=== PATIENT | male | born 1955 | race Caucasian/White ===

== ENCOUNTER 2016-04-20 08:54 | Inpatient (IN) | payer OTHER ==
[~2016-04-20] VITALS: Ht 188 cm; Wt 110.0 kg
[~2016-04-20 08:54] MED LIST: ADVIN50/60 INH; B-CO1CAP17 PO; CALC667C4 PO; CYM/60 PO; INSUINJ4 SC; LACT15SO PO; LEVO25TA PO; MIDO10TA PO; NADO20TA PO; NVLGI/PEN SQ; OMEP20CA9 PO; OXYC1TAB3 PO; PREG75CA PO; RIFA550T2 PO; RRALBUTNEB INH; VTMD1000 PO
[2016-04-20] MEDS ORDERED: METHYLPREDNISOLONE 125 MG VIAL IV STA (09:19)
[2016-04-20] MEDS ORDERED: ALBUT/IPRATROP 3MG/0.5MG NEB 3 ML VIAL INH STA (09:19)
--- NOTE | 2016-04-20 09:45 | DIAGNOSTIC IMAGING REPORT ---
CHEST ONE VIEW PORTABLE CLINICAL HISTORY: Shortness of breath. Evaluate for pneumonia. COMPARISON STUDY: Chest radiograph March 25, 2016. FINDINGS: The patient is rotated. There is no pneumothorax. Blunting of the left costophrenic angle is unchanged and likely due to epicardial fat pad. There is no evidence of pulmonary edema. There is no pneumothorax. Minimal hazy left basilar opacity is present. There are healed left rib fractures. IMPRESSION: 1. Rotated study. Mild left basilar opacity. Atelectasis is favored over pneumonia. 2. Equivocal small left pleural effusion which may reflect epicardial fat pad. Electronically signed by: Jordan Martinez M.D. 04/20/2016 9:43 AM Dictated Date/Time: 04/20/2016 9:41 AM
[2016-04-20] MEDS ORDERED: SODIUM CHLORIDE 0.9% 250ML 250 ML IV STA ×3 (10:22→12:07)
[2016-04-20 11:29] LABS: HEMATOCRIT 32.2 % (42-52); MEAN CELL VOLUME 92.5 fL (80-100); MEAN CORPUSCULAR HGB CONC 33.5 g/dl (32-36); RED BLOOD COUNT 3.48 M/uL (4.7-6.1); WHITE BLOOD COUNT 14.39 K/uL (4.8-10.8)
[2016-04-20 11:36] LABS: INR 1.1 (0.9-1.1); PARTIAL THROMBOPLASTIN RATIO 1.3; PROTHROMBIN TIME (PATIENT) 11.4 SECONDS (9.0-12.0)
[2016-04-20 11:52] LABS: BUN/CREATININE RATIO 5.7 (10-20); CALCIUM 7.3 mg/dl (8.5-10.1); CREATININE 8.1 mg/dl (0.60-1.40); POTASSIUM 4.4 mmol/L (3.5-5.1)
[2016-04-20 11:56] LABS: MEAN PLATELET VOLUME 11.5 fL (7.4-10.4); PLATELET COUNT 75 K/uL (130-400)
[2016-04-20 11:57] LABS: BASO % 0.1 %; BASO ABS # 0.02 K/uL (0-0.2); COMPLETE YES; EOS % 0.1 %; IG% 0.3 %; LARGE PLATELETS 1+; LYMPH % 3.5 %; MONO % 5.7 %; NEUT % 90.3 %
--- NOTE | 2016-04-20 12:11 | DIAGNOSTIC IMAGING REPORT ---
CHEST 2 VIEWS ROUTINE CLINICAL HISTORY: Shortness of breath. Evaluate for pneumonia. COMPARISON STUDY: Chest radiograph March 25, 2016 and April 20, 2016. FINDINGS: Lung volumes are normal. Mild left lower lung opacity likely reflects atelectasis and prominent epicardial fat pad. There is pulmonary vascular congestion. Healed left rib fractures are noted. Cardiomediastinal silhouette is stable allowing for mild patient rotation. IMPRESSION: 1. No consolidation to suggest pneumonia. 2. Linear left lower lung opacity suggestive of atelectasis. 3. Pulmonary vascular congestion without overt pulmonary edema. Electronically signed by: Jordan Martinez M.D. 04/20/2016 12:09 PM Dictated Date/Time: 04/20/2016 12:08 PM
[2016-04-20] MEDS ORDERED: LEVAQUIN 750MG / 150ML D5W IV STA (12:25)
[2016-04-20] MEDS ORDERED: GLUCOSE 10 TABS/TUBE PO PRN (12:45)
[2016-04-20] MEDS ORDERED: ALBUTEROL 0.083% NEBU SOLN 3 ML VIAL INH PRN (12:45)
[2016-04-20] MEDS ORDERED: ONDANSETRON INJ 2 MG/ML 2 ML VIAL IV PRN (12:45)
[2016-04-20] MEDS ORDERED: DEXTROSE 50% 50 ML SYR IV PRN (12:45)
[2016-04-20] MEDS ORDERED: POLYETHYLENE (MIRALAX) 17 GM PACK PO PRN (13:00)
--- NOTE | 2016-04-20 14:15 | DIAGNOSTIC IMAGING REPORT ---
BILATERAL LOWER EXTREMITY VENOUS DOPPLER CLINICAL HISTORY: Shortness of breath. COMPARISON STUDY: Bilateral lower extremity venous Doppler June 30, 2015 and left lower extremity venous Doppler October 29, 2015. TECHNIQUE: Sonography of the deep venous system of the bilateral lower extremities was performed. Compression and augmentation were evaluated. FINDINGS: This exam was compromised by suboptimal penetration. The common femoral, superficial femoral and popliteal veins were compressible. Augmentation was normal. Flow was shown within the deep calf vessels. Note was made of a small complex left popliteal fossa fluid collection that measured 4.8 x 1.9 x 0.7 cm. This may contain calcifications. IMPRESSION: 1. No evidence of deep venous thrombus within the bilateral lower extremities. 2. Suspected small complex left popliteal cyst which may contain calcified bodies. Electronically signed by: Jordan Martinez M.D. 04/20/2016 2:13 PM Dictated Date/Time: 04/20/2016 2:11 PM
--- NOTE | 2016-04-20 14:16 | History and Physical ---
History & Physical Date & Time of Service: Apr 20, 2016 at 13:54 Chief Complaint: SOB Primary Care Physician: Alix Garza M.D. History of Present Illness Source: patient, family (sister, Antoine) This is a 60 yo M with PMHx of ESRD on hemodialysis, DM II, HTN, hypothyroidism , COPD, GERD, cirrhosis of liver presenting to the ED with shortness of breath which has worsened x 1 day. He is accompanied by his sister, Antoine, who helps supply some of the history. Pt reports that last night when he was ready to go to sleep started to feel short of breath. His cough has worsened over the past few days as noted by his sister, but the patient himself cannot admit to this. He does admit to subjective fevers and chills last night. Temperature was not taken at home. He is still smoking 2-3 cigarettes daily and reports that this has not changed. His called the ambulance for him this morning because of worsening shortness of breath. Pulse ox was 88% on room air recorded by EMS. Since being in the ED he has received 3 albuterol nebulizer treatments. He is saturating in the mid 90s on room air. He denies any shortness of breath at this time. Afebrile, CXR is without infiltrates or consolidations. Past Medical/Surgical History Medical Problems: (1) Altered mental status Status: Chronic (2) Anxiety Status: Chronic (3) Benign hypertension Status: Chronic (4) Chronic hepatitis C Status: Chronic (5) Chronic osteoarthritis Status: Chronic (6) Cirrhosis of liver Status: Chronic (7) Closed left acetabular fracture Status: Chronic (8) COPD (chronic obstructive pulmonary disease) Status: Chronic (9) Depression Status: Chronic (10) Diabetes mellitus type 2 Status: Chronic (11) ESRD (end stage renal disease) on dialysis Status: Chronic (12) GERD (gastroesophageal reflux disease) Status: Chronic (13) HISTORY OF TOBACCO USE Status: Chronic (14) Hypothyroid Status: Chronic (15) OTHER PANCYTOPENIA Status: Chronic (16) PERSONAL HISTORY OF PULMONARY EMBOLISM Status: Chronic (17) PORTAL HYPERTENSION Status: Chronic Surgical Problems: (1) H/O knee surgery Status: Chronic (2) S/P cholecystectomy Status: Chronic (3) S/P tonsillectomy Status: Chronic Family History Cancer Diabetes mellitus Heart disease Social History Smoking Status: Current Every Day Smoker (2-3 cigarettes x 53 years) Smokeless Tobacco Use: No Alcohol Use: none Drug Use: none Marital Status: , in relationship Housing status: lives with significant other Occupational Status: disabled Immunizations History of Influenza Vaccine: Yes Influenza Vaccine Date: Dec 07, 2012 History of Tetanus Vaccine?: Unknown Tetanus Immunization Date: Nov 13, 2010 History of Pneumococcal: Yes Pneumococcal Date: Feb 11, 2012 History of Hepatitis B Vaccine: IN PROGRESS HAS HAD 2 SHOTS Hepatitis Immunization Date: Dec 07, 2012 Multi-Drug Resistant Organisms History of MDRO: No Allergies Coded Allergies: Cephalexin (Verified Allergy, Severe, ANAPHYLAXIS, 04/20/16) Acetaminophen (Verified Adverse Reaction, Mild, D/T LIVER, 04/20/16) Home Medications Scheduled Albuterol Sulf (Albuterol Sulfate), 5 MG INH UD Calcium Acetate (Phoslo 667 Mg), 667 MG PO TIDM Cholecalciferol (Vitamin D3), 1,000 INTER.UNIT PO DAILY Duloxetine HCl (Cymbalta), 60 MG PO HS Fluticasone Prop/Salmeterol (Advair Diskus 500/50 60 Dose), 1 PUFF INH BID Insulin Aspart (Novolog Flexpen), 1 DOSE SQ AC Insulin Glargine (Lantus Solostar Pen), 8 UNITS SC DAILY@2100 Lactulose (Constulose), 90 ML PO TID Levothyroxine Sodium (Synthroid), 25 MG PO DAILY Midodrine Hcl (Midodrine Hcl), 10 MG PO 3XWK Nadolol (Corgard), 10 MG PO HS Omeprazole (Prilosec), 20 MG PO BID Pregabalin (Lyrica), 75 MG PO DAILY Rifaximin (Xifaxan), 550 MG PO BID Vitamin B Cmplx/Vitc/Folic Ac (Nephrocaps), 1 CAP PO DAILY Scheduled PRN Oxycodone Ir (Roxicodone Ir), 5 MG PO Q4H PRN for Pain Review of Systems Constitutional: + chills, + fever, + sweats Eyes: No diplopia ENT: No nasal symptoms, No sore throat, No tinnitus, No trouble swallowing Respiratory: + cough, + dyspnea on exertion, + shortness of breath, No sputum, No wheezing Cardiovascular: No chest pain, No orthopnea, No palpitations Abdomen: + diarrhea (with lactulose), No constipation, No nausea, No pain, No vomiting Musculoskeletal: No calf pain, No joint pain, No swelling Genitourinary - Male: + problem reported (+ makes small amount of urine) Neurologic: + problem reported (uses walker for ambulation assistance) Integumentary: No itch, No rash Physical Exam Vital Signs Date Time Temp Pulse Resp B/P Pulse Ox O2 Delivery O2 Flow Rate FiO2 04/20/16 13:33 88 18 84/47 97 Room Air 04/20/16 13:13 90 04/20/16 11:48 90 18 83/43 04/20/16 11:23 90 18 69/43 96 Room Air 04/20/16 10:18 87 18 76/50 97 Nasal Cannula 2.0 04/20/16 09:43 Nasal Cannula 2.0 04/20/16 09:09 97 04/20/16 09:04 95 Room Air 04/20/16 09:02 36.9 96 20 83/60 95 Room Air 04/20/16 09:02 95 Room Air General Appearance: no apparent distress, + obese, + pertinent finding ( chronically ill) Head: normocephalic, atraumatic Eyes: PERRL, EOMI ENT: hearing grossly normal, pharynx normal Neck: no JVD Respiratory/Chest: chest non-tender, no respiratory distress, no accessory muscle use, + pertinent finding (on room air, faintly diminished breath sounds at bilateral bases. + expiratory wheeze in the RLL. ) Cardiovascular: regular rate, rhythm, normal peripheral pulses, + pertinent finding (becomes tachycardic when asked to lean forward for pulmonary exam but quickly resolves) Abdomen/GI: normal bowel sounds, non tender, soft Back: normal inspection, no CVA tenderness Extremities/Musculoskelatal: no calf tenderness, no pedal edema, + pertinent finding (Chronic venous stasis changes of BLE. LUE with AVF with palpable thrill in antecubital region. ) Neurologic/Psych: alert, normal mood/affect, oriented x 3 Skin: warm/dry Diagnostics Laboratory Results Results Past 24 Hours Test 04/20/16 10:44 04/20/16 10:48 04/20/16 11:22 Range/Units Ammonia 40.0 11-32 umol/L White Blood Count 14.39 4.8-10.8 K/uL Red Blood Count 3.48 4.7-6.1 M/uL Hemoglobin 10.8 14.0-18.0 g/dL Hematocrit 32.2 42-52 % Mean Corpuscular Volume 92.5 80-100 fL Mean Corpuscular Hemoglobin 31.0 25-34 pg Mean Corpuscular Hemoglobin Concent 33.5 32-36 g/dl Platelet Count 75 130-400 K/uL Mean Platelet Volume 11.5 7.4-10.4 fL Neutrophils (%) (Auto) 90.3 % Lymphocytes (%) (Auto) 3.5 % Monocytes (%) (Auto) 5.7 % Eosinophils (%) (Auto) 0.1 % Basophils (%) (Auto) 0.1 % Neutrophils # (Auto) 13.00 1.4-6.5 K/uL Lymphocytes # (Auto) 0.50 1.2-3.4 K/uL Monocytes # (Auto) 0.82 0.11-0.59 K/uL Eosinophils # (Auto) 0.01 0-0.5 K/uL Basophils # (Auto) 0.02 0-0.2 K/uL RDW Standard Deviation 54.3 36.4-46.3 fL RDW Coefficient of Variation 16.2 11.5-14.5 % Immature Granulocyte % (Auto) 0.3 % Immature Granulocyte # (Auto) 0.04 0.00-0.02 K/uL Large Platelets 1+ Prothrombin Time 11.4 9.0-12.0 SECONDS Prothromb Time International Ratio 1.1 0.9-1.1 Activated Partial Thromboplast Time 33.0 21.0-31.0 SECONDS Partial Thromboplastin Ratio 1.3 Sodium Level 137 136-145 mmol/L Potassium Level 4.4 3.5-5.1 mmol/L Chloride Level 100 98-107 mmol/L Carbon Dioxide Level 25 21-32 mmol/L Anion Gap 12.0 3-11 mmol/L Blood Urea Nitrogen 46 7-18 mg/dl Creatinine 8.10 0.60-1.40 mg/dl Est Creatinine Clear Calc Drug Dose 12.8 ml/min Estimated GFR () 7.5 Estimated GFR (Non- 6.5 BUN/Creatinine Ratio 5.7 10-20 Random Glucose 235 70-99 mg/dl Calcium Level 7.3 8.5-10.1 mg/dl Total Bilirubin 1.2 0.2-1 mg/dl Direct Bilirubin 0.5 0-0.2 mg/dl Aspartate Amino Transf (AST/SGOT) 20 15-37 U/L Alanine Aminotransferase (ALT/SGPT) 12 12-78 U/L Alkaline Phosphatase 141 45-117 U/L Total Protein 5.5 6.4-8.2 gm/dl Albumin 1.9 3.4-5.0 gm/dl Bedside Lactic Acid Venous 2.30 0.90-1.70 mmol/L Microbiology Results 04/20/16 Blood Culture, Received Pending 04/20/16 Blood Culture, Received Pending Diagnostic Radiology CHEST 2 VIEWS ROUTINE CLINICAL HISTORY: Shortness of breath. Evaluate for pneumonia. COMPARISON STUDY: Chest radiograph March 25, 2016 and April 20, 2016. FINDINGS: Lung volumes are normal. Mild left lower lung opacity likely reflects atelectasis and prominent epicardial fat pad. There is pulmonary vascular congestion. Healed left rib fractures are noted. Cardiomediastinal silhouette is stable allowing for mild patient rotation. IMPRESSION: 1. No consolidation to suggest pneumonia. 2. Linear left lower lung opacity suggestive of atelectasis. 3. Pulmonary vascular congestion without overt pulmonary edema. Electronically signed by: Jordan Martinez M.D. 04/20/2016 12:09 PM Dictated Date/Time: 04/20/2016 12:08 PM EKG Vent. rate 95 BPM NH interval 168 ms QRS duration 76 ms QT/QTc 392/492 ms P-R-T axes [address] elevations or ischemic changes noted Impression Assessment and Plan This is a 60 yo M with PMHx ESRD on hemodialysis, DM II, HTN, hypothyroidism, COPD, GERD, cirrhosis of liver presenting to the ED with shortness of breath which has worsened x 1 day. Shortness of Breath with PMHx of COPD - Admit to med/surg - Cont duonebs Q4H and Q2H prn - CXR reviewed as above and without signs of pna or consolidation - Will check influenza - Saturating in mid 90s on room air after 3 duonebs and Solumedrol 125 IV - Bcx drawn, will follow - IV levaquin started, will continue Hepatic Encephalopathy - Ammonia =40, this is relatively low in comparison to other admission levels where it has been up in the 200s. - Pt was recently admitted at end of march, will watch closely. - Mild asterixis on exam - Will continue lactulose PO TID. ESRD on hemodialysis - Nephrology consulted- normal HD scheduled for today and the pt has not gotten it yet. - M/W/F - Cont nephrocaps HTN - Takes midodrine 3x per week as an outpatient on dialysis days - Cont nadolol DM II - Continue Lantus 8 U QHS - ISS with accuchecks, ACHS Depression - Cont duloxetine Hypothyroidism - Cont levothyroxine DVT ppx: heparin, Teds, scds CODE STATUS: DNR Disposition: From home, will await blood cultures, stability of respiratory status Level of Care Med/Surg Resuscitation Status DO NOT RESUSCITATE VTE Prophylaxis VTE Risk Assessment Done? Y/N: Yes Risk Level: Low Given or contraindicated: SCD's
--- NOTE | 2016-04-20 14:27 | EMERGENCY ROOM VISIT NOTE ---
History Report prepared by Marisela: Soy Blunt Under the Supervision of: Dr. Dalton Pruett M.D. First contact with patient: 09:10 Chief Complaint: SHORTNESS OF BREATH Stated Complaint: SOB Nursing Triage Summary: Pt presents via ALS litter for eval of worsening sob x 24 hours. Pt due for dialysis today. Pt denies pain. Pt reports cough of agarwal sputum. EMS reports pt was 88% RA on their arrival. Pt given duoneb and placed on 2L NC en route, sat 98%. History of Present Illness The patient is a 60 year old male with a history of COPD who presents to the Emergency Room with complaints of worsening shortness of breath beginning one day prior to arrival. He states he became short of breath last night, and it worsened around 0100. The patient notes he began shaking uncontrollably, was wheezing, and became very warm. He states he used his nebulizer last night without relief. The patient associates a productive cough and wheezing with today's symptoms. He notes he is still a smoker, and smokes 2-3 cigarettes per day. The patient states he received a Duoneb treatment in the ambulance, which has alleviated his symptoms. He notes he did not smoke today. It is noted the patient's initial room air oxygen saturation per ambulance was 88%. As per , the patient tends to decline after large meals, and the patient consumed one last evening. The patient also complains of persistent wounds on his left food and buttock. He states he is a dialysis patient and has an appointment scheduled for today. The patient also notes he has a history of tremors, but the shaking last night was not the same. He denies experiencing chest pain. Source of History: patient Onset: one day [employer] Position: other (global) Symptom Intensity: moderate Quality: other (shortness of breath) Timing: worsening Modifying Factors (Relieving): other (Duoneb) Associated Symptoms: + SOB, + cough (productive), No chest pain Note: Associated symptoms: resolved shaking, wheezing. Review of Systems See HPI for pertinent positives & negatives. A total of 10 systems reviewed and were otherwise negative. Past Medical & Surgical Medical Problems: (1) Altered mental status (2) Anemia (3) Anxiety (4) Benign hypertension (5) Chronic hepatitis C (6) Chronic osteoarthritis (7) Cirrhosis of liver (8) Closed left acetabular fracture (9) COPD (chronic obstructive pulmonary disease) (10) Depression (11) Diabetes mellitus type 2 (12) Diabetic peripheral neuropathy associated with type 2 diabetes mellitus (13) End stage liver disease (14) ESRD (end stage renal disease) on dialysis (15) Foot deformity (16) GERD (gastroesophageal reflux disease) (17) Hepatic encephalopathy (18) Hepatic encephalopathy (19) History of diabetic ulcer of foot (20) HISTORY OF TOBACCO USE (21) Hypothyroid (22) Hypoxia (23) Loss of sensation (24) OTHER PANCYTOPENIA (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 (26) PORTAL HYPERTENSION (27) Pre-ulcerative corn or callous (28) Problem with dialysis access (29) Secondary hyperparathyroidism of renal origin (30) Toxic encephalopathy Surgical Problems: (1) H/O knee surgery (2) S/P cholecystectomy (3) S/P tonsillectomy Family History Cancer Diabetes mellitus Heart disease Social History Smoking Status: Current Every Day Smoker Alcohol Use: none, other Drug Use: none Marital Status: , in relationship Housing Status: lives alone Occupation Status: disabled Current/Historical Medications Scheduled Albuterol Sulf (Albuterol Sulfate), 5 MG INH UD Calcium Acetate (Phoslo 667 Mg), 667 MG PO TIDM Cholecalciferol (Vitamin D3), 1,000 INTER.UNIT PO DAILY Duloxetine HCl (Cymbalta), 60 MG PO HS Fluticasone Prop/Salmeterol (Advair Diskus 500/50 60 Dose), 1 PUFF INH BID Insulin Aspart (Novolog Flexpen), 1 DOSE SQ AC Insulin Glargine (Lantus Solostar Pen), 8 UNITS SC DAILY@2100 Lactulose (Constulose), 90 ML PO TID Levothyroxine Sodium (Synthroid), 25 MG PO DAILY Midodrine Hcl (Midodrine Hcl), 10 MG PO 3XWK Nadolol (Corgard), 10 MG PO HS Omeprazole (Prilosec), 20 MG PO BID Pregabalin (Lyrica), 75 MG PO DAILY Rifaximin (Xifaxan), 550 MG PO BID Vitamin B Cmplx/Vitc/Folic Ac (Nephrocaps), 1 CAP PO DAILY Scheduled PRN Oxycodone Ir (Roxicodone Ir), 5 MG PO Q4H PRN for Pain Allergies Coded Allergies: Cephalexin (Verified Allergy, Severe, ANAPHYLAXIS, 04/20/16) Acetaminophen (Verified Adverse Reaction, Mild, D/T LIVER, 04/20/16) Physical Exam Vital Signs Date Time Temp Pulse Resp B/P Pulse Ox O2 Delivery O2 Flow Rate FiO2 04/20/16 13:33 88 18 84/47 97 Room Air 04/20/16 13:13 90 04/20/16 11:48 90 18 83/43 04/20/16 11:23 90 18 69/43 96 Room Air 04/20/16 10:18 87 18 76/50 97 Nasal Cannula 2.0 04/20/16 09:43 Nasal Cannula 2.0 04/20/16 09:09 97 04/20/16 09:04 95 Room Air 04/20/16 09:02 36.9 96 20 83/60 95 Room Air 04/20/16 09:02 95 Room Air Physical Exam Constitutional: Vital signs reviewed. Hypotensive. Eyes: Pupils are equal round reactive to light. Conjunctiva are noninjected. ENT: Pharynx is clear without erythema or exudate. Mucous membranes are dry. Neck supple without meningeal signs. Respiratory: Diffuse wheezing bilaterally. Breath sounds are equal bilaterally. Cardiovascular: Regular rate and rhythm. No rubs or gallops. GI: Soft, nondistended and nontender. Bowel sounds are present. Musculoskeletal: No peripheral edema. Chronic venous stasis discoloration. Ulcer to the plantar aspect of the left foot without cellulitis. Integumentary: Sacral decubitus ulcer without signs of infection. No cyanosis. Neurological: The patient is awake and alert. No focal deficits. Psychiatric: Normal affect. Medical Decision & Procedures ER Provider Diagnostic Interpretation: X-ray results as stated below per interpretation by me and the radiologist: US results as stated below per my review and radiologist interpretation. CHEST ONE VIEW PORTABLE CLINICAL HISTORY: Shortness of breath. Evaluate for pneumonia. COMPARISON STUDY: Chest radiograph March 25, 2016. FINDINGS: The patient is rotated. There is no pneumothorax. Blunting of the left costophrenic angle is unchanged and likely due to epicardial fat pad. There is no evidence of pulmonary edema. There is no pneumothorax. Minimal hazy left basilar opacity is present. There are healed left rib fractures. IMPRESSION: 1. Rotated study. Mild left basilar opacity. Atelectasis is favored over pneumonia. 2. Equivocal small left pleural effusion which may reflect epicardial fat pad. Electronically signed by: Jordan Martinez M.D. 04/20/2016 9:43 AM CHEST 2 VIEWS ROUTINE CLINICAL HISTORY: Shortness of breath. Evaluate for pneumonia. COMPARISON STUDY: Chest radiograph March 25, 2016 and April 20, 2016. FINDINGS: Lung volumes are normal. Mild left lower lung opacity likely reflects atelectasis and prominent epicardial fat pad. There is pulmonary vascular congestion. Healed left rib fractures are noted. Cardiomediastinal silhouette is stable allowing for mild patient rotation. IMPRESSION: 1. No consolidation to suggest pneumonia. 2. Linear left lower lung opacity suggestive of atelectasis. 3. Pulmonary vascular congestion without overt pulmonary edema. Electronically signed by: Jordan Martinez M.D. 04/20/2016 12:09 PM BILATERAL LOWER EXTREMITY VENOUS DOPPLER CLINICAL HISTORY: Shortness of breath. COMPARISON STUDY: Bilateral lower extremity venous Doppler June 30, 2015 and left lower extremity venous Doppler October 29, 2015. TECHNIQUE: Sonography of the deep venous system of the bilateral lower extremities was performed. Compression and augmentation were evaluated. FINDINGS: This exam was compromised by suboptimal penetration. The common femoral, superficial femoral and popliteal veins were compressible. Augmentation was normal. Flow was shown within the deep calf vessels. Note was made of a small complex left popliteal fossa fluid collection that measured 4.8 x 1.9 x 0.7 cm. This may contain calcifications. IMPRESSION: 1. No evidence of deep venous thrombus within the bilateral lower extremities. 2. Suspected small complex left popliteal cyst which may contain calcified bodies. Electronically signed by: Jordan Martinez M.D. 04/20/2016 2:13 PM Laboratory Results 04/20/16 10:48 Red Blood Count 3.48, Mean Corpuscular Volume 92.5, Mean Corpuscular Hemoglobin 31.0, Mean Corpuscular Hemoglobin Concent 33.5, Mean Platelet Volume 11.5, Neutrophils (%) (Auto) 90.3, Lymphocytes (%) (Auto) 3.5, Monocytes (%) (Auto) 5.7, Eosinophils (%) (Auto) 0.1, Basophils (%) (Auto) 0.1, Neutrophils # (Auto) 13.00, Lymphocytes # (Auto) 0.50, Monocytes # (Auto) 0.82, Eosinophils # (Auto) 0.01, Basophils # (Auto) 0.02 04/20/16 10:48 Test 04/20/16 10:44 04/20/16 10:48 04/20/16 11:22 Ammonia 40.0 umol/L (11-32) White Blood Count 14.39 K/uL (4.8-10.8) Red Blood Count 3.48 M/uL (4.7-6.1) Hemoglobin 10.8 g/dL (14.0-18.0) Hematocrit 32.2 % (42-52) Mean Corpuscular Volume 92.5 fL (80-100) Mean Corpuscular Hemoglobin 31.0 pg (25-34) Mean Corpuscular Hemoglobin Concent 33.5 g/dl (32-36) Platelet Count 75 K/uL (130-400) Mean Platelet Volume 11.5 fL (7.4-10.4) Neutrophils (%) (Auto) 90.3 % Lymphocytes (%) (Auto) 3.5 % Monocytes (%) (Auto) 5.7 % Eosinophils (%) (Auto) 0.1 % Basophils (%) (Auto) 0.1 % Neutrophils # (Auto) 13.00 K/uL (1.4-6.5) Lymphocytes # (Auto) 0.50 K/uL (1.2-3.4) Monocytes # (Auto) 0.82 K/uL (0.11-0.59) Eosinophils # (Auto) 0.01 K/uL (0-0.5) Basophils # (Auto) 0.02 K/uL (0-0.2) RDW Standard Deviation 54.3 fL (36.4-46.3) RDW Coefficient of Variation 16.2 % (11.5-14.5) Immature Granulocyte % (Auto) 0.3 % Immature Granulocyte # (Auto) 0.04 K/uL (0.00-0.02) Large Platelets 1+ Prothrombin Time 11.4 SECONDS (9.0-12.0) Prothromb Time International Ratio 1.1 (0.9-1.1) Activated Partial Thromboplast Time 33.0 SECONDS (21.0-31.0) Partial Thromboplastin Ratio 1.3 Anion Gap 12.0 mmol/L (3-11) Est Creatinine Clear Calc Drug Dose 12.8 ml/min Estimated GFR () 7.5 Estimated GFR (Non- 6.5 BUN/Creatinine Ratio 5.7 (10-20) Calcium Level 7.3 mg/dl (8.5-10.1) Total Bilirubin 1.2 mg/dl (0.2-1) Direct Bilirubin 0.5 mg/dl (0-0.2) Aspartate Amino Transf (AST/SGOT) 20 U/L (15-37) Alanine Aminotransferase (ALT/SGPT) 12 U/L (12-78) Alkaline Phosphatase 141 U/L (45-117) Total Protein 5.5 gm/dl (6.4-8.2) Albumin 1.9 gm/dl (3.4-5.0) Bedside Lactic Acid Venous 2.30 mmol/L (0.90-1.70) Laboratory results as reviewed by me. Medications Administered Medications (Trade) Dose Ordered Sig/Clarice Route Start Time Stop Time Status Last Admin Dose Admin Methylprednisolone Sodium Succinate (Solu-Medrol IV) 125 mg NOW STAT IV 04/20/16 09:19 04/20/16 09:21 DC 04/20/16 10:18 125 MG Albuterol/ Ipratropium 3 ml 3 ml NOW STAT INH 04/20/16 09:19 04/20/16 09:21 DC 04/20/16 09:41 3 ML Sodium Chloride 250 ml @ 999 mls/hr Q16M STAT IV 04/20/16 10:22 04/20/16 10:37 DC 04/20/16 10:25 999 MLS/HR Sodium Chloride 250 ml @ 999 mls/hr Q16M STAT IV 04/20/16 11:16 04/20/16 11:31 DC 04/20/16 11:16 999 MLS/HR Sodium Chloride (Nss 250ml) 250 ml @ 999 mls/hr Q16M STAT IV 04/20/16 12:07 04/20/16 12:22 DC 04/20/16 12:24 999 MLS/HR Levofloxacin (Levaquin / D5W) 750 mg NOW STAT IV 04/20/16 12:25 04/20/16 12:27 DC 04/20/16 12:37 750 MG ECG Indication: SOB/dyspnea Rate (beats per minute): 95 Rhythm: normal sinus Findings: no acute ischemic change, no ectopy ED Course 0912: The patient was evaluated in room A12. A complete history and physical exam was performed. 0919: Ordered Duoneb 3 ml INH, Solu-Medrol IV 125 mg IV. 1020: I reassessed the patient at this time, and his blood pressure is 76/50. The patient is feeling better without dizziness or lightheadedness. His wheezing has diminished on exam. 1022: Ordered Sodium Chloride 250 ml @ 999 mls/hr IV. 1115: I reassessed the patient, and the patient's blood pressure is 69 systolic. He does not feel any worse at this time and denies lightheadedness. The patient will receive another fluid bolus. 1116: Ordered Sodium Chloride 250 ml @ 999 mls/hr IV. 1205: I reassessed the patient, and his blood pressure is improved to 83/43. Lactic acid is 2.3. Troponin is 0. 1207: Ordered Sodium Chloride 250 ml @ 999 mls/hr IV. 1219: I spoke to MANE Vera (Hospitalist) about the patient's case, and she will follow the patient for further evaluation. 1223: I reassessed the patient at this time, and he is feeling much better. The patient's blood pressure is still in the 80s systolic. 1225: Ordered Levofloxacin 750 mg IV. Medical Decision This is a 60-year-old male who presents with shortness of breath and low blood pressure. Differential diagnosis includes COPD exacerbation, CHF, pneumonia, bronchitis, sepsis. I did perform a limited focused review of portions of the patient's old chart on the electronic medical record. The patient was here April 17 for a sacral decubitus. His blood pressure normally runs low, and he was 90/56. I did evaluate the patient as noted above. IV access was established. The patient was placed on a continuous front desk monitor. He is hypotensive at normally runs low blood pressures. He denies feeling lightheaded or dizzy. He is wheezing on examination bilaterally. I did treat him with Solu-Medrol IV. He was also given a DuoNeb. I did order and personally review the patient's 12- lead EKG and chest x-ray as described above. Chest x-ray does not demonstrate pneumonia. I did order and review the patient's blood work as noted in the electronic medical record. His white blood cell count is elevated. Lactic acid is also elevated. His creatinine is elevated consistent with end-stage renal disease. I did order stat bedside ultrasounds of the lower extremities. I did review the images myself as well as the radiology report as described above. There is no evidence of DVT. I did reassess the patient multiple times. He was given small boluses of saline for his blood pressure. His wheezing did improve. I did feel the patient is to be hospitalized given his fluctuating blood pressure, chills and fever at home and elevated white blood cell count. I did cover him empirically with Zosyn IV for a potential pulmonary source despite a negative chest x-ray. I did discuss the case with the hospitalist and housing case manager. Consults Time Called: 1211 Consulting Physician: MANE Vera (Hospitalist) Returned Call: 1219 I spoke to MANE Vera (Hospitalist) about the patient's case, and she will follow the patient for further evaluation. Impression Primary Impression: COPD exacerbation Additional Impressions: Hyperammonemia Hypotension ESRD (end stage renal disease) on dialysis Scribe Attestation The scribe's documentation has been prepared under my direct and personally reviewed by me in its entirety. I confirm that the note above accurately reflects all work, treatment, procedures, and medical decision making performed by me. Departure Information Dispostion Being Evaluated By Hospitalist (MANE Vera (Hospitalist)) Referrals Alix Garza M.D. (PCP) Problem Qualifiers Additional Impressions:
[2016-04-20] MEDS ORDERED: LEVOFLOXACIN CONSULT ACTIVE PRN (14:45)
[2016-04-20 14:46] VITALS: BP 92/57; PULSE 63; TEMP 36.9; O2SAT 95
[2016-04-20 15:29] VITALS: BMI 30.3
--- NOTE | 2016-04-20 16:42 | Nephrology Consultation ---
Nephrology Consultation Date & Providers Date of Consultation: Apr 20, 2016. Primary Care Provider: Alix Garza M.D. Referring Provider: Reason for Consultation ESRD History of Present Illness Loyd is a 60-year-old male with nd-stage renal disease on hemodialysis Wednesday. Medical history of end-stage liver disease, hypertension and recurrent hospital admission for hepatic encephalopathy. Nephrology consult was requested to manage hemodialysis while inpatient. Electronic medical records including labs and imaging are reviewed in the patient's visit. Loyd has end-stage renal disease, [facility] His last dialysis was on Wednesday. He completed a full treatment without complications. He states that he saw his primary grinding wheel operator (Dr. Trimble during the treatment). On Wednesday evening, Loyd developed progressive worsening shortness of breath. He describes shaking chills overnight. Today, he was very lethargic. Due to the symptoms, he was taken to the ER instead of dialysis today. At the time of my evaluation this afternoon, Loyd states that he feels much better than he had. He denies any current shortness of breath or orthopnea. Past Medical/Surgical History Medical: # Hepatitis C + # Alcoholic cirrhosis - on transplant list at [facility] # AODM # ESRD on MWF HD at [facility] unit # HTN # Obesity # Hypothyroidism Surgical: # Cholecystectomy # Bilateral knee surgeries # R IJ THC # Pilonidal cyst removal # Cataract extraction # L antecubital AVF created 07/11/[address] Lao Allergies Coded Allergies: Cephalexin (Verified Allergy, Severe, ANAPHYLAXIS, 04/20/16) Acetaminophen (Verified Adverse Reaction, Mild, D/T LIVER, 04/20/16) Inpatient Medications Current Inpatient Medications Medications (Trade) Dose Ordered Sig/Clarice Route Start Time Stop Time Status Last Admin Dose Admin Polyethylene (Miralax Powder Packet) 17 gm DAILY PRN PO 04/20/16 13:00 05/20/16 12:59 Ondansetron HCl (Zofran Inj) 4 mg Q6H PRN IV 04/20/16 12:45 05/20/16 12:44 Albuterol Sulfate (Ventolin 0.083% 2.5MG/3ML Neb) 2.5 mg Q4R PRN INH 04/20/16 12:45 05/20/16 12:44 Calcium Acetate (Phoslo Cap) 667 mg TIDM PO 04/20/16 17:00 05/20/16 17:59 Cholecalciferol (Vitamin D Tab) 1,000 inter.unit DAILY PO 04/21/16 09:00 05/21/16 08:59 Duloxetine HCl (Cymbalta Cap) 60 mg HS PO 04/20/16 21:00 05/20/16 20:59 Salmeterol Xinafoate/ Fluticasone (Advair Diskus 500/50 Inh) 1 puff BID INH 04/20/16 21:00 05/20/16 20:59 Insulin Glargine (Lantus Solostar Pen) 8 unit DAILY@2100 SC 04/20/16 21:00 05/20/16 20:59 Lactulose (Chronulac Syrup) 60 gm TID PO 04/20/16 21:00 05/20/16 20:59 Levothyroxine Sodium (Synthroid Tab) 25 mcg DAILYBB PO 04/21/16 06:30 05/21/16 06:59 Nadolol (Corgard Tab) 10 mg HS PO 04/20/16 21:00 05/20/16 20:59 Oxycodone HCl (Roxicodone Immediate Rel Tab) 5 mg Q4H PRN PO 04/20/16 12:45 05/04/16 12:44 Pregabalin (Lyrica Cap) 75 mg DAILY PO 04/21/16 09:00 05/21/16 08:59 Rifaximin (Xifaxan Tab) 550 mg BID PO 04/20/16 21:00 05/20/16 20:59 Vitamin B Complex/ Vit C/Folic Acid (Nephrocaps) 1 cap DAILY PO 04/21/16 09:00 05/21/16 08:59 Pantoprazole Sodium (Protonix Tab) 40 mg BID PO 04/20/16 21:00 05/20/16 20:59 Insulin Aspart (novoLOG ASPART) SLIDING SCALE If C... ACHS SC 04/20/16 16:00 05/20/16 15:59 Glucose (Glucose Chew Tab) 4-8 Tablets 4 Tabl... UD PRN PO 1/16/17 12:45 05/20/16 12:44 Dextrose (Dextrose 50% 50ML Syringe) 25-50ML OF 50% DW IV FOR... UD PRN IV 04/20/16 12:45 05/20/16 12:44 Midodrine 10 mg 10 mg MoWeFr@0900 PO 04/22/16 09:00 05/22/16 08:59 Levofloxacin/Prmx (Levaquin / D5W/ Premixed D5W) 50 ml @ 100 mls/hr Q48H IV 04/22/16 12:00 04/28/16 14:14 Levofloxacin (Consult) 1 ea UD PRN N/A 04/20/16 14:45 05/20/16 14:44 Heparin Sodium (Porcine) (Heparin Sq 5000 Unit/0.5ml) 5,000 unit Q12 SQ 04/20/16 21:00 05/20/16 20:59 Family History Cancer Diabetes mellitus Heart disease Social History Smoking Status: Current Every Day Smoker Smokeless Tobacco Use: No Alcohol Use: none Drug Use: none Marital Status: , in relationship Housing Status: lives with significant other Occupation: disabled Review of Systems A complete review of systems was performed. Pertinent positives are noted above. All other systems are negative. Physical Exam Date Time Temp Pulse Resp B/P Pulse Ox O2 Delivery O2 Flow Rate FiO2 04/20/16 14:46 36.9 63 18 92/57 95 Room Air 04/20/16 13:33 88 18 84/47 97 Room Air 04/20/16 13:13 90 04/20/16 11:48 90 18 83/43 04/20/16 11:23 90 18 69/43 96 Room Air 04/20/16 10:18 87 18 76/50 97 Nasal Cannula 2.0 04/20/16 09:43 Nasal Cannula 2.0 04/20/16 09:09 97 04/20/16 09:04 95 Room Air 04/20/16 09:02 36.9 96 20 83/60 95 Room Air 04/20/16 09:02 95 Room Air General Appearance: no apparent distress, + obese Head: normocephalic, atraumatic Eyes: normal inspection, sclerae normal ENT: normal ENT inspection, pharynx normal Neck: supple, no JVD Respiratory/Chest: lungs clear, no respiratory distress, no accessory muscle use Cardiovascular: regular rate, rhythm Abdomen/GI: non tender, soft Back: normal inspection, no muscle spasm Extremities/Musculoskelatal: normal inspection, no pedal edema Neurologic/Psych: alert, normal mood/affect Laboratory Results Last 24 Hours Test 04/20/16 10:44 04/20/16 10:48 04/20/16 11:22 Ammonia 40.0 umol/L White Blood Count 14.39 K/uL Red Blood Count 3.48 M/uL Hemoglobin 10.8 g/dL Hematocrit 32.2 % Mean Corpuscular Volume 92.5 fL Mean Corpuscular Hemoglobin 31.0 pg Mean Corpuscular Hemoglobin Concent 33.5 g/dl Platelet Count 75 K/uL Mean Platelet Volume 11.5 fL Neutrophils (%) (Auto) 90.3 % Lymphocytes (%) (Auto) 3.5 % Monocytes (%) (Auto) 5.7 % Eosinophils (%) (Auto) 0.1 % Basophils (%) (Auto) 0.1 % Neutrophils # (Auto) 13.00 K/uL Lymphocytes # (Auto) 0.50 K/uL Monocytes # (Auto) 0.82 K/uL Eosinophils # (Auto) 0.01 K/uL Basophils # (Auto) 0.02 K/uL RDW Standard Deviation 54.3 fL RDW Coefficient of Variation 16.2 % Immature Granulocyte % (Auto) 0.3 % Immature Granulocyte # (Auto) 0.04 K/uL Large Platelets 1+ Prothrombin Time 11.4 SECONDS Prothromb Time International Ratio 1.1 Activated Partial Thromboplast Time 33.0 SECONDS Partial Thromboplastin Ratio 1.3 Sodium Level 137 mmol/L Potassium Level 4.4 mmol/L Chloride Level 100 mmol/L Carbon Dioxide Level 25 mmol/L Anion Gap 12.0 mmol/L Blood Urea Nitrogen 46 mg/dl Creatinine 8.10 mg/dl Est Creatinine Clear Calc Drug Dose 12.8 ml/min Estimated GFR () 7.5 Estimated GFR (Non- 6.5 BUN/Creatinine Ratio 5.7 Random Glucose 235 mg/dl Calcium Level 7.3 mg/dl Total Bilirubin 1.2 mg/dl Direct Bilirubin 0.5 mg/dl Aspartate Amino Transf (AST/SGOT) 20 U/L Alanine Aminotransferase (ALT/SGPT) 12 U/L Alkaline Phosphatase 141 U/L Total Protein 5.5 gm/dl Albumin 1.9 gm/dl Bedside Lactic Acid Venous 2.30 mmol/L Impression (1) End stage liver disease (2) Anemia Loyd is a 60-year-old male well known from multiple prior admissions. He was admitted with shortness of breath and shaking chills. Medical history notable for ESRD on HD MWF. He missed his scheduled dialysis treatment today. 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 Trimble - EDW 103 kg, 4 hr Qb 350), mechanical fall resulting in rib and left acetabular fracture (June 2015) , repeated hospitalization for narcotic overdose & hepatic encephalopathy. Recommendations END STAGE RENAL DISEASE: -- Patient was last dialyzed Wednesday. Volume status and electrolyte balance are acceptable at this time. No acute indication for HD today. -- Plan HD tomorrow AM -- Monitor serial PRP ANEMIA: -- Chronic, stable -- Hemoglobin at goal -- No need for SUE at this time ID: -- Cultures pending SHORTNESS OF BREATH: -- Subjectively improved -- CXR reviewed
[2016-04-20] MEDS: CALCIUM ACETATE 667MG GELCAP PO SCH (17:08)
[2016-04-20] MEDS: INSULIN ASPART 100 UNITS/ML 3 ML PEN SC SCH ×2 (17:51→21:12)
[2016-04-20 18:32] LABS: INFLUENZA A PCR Neg for Influ A (NEG); INFLUENZA B PCR Neg for Influ B (NEG)
[2016-04-20] MEDS ORDERED: INSULIN GLARGINE SOLOSTAR 100 UNITS/ML 3 ML PEN SC SCH (21:00)
[2016-04-20] MEDS: FLUTICASONE/SALMETEROL (ADVAIR) 500/50 INH 14 PUFF INH SCH (21:00)
[2016-04-20] MEDS: LACTULOSE SYRUP 10 GM/15 ML BTL 473 ML PO SCH (21:01)
[2016-04-20] MEDS: DULOXETINE HCL 60 MG CAP PO SCH (21:02)
[2016-04-20] MEDS: RIFAXIMIN TAB 550 MG TAB PO SCH (21:02)
[2016-04-20] MEDS: PANTOprazole SOD 40 MG TAB PO SCH (21:02)
[2016-04-20] MEDS: NADOLOL 40 MG TAB PO SCH (21:03)
[2016-04-20] MEDS: HEPARIN SOD 5000 UNIT/0.5 ML CARP SQ SCH (21:13)
[2016-04-20] MEDS: OXYCODONE HCL IR 5 MG TAB (IMMEDIATE RELEASE) PO PRN (22:02)
[2016-04-20 23:59] VITALS: O2SAT 95
[2016-04-21] VITALS (20 sets, daily range): BP systolic 80–119; BP diastolic 38–78; PULSE 51–88; TEMP 36.2–36.9; O2SAT 92–94; Ht 188 cm; Wt 110.0 kg
[2016-04-21] MEDS: LEVOTHYROXINE 25 MCG TAB PO SCH (06:23)
[2016-04-21] MEDS: LACTULOSE SYRUP 10 GM/15 ML BTL 473 ML PO SCH ×3 (07:48→21:09)
[2016-04-21] MEDS: FLUTICASONE/SALMETEROL (ADVAIR) 500/50 INH 14 PUFF INH SCH ×2 (07:48→21:09)
[2016-04-21] MEDS: NEPHROCAPS PO SCH (07:49)
[2016-04-21] MEDS: RIFAXIMIN TAB 550 MG TAB PO SCH ×2 (07:49→21:10)
[2016-04-21] MEDS: OXYCODONE HCL IR 5 MG TAB (IMMEDIATE RELEASE) PO PRN ×2 (07:49→21:54)
[2016-04-21] MEDS: CALCIUM ACETATE 667MG GELCAP PO SCH ×3 (07:49→21:09)
[2016-04-21] MEDS: PANTOprazole SOD 40 MG TAB PO SCH ×2 (07:49→21:10)
[2016-04-21] MEDS: CHOLECALCIFEROL 1000 INTER.UNIT TAB PO SCH (07:49)
[2016-04-21] MEDS: HEPARIN SOD 5000 UNIT/0.5 ML CARP SQ SCH ×2 (07:51→21:20)
[2016-04-21] MEDS: INSULIN ASPART 100 UNITS/ML 3 ML PEN SC SCH ×4 (08:27→21:19)
--- NOTE | 2016-04-21 08:34 | Clinical Documentation Query ---
QUERY 1 OF [address] PARISI, In your clinical opinion is this patient being managed for: ( x ) possible COPD exacerbation ( ) Other explanation of clinical findings (Please Explain) ( ) Unable to determine (Please Define) ( ) Need to Discuss ( ) Not Agree The medical record reflects the following clinical findings, treatment, and risk factors. Clinical Indicators: 60 yo male presenting with increasing dyspnea. EMS noted O2 sat on RA was 88% initially. Diffuse wheezing bilaterally, cough present. CXR noted to be without consolidation to suggest pneumonia. Treatment: IV solumedrol, IV levaquin, duonebs, incentive spirometry, O2 prn Risk Factors: COPD, chronic smoker QUERY 2 OF 2 Incomplete documentation exists in the clinical record re: sacral decubitus ulcer noted in the ER impression. H/P provides no description of ulcer. Nursing notes indicate pt with a skin tear. Pt also presented to the ER on 04/17/16 where documentation reflects a 2 cm sacral decubitus ulcer, noting that treatment included packing of site and recommended follow-up with wound care clinic. In your clinical opinion is this patient being managed for: ( x ) Sacral pressure ulcer, stage 2, POA ( ) Sacral pressure ulcer, stage 3, POA ( ) Sacral pressure ulcer, stage 4, POA ( ) Other explanation of clinical findings (Please Explain) ( ) Unable to determine (Please Define) ( ) Need to Discuss ( ) Not Agree Please clarify and document your clinical opinion in the progress notes and discharge summary. Terms such as "probable", "suspected", "likely", "questionable", "possible", or "still to be ruled out" are acceptable. IF IN AGREEMENT, YOU MUST DOCUMENT ABOVE DIAGNOSTIC STATEMENT IN DAILY PROGRESS NOTES AND DISCHARGE SUMMARY. This document is not part of the patient's record. Thank You, Surekha Salazar, LAKESHIA [phone]
[2016-04-21 08:50] LABS: HEMATOCRIT 32.4 % (42-52); MEAN CELL VOLUME 92.6 fL (80-100); MEAN CORPUSCULAR HEMOGLOBIN 31.1 pg (25-34); MEAN CORPUSCULAR HGB CONC 33.6 g/dl (32-36); MEAN PLATELET VOLUME 12.5 fL (7.4-10.4); PLATELET COUNT 80 K/uL (130-400); WHITE BLOOD COUNT 6.76 K/uL (4.8-10.8)
[2016-04-21 08:51] LABS: COMPLETE YES; IG% 0.1 %; LYMPH % 7.2 %; LYMPH ABS # 0.49 K/uL (1.2-3.4); MONO % 2.8 %; NEUT % 89.9 %
[2016-04-21 08:57] LABS: BUN/CREATININE RATIO 6.7 (10-20); CALCIUM 7.9 mg/dl (8.5-10.1); CREATININE 9.8 mg/dl (0.60-1.40); POTASSIUM 4.3 mmol/L (3.5-5.1)
[2016-04-21] MEDS: PREGABALIN 75 MG CAP PO SCH (09:17)
[2016-04-21 09:22] LABS: BETA-HYDROXYBUTYRATE 1.29 mg/dL (0.2-2.81)
--- NOTE | 2016-04-21 10:02 | Hospitalist Progress Note ---
Hospitalist Progress Note Date of Service Apr 21, 2016. Subjective Pt evaluation today including: conversation w/ patient, physical exam, chart review, lab review, review of studies, review of inpatient medication list Pain: None PO Intake: Good Voiding: no voiding problems The patient was seen and examined this morning. Pt reports his breathing has improved. He denies shortness of breath at rest or exertion. Resting tremor in his hands is still present but pt reports this is his baseline. He denies confusion. Pt has not other complaints today. Constitutional: No chills, No fever, No sweats, No weakness Eyes: No diplopia ENT: No nasal symptoms, No sore throat, No tinnitus Respiratory: + wheezing, No cough, No dyspnea at rest, No dyspnea on exertion, No shortness of breath, No sputum Cardiovascular: No chest pain, No palpitations Abdomen: No constipation, No diarrhea, No nausea, No pain, No vomiting Musculoskeletal: No calf pain, No joint pain, No muscle pain Neurologic: No balance problems, No numbness/tingling, No weakness Skin: No itch, No rash Objective Vital Signs Date Time Temp Pulse Resp B/P Pulse Ox O2 Delivery O2 Flow Rate FiO2 04/21/16 08:15 Room Air 04/21/16 07:21 36.3 88 18 95/58 94 Room Air 04/20/16 23:59 95 Room Air 2.0 04/20/16 15:29 Room Air 04/20/16 14:46 36.9 63 18 92/57 95 Room Air 04/20/16 13:33 88 18 84/47 97 Room Air 04/20/16 13:13 90 04/20/16 11:48 90 18 83/43 04/20/16 11:23 90 18 69/43 96 Room Air 04/20/16 10:18 87 18 76/50 97 Nasal Cannula 2.0 Physical Exam General Appearance: WD/WN, no apparent distress, + obese Eyes: PERRL, EOMI ENT: hearing grossly normal, pharynx normal Neck: no JVD Respiratory/Chest: chest non-tender, no respiratory distress, no accessory muscle use, + wheezing (few inspiratory and expiratory throughout.) Cardiovascular: regular rate, rhythm, no murmur Abdomen: normal bowel sounds, non tender, soft Extremities: non-tender, no pedal edema, no calf tenderness, + pertinent finding (chronic venous stasis changes. Good peripheral pulses. + LUE with AVF with palpable thrill.) Neurologic/Psychiatric: alert, oriented x 3 Skin: warm/dry, + pertinent finding (multiple tattoos. See extremity exam. ) Laboratory Results Last 24 Hours Test 04/20/16 10:44 04/20/16 10:48 04/20/16 11:22 04/20/16 16:39 Ammonia 40.0 umol/L White Blood Count 14.39 K/uL Red Blood Count 3.48 M/uL Hemoglobin 10.8 g/dL Hematocrit 32.2 % Mean Corpuscular Volume 92.5 fL Mean Corpuscular Hemoglobin 31.0 pg Mean Corpuscular Hemoglobin Concent 33.5 g/dl Platelet Count 75 K/uL Mean Platelet Volume 11.5 fL Neutrophils (%) (Auto) 90.3 % Lymphocytes (%) (Auto) 3.5 % Monocytes (%) (Auto) 5.7 % Eosinophils (%) (Auto) 0.1 % Basophils (%) (Auto) 0.1 % Neutrophils # (Auto) 13.00 K/uL Lymphocytes # (Auto) 0.50 K/uL Monocytes # (Auto) 0.82 K/uL Eosinophils # (Auto) 0.01 K/uL Basophils # (Auto) 0.02 K/uL RDW Standard Deviation 54.3 fL RDW Coefficient of Variation 16.2 % Immature Granulocyte % (Auto) 0.3 % Immature Granulocyte # (Auto) 0.04 K/uL Large Platelets 1+ Prothrombin Time 11.4 SECONDS Prothromb Time International Ratio 1.1 Activated Partial Thromboplast Time 33.0 SECONDS Partial Thromboplastin Ratio 1.3 Sodium Level 137 mmol/L Potassium Level 4.4 mmol/L Chloride Level 100 mmol/L Carbon Dioxide Level 25 mmol/L Anion Gap 12.0 mmol/L Blood Urea Nitrogen 46 mg/dl Creatinine 8.10 mg/dl Est Creatinine Clear Calc Drug Dose 12.8 ml/min Estimated GFR () 7.5 Estimated GFR (Non- 6.5 BUN/Creatinine Ratio 5.7 Random Glucose 235 mg/dl Calcium Level 7.3 mg/dl Total Bilirubin 1.2 mg/dl Direct Bilirubin 0.5 mg/dl Aspartate Amino Transf (AST/SGOT) 20 U/L Alanine Aminotransferase (ALT/SGPT) 12 U/L Alkaline Phosphatase 141 U/L Total Protein 5.5 gm/dl Albumin 1.9 gm/dl Bedside Lactic Acid Venous 2.30 mmol/L Bedside Glucose 285 mg/dl Test 04/20/16 19:56 04/20/16 20:00 04/21/16 07:35 04/21/16 07:53 Bedside Glucose 387 mg/dl 372 mg/dl 365 mg/dl White Blood Count 6.76 K/uL Red Blood Count 3.50 M/uL Hemoglobin 10.9 g/dL Hematocrit 32.4 % Mean Corpuscular Volume 92.6 fL Mean Corpuscular Hemoglobin 31.1 pg Mean Corpuscular Hemoglobin Concent 33.6 g/dl Platelet Count 80 K/uL Mean Platelet Volume 12.5 fL Neutrophils (%) (Auto) 89.9 % Lymphocytes (%) (Auto) 7.2 % Monocytes (%) (Auto) 2.8 % Eosinophils (%) (Auto) 0.0 % Basophils (%) (Auto) 0.0 % Neutrophils # (Auto) 6.07 K/uL Lymphocytes # (Auto) 0.49 K/uL Monocytes # (Auto) 0.19 K/uL Eosinophils # (Auto) 0.00 K/uL Basophils # (Auto) 0.00 K/uL RDW Standard Deviation 53.3 fL RDW Coefficient of Variation 16.0 % Immature Granulocyte % (Auto) 0.1 % Immature Granulocyte # (Auto) 0.01 K/uL Sodium Level 135 mmol/L Potassium Level 4.3 mmol/L Chloride Level 99 mmol/L Carbon Dioxide Level 17 mmol/L Anion Gap 19.0 mmol/L Blood Urea Nitrogen 65 mg/dl Creatinine 9.80 mg/dl Est Creatinine Clear Calc Drug Dose 10.6 ml/min Estimated GFR () 6.0 Estimated GFR (Non- 5.2 BUN/Creatinine Ratio 6.7 Random Glucose 386 mg/dl Calcium Level 7.9 mg/dl Ammonia 71.0 umol/L Beta-Hydroxybutyric Acid 1.29 mg/dL Assessment and Plan This is a 60 yo M with PMHx ESRD on hemodialysis, DM II, HTN, hypothyroidism, COPD, GERD, cirrhosis of liver presenting to the ED with shortness of breath which has worsened x 1 day. Shortness of Breath with PMHx of COPD - Cont duonebs Q4H and Q2H prn - CXR reviewed as above and without signs of pna or consolidation - Will check influenza - specimen not collected, await results - Saturating in mid 90s on RA. - Bcx drawn, will follow- will likely take one more day to grow out. - IV levaquin, continue for now since great improvement in sx - WBC trended down to 6K. Hepatic Encephalopathy - Ammonia =40, this is relatively low in comparison to other admission levels where it has been up in the 200s. - Follow with am labs - Mild asterixis on exam - Will continue lactulose PO TID. ESRD on hemodialysis - Nephrology consulted- normal HD scheduled for today and the pt has not gotten it yet. - M/W/F - Dr. Dowling plans for HD today because he did not need it yesterday. - Cont nephrocaps HTN - Takes midodrine 3x per week as an outpatient on dialysis days - Cont nadolol DM II - Continue Lantus 8 U QHS - ISS with accuchecks, ACHS Depression - Cont duloxetine Hypothyroidism - Cont levothyroxine DVT ppx: heparin, Teds, scds CODE STATUS: DNR Disposition: From home, will await blood cultures, stability of respiratory status
--- NOTE | 2016-04-21 10:27 | Nephrology Progress Note ---
Nephrology Progress Note Date of Service Apr 21, 2016. Chief Complaint ESRD Subjective No acute events overnight. No complaints this morning. Denies shortness of breath. No fevers or chills. No additional shaking. Chronic tremor noted. Review of Systems A complete review of systems was performed. Pertinent positives are noted above. All other systems are negative. Vital Signs Last 8 Hrs Date Time Temp Pulse Resp B/P Pulse Ox O2 Delivery O2 Flow Rate FiO2 04/21/16 08:15 Room Air 04/21/16 07:21 36.3 88 18 95/58 94 Room Air I & O 24-Hour Column 04/21/16 08:00 Intake Total 120 ml Balance 120 ml Last Recorded Weight Weight (Kilograms): 109.500 Physical Exam General Appearance: WD/WN, no apparent distress Head: normocephalic, atraumatic Eyes: normal inspection, sclerae normal ENT: normal ENT inspection, pharynx normal Neck: supple, no JVD Respiratory/Chest: lungs clear, no respiratory distress, no accessory muscle use Cardiovascular: regular rate, rhythm, no murmur Abdomen/GI: non tender, soft Extremities/Musculoskelatal: normal inspection, no pedal edema, + pertinent finding (AVF with thrill and bruit) Neurologic/Psych: alert, oriented x 3 Family History Cancer Diabetes mellitus Heart disease Social History Smoking Status: Current every day smoker Smokeless Tobacco Use: No Alcohol Use: none Drug Use: none Marital Status: , in relationship Housing Status: lives with significant other Occupation: disabled Laboratory Results Past 24 Hours 04/20/16 10:48 Red Blood Count 3.48, Mean Corpuscular Volume 92.5, Mean Corpuscular Hemoglobin 31.0, Mean Corpuscular Hemoglobin Concent 33.5, Mean Platelet Volume 11.5, Neutrophils (%) (Auto) 90.3, Lymphocytes (%) (Auto) 3.5, Monocytes (%) (Auto) 5.7, Eosinophils (%) (Auto) 0.1, Basophils (%) (Auto) 0.1, Neutrophils # (Auto) 13.00, Lymphocytes # (Auto) 0.50, Monocytes # (Auto) 0.82, Eosinophils # (Auto) 0.01, Basophils # (Auto) 0.02 04/21/16 07:53 Red Blood Count 3.50, Mean Corpuscular Volume 92.6, Mean Corpuscular Hemoglobin 31.1, Mean Corpuscular Hemoglobin Concent 33.6, Mean Platelet Volume 12.5, Neutrophils (%) (Auto) 89.9, Lymphocytes (%) (Auto) 7.2, Monocytes (%) (Auto) 2.8, Eosinophils (%) (Auto) 0.0, Basophils (%) (Auto) 0.0, Neutrophils # (Auto) 6.07, Lymphocytes # (Auto) 0.49, Monocytes # (Auto) 0.19, Eosinophils # (Auto) 0.00, Basophils # (Auto) 0.00 04/20/16 10:48 04/21/16 07:53 Test 04/20/16 10:44 04/20/16 10:48 04/20/16 11:22 04/20/16 16:39 Ammonia 40.0 umol/L (11-32) White Blood Count 14.39 K/uL (4.8-10.8) Red Blood Count 3.48 M/uL (4.7-6.1) Hemoglobin 10.8 g/dL (14.0-18.0) Hematocrit 32.2 % (42-52) Mean Corpuscular Volume 92.5 fL (80-100) Mean Corpuscular Hemoglobin 31.0 pg (25-34) Mean Corpuscular Hemoglobin Concent 33.5 g/dl (32-36) Platelet Count 75 K/uL (130-400) Mean Platelet Volume 11.5 fL (7.4-10.4) Neutrophils (%) (Auto) 90.3 % Lymphocytes (%) (Auto) 3.5 % Monocytes (%) (Auto) 5.7 % Eosinophils (%) (Auto) 0.1 % Basophils (%) (Auto) 0.1 % Neutrophils # (Auto) 13.00 K/uL (1.4-6.5) Lymphocytes # (Auto) 0.50 K/uL (1.2-3.4) Monocytes # (Auto) 0.82 K/uL (0.11-0.59) Eosinophils # (Auto) 0.01 K/uL (0-0.5) Basophils # (Auto) 0.02 K/uL (0-0.2) RDW Standard Deviation 54.3 fL (36.4-46.3) RDW Coefficient of Variation 16.2 % (11.5-14.5) Immature Granulocyte % (Auto) 0.3 % Immature Granulocyte # (Auto) 0.04 K/uL (0.00-0.02) Large Platelets 1+ Prothrombin Time 11.4 SECONDS (9.0-12.0) Prothromb Time International Ratio 1.1 (0.9-1.1) Activated Partial Thromboplast Time 33.0 SECONDS (21.0-31.0) Partial Thromboplastin Ratio 1.3 Anion Gap 12.0 mmol/L (3-11) Est Creatinine Clear Calc Drug Dose 12.8 ml/min Estimated GFR () 7.5 Estimated GFR (Non- 6.5 BUN/Creatinine Ratio 5.7 (10-20) Calcium Level 7.3 mg/dl (8.5-10.1) Total Bilirubin 1.2 mg/dl (0.2-1) Direct Bilirubin 0.5 mg/dl (0-0.2) Aspartate Amino Transf (AST/SGOT) 20 U/L (15-37) Alanine Aminotransferase (ALT/SGPT) 12 U/L (12-78) Alkaline Phosphatase 141 U/L (45-117) Total Protein 5.5 gm/dl (6.4-8.2) Albumin 1.9 gm/dl (3.4-5.0) Bedside Lactic Acid Venous 2.30 mmol/L (0.90-1.70) Bedside Glucose 285 mg/dl (70-99) Test 04/20/16 19:56 04/20/16 20:00 04/21/16 07:35 04/21/16 07:53 Bedside Glucose 387 mg/dl (70-99) 372 mg/dl (70-99) 365 mg/dl (70-99) White Blood Count 6.76 K/uL (4.8-10.8) Red Blood Count 3.50 M/uL (4.7-6.1) Hemoglobin 10.9 g/dL (14.0-18.0) Hematocrit 32.4 % (42-52) Mean Corpuscular Volume 92.6 fL (80-100) Mean Corpuscular Hemoglobin 31.1 pg (25-34) Mean Corpuscular Hemoglobin Concent 33.6 g/dl (32-36) Platelet Count 80 K/uL (130-400) Mean Platelet Volume 12.5 fL (7.4-10.4) Neutrophils (%) (Auto) 89.9 % Lymphocytes (%) (Auto) 7.2 % Monocytes (%) (Auto) 2.8 % Eosinophils (%) (Auto) 0.0 % Basophils (%) (Auto) 0.0 % Neutrophils # (Auto) 6.07 K/uL (1.4-6.5) Lymphocytes # (Auto) 0.49 K/uL (1.2-3.4) Monocytes # (Auto) 0.19 K/uL (0.11-0.59) Eosinophils # (Auto) 0.00 K/uL (0-0.5) Basophils # (Auto) 0.00 K/uL (0-0.2) RDW Standard Deviation 53.3 fL (36.4-46.3) RDW Coefficient of Variation 16.0 % (11.5-14.5) Immature Granulocyte % (Auto) 0.1 % Immature Granulocyte # (Auto) 0.01 K/uL (0.00-0.02) Anion Gap 19.0 mmol/L (3-11) Est Creatinine Clear Calc Drug Dose 10.6 ml/min Estimated GFR () 6.0 Estimated GFR (Non- 5.2 BUN/Creatinine Ratio 6.7 (10-20) Calcium Level 7.9 mg/dl (8.5-10.1) Ammonia 71.0 umol/L (11-32) Beta-Hydroxybutyric Acid 1.29 mg/dL (0.2-2.81) Allergies Coded Allergies: Cephalexin (Verified Allergy, Severe, ANAPHYLAXIS, 04/20/16) Acetaminophen (Verified Adverse Reaction, Mild, D/T LIVER, 04/20/16) Medications Current Inpatient Medications Medications (Trade) Dose Ordered Sig/Clarice Route Start Time Stop Time Status Last Admin Dose Admin Polyethylene (Miralax Powder Packet) 17 gm DAILY PRN PO 04/20/16 13:00 05/20/16 12:59 Ondansetron HCl (Zofran Inj) 4 mg Q6H PRN IV 04/20/16 12:45 05/20/16 12:44 Albuterol Sulfate (Ventolin 0.083% 2.5MG/3ML Neb) 2.5 mg Q4R PRN INH 04/20/16 12:45 05/20/16 12:44 Calcium Acetate (Phoslo Cap) 667 mg TIDM PO 04/20/16 17:00 05/20/16 17:59 04/21/16 07:49 667 MG Cholecalciferol (Vitamin D Tab) 1,000 inter.unit DAILY PO 04/21/16 09:00 05/21/16 08:59 04/21/16 07:49 1,000 INTER.UNIT Duloxetine HCl (Cymbalta Cap) 60 mg HS PO 04/20/16 21:00 05/20/16 20:59 04/20/16 21:02 60 MG Salmeterol Xinafoate/ Fluticasone (Advair Diskus 500/50 Inh) 1 puff BID INH 04/20/16 21:00 05/20/16 20:59 04/21/16 07:48 1 PUFF Lactulose (Chronulac Syrup) 60 gm TID PO 04/20/16 21:00 05/20/16 20:59 04/21/16 07:48 60 GM Levothyroxine Sodium (Synthroid Tab) 25 mcg DAILYBB PO 04/21/16 06:30 05/21/16 06:59 04/21/16 06:23 25 MCG Nadolol (Corgard Tab) 10 mg HS PO 04/20/16 21:00 05/20/16 20:59 04/20/16 21:03 10 MG Oxycodone HCl (Roxicodone Immediate Rel Tab) 5 mg Q4H PRN PO 04/20/16 12:45 05/04/16 12:44 04/21/16 07:49 5 MG Pregabalin (Lyrica Cap) 75 mg DAILY PO 04/21/16 09:00 05/21/16 08:59 04/21/16 09:17 75 MG Rifaximin (Xifaxan Tab) 550 mg BID PO 04/20/16 21:00 05/20/16 20:59 04/21/16 07:49 550 MG Vitamin B Complex/ Vit C/Folic Acid (Nephrocaps) 1 cap DAILY PO 04/21/16 09:00 05/21/16 08:59 04/21/16 07:49 1 CAP Pantoprazole Sodium (Protonix Tab) 40 mg BID PO 04/20/16 21:00 05/20/16 20:59 04/21/16 07:49 40 MG Insulin Aspart (novoLOG ASPART) SLIDING SCALE If C... ACHS SC 04/20/16 16:00 05/21/16 15:59 04/21/16 08:27 14 UNITS Glucose (Glucose Chew Tab) 4-8 Tablets 4 Tabl... UD PRN PO 04/20/16 12:45 05/20/16 12:44 Dextrose (Dextrose 50% 50ML Syringe) 25-50ML OF 50% DW IV FOR... UD PRN IV 04/20/16 12:45 05/20/16 12:44 Midodrine 10 mg 10 mg MoWeFr@0900 PO 04/22/16 09:00 05/22/16 08:59 Levofloxacin/Prmx (Levaquin / D5W/ Premixed D5W) 50 ml @ 100 mls/hr Q48H IV 04/22/16 12:00 04/28/16 14:14 Levofloxacin (Consult) 1 ea UD PRN N/A 04/20/16 14:45 05/20/16 14:44 Heparin Sodium (Porcine) (Heparin Sq 5000 Unit/0.5ml) 5,000 unit Q12 SQ 04/20/16 21:00 05/20/16 20:59 04/21/16 07:51 5,000 UNIT Insulin Glargine (Lantus Solostar Pen) 10 unit DAILY@2100 SC 04/21/16 21:00 05/21/16 20:59 Impression (1) End stage liver disease (2) Anemia Loyd is a 60-year-old male well known from multiple prior admissions. He was admitted with shortness of breath and shaking chills. Medical history notable for ESRD on HD MWF. He missed his scheduled dialysis treatment today. 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 Trimble, 4 hr Qb 350), mechanical fall resulting in rib and left acetabular fracture (June 2015), repeated hospitalization for narcotic overdose & hepatic encephalopathy. Recommendations END STAGE RENAL DISEASE: -- HD today -- Plan HD tomorrow to resume MWF schedule -- Monitor serial PRP ANEMIA: -- Chronic, stable -- No need for SUE at this time ID: -- Cultures pending SHORTNESS OF BREATH: -- Subjectively improved
[2016-04-21] MEDS ORDERED: INSULIN GLARGINE SOLOSTAR 100 UNITS/ML 3 ML PEN SC SCH (21:00)
[2016-04-21] MEDS: DULOXETINE HCL 60 MG CAP PO SCH (21:10)
[2016-04-21] MEDS: NADOLOL 40 MG TAB PO SCH (21:11)
[2016-04-22 00:15] VITALS: BP 91/62; PULSE 97; TEMP 36.4; O2SAT 93
[2016-04-22] MEDS: OXYCODONE HCL IR 5 MG TAB (IMMEDIATE RELEASE) PO PRN ×2 (02:06→06:31)
[2016-04-22 05:57] LABS: HEMATOCRIT 32.2 % (42-52); MEAN CELL VOLUME 92.5 fL (80-100); MEAN CORPUSCULAR HEMOGLOBIN 31.3 pg (25-34); MEAN CORPUSCULAR HGB CONC 33.9 g/dl (32-36); MEAN PLATELET VOLUME 12.4 fL (7.4-10.4); PLATELET COUNT 111 K/uL (130-400); RED BLOOD COUNT 3.48 M/uL (4.7-6.1)
[2016-04-22 06:22] LABS: BASO % 0.1 %; BASO ABS # 0.01 K/uL (0-0.2); COMPLETE YES; EOS % 0.1 %; IG% 0.3 %; LYMPH % 14.5 %; MONO % 10.9 %; NEUT % 74.1 %; POLYCHROMASIA 1+
[2016-04-22] MEDS: LEVOTHYROXINE 25 MCG TAB PO SCH (06:28)
[2016-04-22 06:41] LABS: BUN/CREATININE RATIO 5.4 (10-20); CALCIUM 7.6 mg/dl (8.5-10.1); CREATININE 6.3 mg/dl (0.60-1.40); POTASSIUM 3.3 mmol/L (3.5-5.1)
[2016-04-22 06:55] LABS: BETA-HYDROXYBUTYRATE 1.04 mg/dL (0.2-2.81)
[2016-04-22] MEDS: LACTULOSE SYRUP 10 GM/15 ML BTL 473 ML PO SCH (07:43)
[2016-04-22] MEDS: CHOLECALCIFEROL 1000 INTER.UNIT TAB PO SCH (07:43)
[2016-04-22] MEDS: NEPHROCAPS PO SCH (07:43)
[2016-04-22] MEDS: FLUTICASONE/SALMETEROL (ADVAIR) 500/50 INH 14 PUFF INH SCH (07:43)
[2016-04-22] MEDS: PANTOprazole SOD 40 MG TAB PO SCH (07:43)
[2016-04-22] MEDS: RIFAXIMIN TAB 550 MG TAB PO SCH (07:43)
[2016-04-22] MEDS: CALCIUM ACETATE 667MG GELCAP PO SCH ×2 (07:43→10:47)
[2016-04-22] MEDS: PREGABALIN 75 MG CAP PO SCH (07:44)
[2016-04-22] MEDS: HEPARIN SOD 5000 UNIT/0.5 ML CARP SQ SCH (07:45)
[2016-04-22] MEDS ORDERED: POTASSIUM CHLORIDE 10 MEQ TABCR PO STA (07:52)
[2016-04-22] MEDS ORDERED: HEPARIN SOD (PORCINE) 1000 UNIT/ML 10 ML VIAL IV SCH ×2 (08:00)
[2016-04-22 08:25] VITALS: BP 84/53; PULSE 79; TEMP 36.5; O2SAT 93
[2016-04-22] MEDS: INSULIN ASPART 100 UNITS/ML 3 ML PEN SC SCH (08:27)
[2016-04-22] MEDS ORDERED: LEVO1TAB35 PO (08:37)
--- NOTE | 2016-04-22 08:46 | Discharge Instructions ---
Discharge Instructions Admission Reason for Admission: Hypoxia Discharge Discharge Diagnosis / Problem: Hypoxia Discharge Goals Goal(s): Decrease discomfort, Improve function Activity Recommendations Activity Limitations: resume your previous activity Lifting Limitations: gradually increase as tolerated Exercise/Sports Limitations: gradually increase as tolerated Shower/Bathe: no limitations . Instructions / Follow-Up Instructions / Follow-Up You were admitted to [facility] with hypoxia and diagnosed with acute COPD exacerbation . During your stay here you were treated with intravenous antibiotics, breathing treatments and one dose of intravenous steroids which significantly improved your breathing. The antibiotic, levaquin was given for possible pneumonia. This was renally dosed for you. Imaging studies which were completed include CXR which was normal and did not show consolidations which would suggest pneumonia. Blood cultures were obtained upon admission and were NEGATIVE. Continue taking levaquin as directed: Take 1 levaquin 500 mg tablet by mouth on 04/24 and then the next dose on . This will complete a 7 day course of antibiotics for you. This was discussed with the pharmacy. Continue dialysis as scheduled on Wednesday, Wednesday and Wednesday. Continue taking your medications as above. Follow up with your Primary Care Provider within 1 week. Current Hospital Diet Patient's current hospital diet: Renal Diet Discharge Diet Recommended Diet: Renal Diet Procedures Procedures Performed: CXR 04/20/16 - Normal Pending Studies Studies pending at discharge: no Laboratory Results Last 24 Hours Test 04/21/16 11:33 04/21/16 16:42 04/21/16 20:59 04/22/16 05:15 Bedside Glucose 354 mg/dl 160 mg/dl 166 mg/dl White Blood Count 7.60 K/uL Red Blood Count 3.48 M/uL Hemoglobin 10.9 g/dL Hematocrit 32.2 % Mean Corpuscular Volume 92.5 fL Mean Corpuscular Hemoglobin 31.3 pg Mean Corpuscular Hemoglobin Concent 33.9 g/dl Platelet Count 111 K/uL Mean Platelet Volume 12.4 fL Neutrophils (%) (Auto) 74.1 % Lymphocytes (%) (Auto) 14.5 % Monocytes (%) (Auto) 10.9 % Eosinophils (%) (Auto) 0.1 % Basophils (%) (Auto) 0.1 % Neutrophils # (Auto) 5.63 K/uL Lymphocytes # (Auto) 1.10 K/uL Monocytes # (Auto) 0.83 K/uL Eosinophils # (Auto) 0.01 K/uL Basophils # (Auto) 0.01 K/uL RDW Standard Deviation 55.4 fL RDW Coefficient of Variation 16.6 % Immature Granulocyte % (Auto) 0.3 % Immature Granulocyte # (Auto) 0.02 K/uL Polychromasia 1+ Sodium Level 141 mmol/L Potassium Level 3.3 mmol/L Chloride Level 104 mmol/L Carbon Dioxide Level 23 mmol/L Anion Gap 14.0 mmol/L Blood Urea Nitrogen 33 mg/dl Creatinine 6.30 mg/dl Est Creatinine Clear Calc Drug Dose 16.5 ml/min Estimated GFR () 10.2 Estimated GFR (Non- 8.8 BUN/Creatinine Ratio 5.4 Random Glucose 430 mg/dl Calcium Level 7.6 mg/dl Beta-Hydroxybutyric Acid 1.04 mg/dL Test 04/22/16 06:55 Bedside Glucose 362 mg/dl Medical Emergencies . Who to Call and When: Medical Emergencies: If at any time you feel your situation is an emergency, please call 911 immediately. . Non-Emergent Contact Non-Emergency issues call your: Primary Care Provider Call Non-Emergent contact if: you have a fever, your pain is not controlled, wound has increased drainage, wound has increased redness . Past History Medical & Surgical History: (1) Hypoxia (2) COPD exacerbation (3) Hepatic encephalopathy (4) Diabetic peripheral neuropathy associated with type 2 diabetes mellitus (5) HISTORY OF TOBACCO USE (6) COPD (chronic obstructive pulmonary disease) . "Provider Documentation" section prepared by Petty Castro. VTE Core Measure Inpt VTE Proph given/why not?: SCD's
[2016-04-22] MEDS ORDERED: MIDODRINE 10 MG TAB PO SCH (09:00)
--- NOTE | 2016-04-22 10:23 | Discharge Summary ---
Discharge Summary Admission Date: Apr 20, 2016 at 12:50 Discharge Date: Apr 22, 2016 Discharge Disposition: Home Principal Diagnosis: Hypoxia Problems/Secondary Diagnoses: (1) ESRD (end stage renal disease) on dialysis Status: Chronic Immunizations: Have You Had Influenza Vaccine: Yes Influenza Vaccine Date: Dec 07, 2012 History of Tetanus Vaccine?: Unknown Tetanus Immunization Date: Nov 13, 2010 History of Pneumococcal: Yes Pneumococcal Date: Feb 11, 2012 History of Hepatitis B Vaccine: IN PROGRESS HAS HAD 2 SHOTS Hepatitis Immunization Date: Dec 07, 2012 Procedures: CHEST ONE VIEW PORTABLE CLINICAL HISTORY: Shortness of breath. Evaluate for pneumonia. COMPARISON STUDY: Chest radiograph March 25, 2016. FINDINGS: The patient is rotated. There is no pneumothorax. Blunting of the left costophrenic angle is unchanged and likely due to epicardial fat pad. There is no evidence of pulmonary edema. There is no pneumothorax. Minimal hazy left basilar opacity is present. There are healed left rib fractures. IMPRESSION: 1. Rotated study. Mild left basilar opacity. Atelectasis is favored over pneumonia. 2. Equivocal small left pleural effusion which may reflect epicardial fat pad. Electronically signed by: Jordan Martinez M.D. 04/20/2016 9:43 AM Dictated Date/Time: 04/20/2016 9:41 AM CHEST 2 VIEWS ROUTINE CLINICAL HISTORY: Shortness of breath. Evaluate for pneumonia. COMPARISON STUDY: Chest radiograph March 25, 2016 and April 20, 2016. FINDINGS: Lung volumes are normal. Mild left lower lung opacity likely reflects atelectasis and prominent epicardial fat pad. There is pulmonary vascular congestion. Healed left rib fractures are noted. Cardiomediastinal silhouette is stable allowing for mild patient rotation. IMPRESSION: 1. No consolidation to suggest pneumonia. 2. Linear left lower lung opacity suggestive of atelectasis. 3. Pulmonary vascular congestion without overt pulmonary edema. Electronically signed by: Jordan Martinez M.D. 04/20/2016 12:09 PM Dictated Date/Time: 04/20/2016 12:08 PM BILATERAL LOWER EXTREMITY VENOUS DOPPLER CLINICAL HISTORY: Shortness of breath. COMPARISON STUDY: Bilateral lower extremity venous Doppler June 30, 2015 and left lower extremity venous Doppler October 29, 2015. TECHNIQUE: Sonography of the deep venous system of the bilateral lower extremities was performed. Compression and augmentation were evaluated. FINDINGS: This exam was compromised by suboptimal penetration. The common femoral, superficial femoral and popliteal veins were compressible. Augmentation was normal. Flow was shown within the deep calf vessels. Note was made of a small complex left popliteal fossa fluid collection that measured 4.8 x 1.9 x 0.7 cm. This may contain calcifications. IMPRESSION: 1. No evidence of deep venous thrombus within the bilateral lower extremities. 2. Suspected small complex left popliteal cyst which may contain calcified bodies. Electronically signed by: Jordan Martinez M.D. 04/20/2016 2:13 PM Consultations: Nephrology Medication Reconciliation New Medications: Levofloxacin (Levaquin) 750 Mg Tab 500 MG PO UD for 2 Days, #2 TAB Take 1 tablet on 04/24, then take the next dose on 04/26. Continued Medications: Albuterol Sulf (Albuterol Sulfate) 2.5 Mg/0.5 Ml Nebu 5 MG INH UD LIST STATES 5MG/ML DIRECTED Calcium Acetate (Phoslo 667 Mg) 667 Mg Cap 667 MG PO TIDM Cholecalciferol (Vitamin D3) 1,000 Inter.unit Tab 1000 INTER.UNIT PO DAILY Duloxetine HCl (Cymbalta) 60 Mg Cap 60 MG PO HS Fluticasone Prop/Salmeterol (Advair Diskus 500/50 60 Dose) 1 Ea Aerp 1 PUFF INH BID, INHALER Insulin Aspart (Novolog Flexpen) Unknown Strength Inj 1 DOSE SQ AC Insulin Glargine (Lantus Solostar Pen) 100 Unit/ Inj 8 UNITS SC DAILY@2100 Lactulose (Constulose) 10 Gm/15 Ml Mena 90 ML PO TID Levothyroxine Sodium (Synthroid) 25 Mcg Tab 25 MG PO DAILY Midodrine Hcl (Midodrine Hcl) 10 Mg Tab 10 MG PO 3XWK BEFORE DIALYSIS Nadolol (Corgard) 20 Mg Tab 10 MG PO HS, TAB Omeprazole (Prilosec) 20 Mg Cap 20 MG PO BID Oxycodone Ir (Roxicodone Ir) 5 Mg Tab 5 MG PO Q4H PRN for Pain Pregabalin (Lyrica) 75 Mg Cap 75 MG PO DAILY Rifaximin (Xifaxan) 550 Mg Tab 550 MG PO BID, TAB Vitamin B Cmplx/Vitc/Folic Ac (Nephrocaps) Cap 1 CAP PO DAILY, CAP Discharge Exam The patient was seen and examined this morning. Pt reports doing well overnight. Pt has mild cough this morning but improved with being up and moving around. He denies fever, chills, sweats, cp, sob, or pain. He feels back to baseline. Review of Systems: Constitutional: No chills, No fever, No sweats ENT: No sore throat, No tinnitus, No unusual epistaxis Respiratory: + cough, No dyspnea at rest, No dyspnea on exertion, No shortness of breath, No sputum, No wheezing Cardiovascular: No chest pain, No palpitations Abdomen: No constipation, No diarrhea, No nausea, No pain, No vomiting Musculoskeletal: No calf pain, No joint pain, No swelling Genitourinary - Male: No dysuria, No hematuria Neurologic: + numbness/tingling (diabetic neuropathy at baseline), No weakness Integumentary: No rash Physical Exam: General Appearance: WD/WN, no apparent distress, + obese Eyes: PERRL, EOMI ENT: hearing grossly normal, pharynx normal Neck: no JVD Respiratory/Chest: lungs clear, normal breath sounds, no respiratory distress, no accessory muscle use Cardiovascular: regular rate, rhythm, normal peripheral pulses Abdomen / GI: non tender, soft, no organomegaly Extremities: + pertinent finding (Chronic venous stasis changes BLE, no edema or erythema. + AVF in LUE antecubital region with palpable thrill. ) Neurologic/Psychiatric: alert, oriented x 3 Skin: warm/dry Hospital Course H&P per Petty Castro PA-C Source: patient, family (sister, Muna) This is a 60 yo M with PMHx of ESRD on hemodialysis, DM II, HTN, hypothyroidism , COPD, GERD, cirrhosis of liver presenting to the ED with shortness of breath which has worsened x 1 day. He is accompanied by his sister, Antoine, who helps supply some of the history. Pt reports that last night when he was ready to go to sleep started to feel short of breath. His cough has worsened over the past few days as noted by his sister, but the patient himself cannot admit to this. He does admit to subjective fevers and chills last night. Temperature was not taken at home. He is still smoking 2-3 cigarettes daily and reports that this has not changed. His called the ambulance for him this morning because of worsening shortness of breath. Pulse ox was 88% on room air recorded by EMS. Since being in the ED he has received 3 albuterol nebulizer treatments. He is saturating in the mid 90s on room air. He denies any shortness of breath at this time. Afebrile, CXR is without infiltrates or consolidations.This is a 60 yo M with PMHx ESRD on hemodialysis, DM II, HTN, hypothyroidism, COPD, GERD, cirrhosis of liver presenting to the ED with shortness of breath which has worsened x 1 day. Date Time Temp Pulse Resp B/P Pulse Ox O2 Delivery O2 Flow Rate FiO2 04/20/16 13:33 88 18 84/47 97 Room Air 04/20/16 13:13 90 04/20/16 11:48 90 18 83/43 04/20/16 11:23 90 18 69/43 96 Room Air 04/20/16 10:18 87 18 76/50 97 Nasal Cannula 2.0 04/20/16 09:43 Nasal Cannula 2.0 04/20/16 09:09 97 04/20/16 09:04 95 Room Air 04/20/16 09:02 36.9 96 20 83/60 95 Room Air 04/20/16 09:02 95 Room Air General Appearance: no apparent distress, + obese, + pertinent finding ( chronically ill) Head: normocephalic, atraumatic Eyes: PERRL, EOMI ENT: hearing grossly normal, pharynx normal Neck: no JVD Respiratory/Chest: chest non-tender, no respiratory distress, no accessory muscle use, + pertinent finding (on room air, faintly diminished breath sounds at bilateral bases. + expiratory wheeze in the RLL. ) Cardiovascular: regular rate, rhythm, normal peripheral pulses, + pertinent finding (becomes tachycardic when asked to lean forward for pulmonary exam but quickly resolves) Abdomen/GI: normal bowel sounds, non tender, soft Back: normal inspection, no CVA tenderness Extremities/Musculoskelatal: no calf tenderness, no pedal edema, + pertinent finding (Chronic venous stasis changes of BLE. LUE with AVF with palpable thrill in antecubital region. ) Neurologic/Psych: alert, normal mood/affect, oriented x 3 Skin: warm/dry Hospital Course: Shortness of Breath with PMHx of COPD - Hypoxia likely secondary to acute copd exacerbation with improvement in symptoms with IV steroids and duoneb treatments. - IV levaquin, renally dosed, will discharge on oral to complete a 7 day course for caution - Cont duonebs Q4H and Q2H prn - CXR reviewed as above and without signs of pna or consolidation - Saturating in mid-high 90s on RA. - Bcx NEGATIVE. - Encourage smoking cessation. Pt was offered a nicotine patch however he declined. - WBC trended downward, stable. Hepatic Encephalopathy - Ammonia =40, this is relatively low in comparison to other admission levels where it has been up in the 200s. - Stable - Mild asterixis on exam - Will continue lactulose PO TID. ESRD on hemodialysis - Nephrology consulted- recieved dialysis yesterday per Dr. Dowling. can resume schedule on Wednesday. - M/W/F is normal schedule - Cont nephrocaps HTN - Takes midodrine 3x per week as an outpatient on dialysis days - Cont nadolol DM II - Continue Lantus 8 U QHS - ISS with accuchecks, ACHS - Glucoses elevated due to high dose intravenous steroids. Resume normal outpatient regimen upon discharge. Depression - Cont duloxetine Hypothyroidism - Cont levothyroxine DVT ppx: heparin, Teds, scds CODE STATUS: DNR Disposition: From home, dc today Total Time Spent: Greater than 30 minutes This includes examination of the patient, discharge planning, medication reconciliation, and communication with other providers. Discharge Instructions Please refer to the electronic Patient Visit Report (Discharge Instructions) for additional information. Follow-Up Follow up with your Primary Care Provider within 1 week. Additional Copies To Alix Garza MD
--- NOTE | 2016-04-22 10:25 | Nephrology Progress Note ---
Nephrology Progress Note Date of Service Apr 22, 2016. Chief Complaint ESRD Subjective No acute events overnight. No complaints this morning. Refused dialysis today. Blood pressure and volume status acceptable. Electrolytes appropriate. Tolerated HD yesterday, 3.5 hrs with net UF 1 kg. States that he is being discharged home today. Review of Systems A complete review of systems was performed. Pertinent positives are noted above. All other systems are negative. Vital Signs Last 8 Hrs Date Time Temp Pulse Resp B/P Pulse Ox O2 Delivery O2 Flow Rate FiO2 04/22/16 08:25 36.5 79 20 84/53 93 Room Air 04/22/16 08:15 Room Air I & O 24-Hour Column 04/22/16 08:00 Intake Total 508 ml Output Total 1079 ml Balance -571 ml Last Recorded Weight Weight (Kilograms): 110.000 Physical Exam General Appearance: WD/WN, no apparent distress Head: normocephalic, atraumatic Eyes: normal inspection, sclerae normal ENT: normal ENT inspection, pharynx normal Neck: supple, no JVD Respiratory/Chest: lungs clear, no respiratory distress, no accessory muscle use Cardiovascular: regular rate, rhythm, no gallop, no murmur Back: normal inspection Abdomen/GI: non tender, soft Extremities/Musculoskelatal: normal inspection, + pedal edema, + pertinent finding (AVF with thrill and bruit, chronic stasis changes of the lower extremities noted) Neurologic/Psych: alert, normal mood/affect, oriented x 3 Family History Cancer Diabetes mellitus Heart disease Social History Smoking Status: Current every day smoker Smokeless Tobacco Use: No Alcohol Use: none Drug Use: none Marital Status: , in relationship Housing Status: lives with significant other Occupation: disabled Laboratory Results Past 24 Hours 04/22/16 05:15 Red Blood Count 3.48, Mean Corpuscular Volume 92.5, Mean Corpuscular Hemoglobin 31.3, Mean Corpuscular Hemoglobin Concent 33.9, Mean Platelet Volume 12.4, Neutrophils (%) (Auto) 74.1, Lymphocytes (%) (Auto) 14.5, Monocytes (%) (Auto) 10.9, Eosinophils (%) (Auto) 0.1, Basophils (%) (Auto) 0.1, Neutrophils # (Auto ) 5.63, Lymphocytes # (Auto) 1.10, Monocytes # (Auto) 0.83, Eosinophils # (Auto ) 0.01, Basophils # (Auto) 0.01 04/22/16 05:15 Test 04/21/16 11:33 04/21/16 16:42 04/21/16 20:59 04/22/16 05:15 Bedside Glucose 354 mg/dl (70-99) 160 mg/dl (70-99) 166 mg/dl (70-99) White Blood Count 7.60 K/uL (4.8-10.8) Red Blood Count 3.48 M/uL (4.7-6.1) Hemoglobin 10.9 g/dL (14.0-18.0) Hematocrit 32.2 % (42-52) Mean Corpuscular Volume 92.5 fL (80-100) Mean Corpuscular Hemoglobin 31.3 pg (25-34) Mean Corpuscular Hemoglobin Concent 33.9 g/dl (32-36) Platelet Count 111 K/uL (130-400) Mean Platelet Volume 12.4 fL (7.4-10.4) Neutrophils (%) (Auto) 74.1 % Lymphocytes (%) (Auto) 14.5 % Monocytes (%) (Auto) 10.9 % Eosinophils (%) (Auto) 0.1 % Basophils (%) (Auto) 0.1 % Neutrophils # (Auto) 5.63 K/uL (1.4-6.5) Lymphocytes # (Auto) 1.10 K/uL (1.2-3.4) Monocytes # (Auto) 0.83 K/uL (0.11-0.59) Eosinophils # (Auto) 0.01 K/uL (0-0.5) Basophils # (Auto) 0.01 K/uL (0-0.2) RDW Standard Deviation 55.4 fL (36.4-46.3) RDW Coefficient of Variation 16.6 % (11.5-14.5) Immature Granulocyte % (Auto) 0.3 % Immature Granulocyte # (Auto) 0.02 K/uL (0.00-0.02) Polychromasia 1+ Anion Gap 14.0 mmol/L (3-11) Est Creatinine Clear Calc Drug Dose 16.5 ml/min Estimated GFR () 10.2 Estimated GFR (Non- 8.8 BUN/Creatinine Ratio 5.4 (10-20) Calcium Level 7.6 mg/dl (8.5-10.1) Beta-Hydroxybutyric Acid 1.04 mg/dL (0.2-2.81) Test 04/22/16 06:55 Bedside Glucose 362 mg/dl (70-99) Allergies Coded Allergies: Cephalexin (Verified Allergy, Severe, ANAPHYLAXIS, 04/20/16) Acetaminophen (Verified Adverse Reaction, Mild, D/T LIVER, 04/20/16) Medications Current Inpatient Medications Medications (Trade) Dose Ordered Sig/Clarice Route Start Time Stop Time Status Last Admin Dose Admin Polyethylene (Miralax Powder Packet) 17 gm DAILY PRN PO 04/20/16 13:00 05/20/16 12:59 Ondansetron HCl (Zofran Inj) 4 mg Q6H PRN IV 04/20/16 12:45 05/20/16 12:44 Albuterol Sulfate (Ventolin 0.083% 2.5MG/3ML Neb) 2.5 mg Q4R PRN INH 04/20/16 12:45 05/20/16 12:44 Calcium Acetate (Phoslo Cap) 667 mg TIDM PO 04/20/16 17:00 05/20/16 17:59 04/22/16 07:43 667 MG Cholecalciferol (Vitamin D Tab) 1,000 inter.unit DAILY PO 04/21/16 09:00 05/21/16 08:59 04/22/16 07:43 1,000 INTER.UNIT Duloxetine HCl (Cymbalta Cap) 60 mg HS PO 04/20/16 21:00 05/20/16 20:59 04/21/16 21:10 60 MG Salmeterol Xinafoate/ Fluticasone (Advair Diskus 500/50 Inh) 1 puff BID INH 04/20/16 21:00 05/20/16 20:59 04/22/16 07:43 1 PUFF Lactulose (Chronulac Syrup) 60 gm TID PO 04/20/16 21:00 05/20/16 20:59 04/22/16 07:43 60 GM Levothyroxine Sodium (Synthroid Tab) 25 mcg DAILYBB PO 04/21/16 06:30 05/21/16 06:59 04/22/16 06:28 25 MCG Nadolol (Corgard Tab) 10 mg HS PO 04/20/16 21:00 05/20/16 20:59 04/21/16 21:11 10 MG Oxycodone HCl (Roxicodone Immediate Rel Tab) 5 mg Q4H PRN PO 04/20/16 12:45 05/04/16 12:44 04/22/16 06:31 5 MG Pregabalin (Lyrica Cap) 75 mg DAILY PO 04/21/16 09:00 05/21/16 08:59 04/22/16 07:44 75 MG Rifaximin (Xifaxan Tab) 550 mg BID PO 04/20/16 21:00 05/20/16 20:59 04/22/16 07:43 550 MG Vitamin B Complex/ Vit C/Folic Acid (Nephrocaps) 1 cap DAILY PO 04/21/16 09:00 05/21/16 08:59 04/22/16 07:43 1 CAP Pantoprazole Sodium (Protonix Tab) 40 mg BID PO 04/20/16 21:00 05/20/16 20:59 04/22/16 07:43 40 MG Insulin Aspart (novoLOG ASPART) SLIDING SCALE If C... ACHS SC 04/20/16 16:00 05/21/16 15:59 04/22/16 08:27 18 UNITS Glucose (Glucose Chew Tab) 4-8 Tablets 4 Tabl... UD PRN PO 04/20/16 12:45 05/20/16 12:44 Dextrose (Dextrose 50% 50ML Syringe) 25-50ML OF 50% DW IV FOR... UD PRN IV 04/20/16 12:45 05/20/16 12:44 Midodrine 10 mg 10 mg MoWeFr@0900 PO 04/22/16 09:00 05/22/16 08:59 04/22/16 07:43 10 MG Levofloxacin/Prmx (Levaquin / D5W/ Premixed D5W) 50 ml @ 100 mls/hr Q48H IV 04/22/16 12:00 04/28/16 14:14 Levofloxacin (Consult) 1 ea UD PRN N/A 04/20/16 14:45 05/20/16 14:44 Heparin Sodium (Porcine) (Heparin Sq 5000 Unit/0.5ml) 5,000 unit Q12 SQ 04/20/16 21:00 05/20/16 20:59 04/22/16 07:45 5,000 UNIT Insulin Glargine (Lantus Solostar Pen) 12 unit DAILY@2100 SC 04/22/16 21:00 05/22/16 20:59 Heparin Sodium (Porcine) (Heparin Iv Bolus) 1,000 unit TODAY@0800 IV 04/22/16 08:00 04/22/16 23:59 Heparin Sodium (Porcine) (Heparin Iv Bolus) 1,000 unit TODAY@0800,0900,1000 IV 04/22/16 08:00 04/22/16 23:59 Impression (1) End stage liver disease (2) Anemia Loyd is a 60-year-old male well known from multiple prior admissions. He was admitted with shortness of breath and shaking chills. Medical history notable for ESRD on HD MWF. He missed his scheduled dialysis treatment today. 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 Trimble, 4 hr Qb 350), mechanical fall resulting in rib and left acetabular fracture (June 2015), repeated hospitalization for narcotic overdose & hepatic encephalopathy. Recommendations END STAGE RENAL DISEASE: -- HD MWF (treatment yesterday due to missed treatment Wednesday). Patient refused dialysis today -- Blood pressure and volume status appropriate -- Electrolytes acceptable -- Resume outpatient MWF schedule at discharge ANEMIA: -- Chronic, stable COPD EXACERBATION: -- Clinically improved -- Anticipated discharge today
[2016-04-22 11:50] VITALS: BP 84/53; PULSE 79; TEMP 36.5; O2SAT 93
[2016-04-22] MEDS ORDERED: LEVOFLOXACIN / D5W 250 MG in PREMIXED IN D5W 50 ML IV SCH (12:00)
[2016-04-22] MEDS ORDERED: INSULIN GLARGINE SOLOSTAR 100 UNITS/ML 3 ML PEN SC SCH (21:00)
== END 2016-04-22 12:40 | disposition home health service (06) | DRG 190 ==
LOC: ENRESERVTM → ENRESERVDT → EDBD 08:54 → C.EDA 08:55 → C.MED 12:50
PROVIDERS: ADMIT Hospitalist; ATTEND Hospitalist
DX: J44.1 Chronic obstructive pulmonary disease with (acute) exacerbation (principal); N18.6 End stage renal disease; I12.0 Hypertensive chronic kidney disease with stage 5 chronic kidney disease or end stage renal disease; R09.02 Hypoxemia; K72.90 Hepatic failure, unspecified without coma; E11.65 Type 2 diabetes mellitus with hyperglycemia; T38.0X5A Adverse effect of glucocorticoids and synthetic analogues, initial encounter; L89.152 Pressure ulcer of sacral region, stage 2; D64.9 Anemia, unspecified; K70.31 Alcoholic cirrhosis of liver with ascites; E11.22 Type 2 diabetes mellitus with diabetic chronic kidney disease; E03.9 Hypothyroidism, unspecified; K21.9 Gastro-esophageal reflux disease without esophagitis; F32.9 Major depressive disorder, single episode, unspecified; F17.210 Nicotine dependence, cigarettes, uncomplicated; E66.9 Obesity, unspecified; Z68.31 Body mass index [BMI] 31.0-31.9, adult; Z66 Do not resuscitate; Z76.82 Awaiting organ transplant status; Z99.2 Dependence on renal dialysis; Z86.19 Personal history of other infectious and parasitic diseases; Z79.4 Long term (current) use of insulin; Z79.51 Long term (current) use of inhaled steroids; Z79.891 Long term (current) use of opiate analgesic; Z79.899 Other long term (current) drug therapy

== ENCOUNTER 2016-05-04 15:15 | Inpatient (IN) | payer OTHER ==
[~2016-05-04] VITALS: Ht 188 cm; Wt 107.4 kg
[2016-05-04] MEDS ORDERED: INSU1INJ31 SQ (16:06)
[2016-05-04 17:19] LABS: PARTIAL THROMBOPLASTIN RATIO 1.2; PROTHROMBIN TIME (PATIENT) 10.5 SECONDS (9.0-12.0)
--- NOTE | 2016-05-04 17:26 | DIAGNOSTIC IMAGING REPORT ---
CT HEAD WITHOUT CONTRAST (CT) CLINICAL HISTORY: Change in mental status. COMPARISON STUDY: 03/25/2016 TECHNIQUE: Axial CT of the brain is performed from the vertex to the skull base. IV contrast was not administered for this examination. CT DOSE: 687.98 mGy.cm FINDINGS: No intra or extra-axial mass lesions are visualized. There is no CT evidence of acute cortical infarction. There is no evidence of midline shift. There is no acute hemorrhage. No calvarial fractures are visualized. There is no evidence of pathologic ventricular dilatation. There is no evidence of acute sinusitis IMPRESSION: Normal noncontrast head CT for age. Electronically signed by: Griffin Colon M.D. 05/04/2016 5:25 PM Dictated Date/Time: 05/04/2016 5:24 PM
[2016-05-04 17:31] LABS: BASO % 0.3 %; BASO ABS # 0.03 K/uL (0-0.2); COMPLETE YES; EOS % 2.2 %; HEMATOCRIT 36.5 % (42-52); IG% 0.2 %; LYMPH % 15.5 %; LYMPH ABS # 1.34 K/uL (1.2-3.4); MEAN CELL VOLUME 91.5 fL (80-100); MEAN CORPUSCULAR HEMOGLOBIN 30.6 pg (25-34); MEAN CORPUSCULAR HGB CONC 33.4 g/dl (32-36); MEAN PLATELET VOLUME 12.5 fL (7.4-10.4); MONO % 8.1 %; NEUT % 73.7 %; PLATELET COUNT 91 K/uL (130-400); RED BLOOD COUNT 3.99 M/uL (4.7-6.1); WHITE BLOOD COUNT 8.64 K/uL (4.8-10.8)
[2016-05-04 17:34] LABS: BUN/CREATININE RATIO 3.6 (10-20); CREATININE 3.5 mg/dl (0.60-1.40); POTASSIUM 3.6 mmol/L (3.5-5.1)
--- NOTE | 2016-05-04 18:11 | DIAGNOSTIC IMAGING REPORT ---
CHEST 2 VIEWS ROUTINE CLINICAL HISTORY: Change in mental status. Suspected pneumonia. COMPARISON STUDY: 04/20/2016 FINDINGS: The cardiac and mediastinal contours remain stable. There are left basilar opacities, likely atelectatic although an inflammatory process could appear similar. These remain unchanged. There is no overt failure. There are no significant pleural effusions. Old rib deformities are evident.[ IMPRESSION: Stable left basilar opacities, statistically atelectatic Electronically signed by: Griffin Colon M.D. 05/04/2016 6:10 PM Dictated Date/Time: 05/04/2016 6:09 PM
[2016-05-04] MEDS ORDERED: VANCOMYCIN INJ 1,000 MG in SODIUM CHLORIDE 0.9% 250ML 250 ML IV STA (18:22)
[2016-05-04] MEDS ORDERED: AZTREONAM IV 1,000 MG in DEXTROSE 5% 100ML IV STA (18:52)
[2016-05-04] MEDS ORDERED: VANCOMYCIN INJ 1,600 MG in SODIUM CHLORIDE 0.9% 500ML 500 ML IV STA (18:54)
[2016-05-04] MEDS ORDERED: AZTREONAM CONSULT ACTIVE PRN ×2 (19:15)
[2016-05-04] MEDS ORDERED: VANCOMYCIN CONSULT ACTIVE PRN (19:15)
--- NOTE | 2016-05-04 19:40 | Medical Student: [facility] ---
Med Student History & Physical Date & Time of Service: May 04, 2016 at 19:23 Chief Complaint: AMS Primary Care Physician: Alix Garza M.D. History of Present Illness Source: patient, hospital records, EMS 60 y/o male with a history of end stage renal disease and cirrhosis was sent to the emergency department following the completion of his dialysis treatment today for altered mental status. Per EMS, the patients blood glucose was 139 en route. The patient states that he did not feel bad over the weekend and was in his normal state of health. He currently denies symptoms of headache, dizziness , chest pain, abdominal pain, fever/chills, vomiting, cough, congestion, constipation, or diarrhea. He states that he is feeling short of breath, but that this is an ongoing issue with his COPD. The history is limited due to the patient's altered mental status. Past Medical/Surgical History Medical Problems: (1) Acute kidney injury Status: Acute (2) Acute renal failure Status: Acute (3) Anemia Status: Acute (4) CHF (congestive heart failure) Status: Acute (5) Chronic kidney disease Status: Acute (6) Confusion Status: Acute (7) COPD exacerbation Status: Acute (8) Drowsiness Status: Acute (9) Elevated bilirubin Status: Acute (10) End stage renal disease Status: Acute (11) Fall Status: Acute (12) Headache Status: Acute (13) Hyperammonemia Status: Acute (14) Hyperammonemia Status: Acute (15) Hyperammonemia Status: Acute (16) Hyperammonemia Status: Acute (17) Hypotension Status: Acute (18) Increased ammonia level Status: Acute (19) Increased ammonia level Status: Acute (20) Increased ammonia level Status: Acute (21) Left acetabular fracture Status: Acute (22) Metabolic encephalopathy Status: Acute (23) Opacity of lung on imaging study Status: Acute (24) Opioid overdose Status: Acute (25) Pleural effusion Status: Acute (26) Pneumonia Status: Acute (27) Renal failure Status: Acute (28) Sepsis Status: Acute (29) Severe sepsis with acute organ dysfunction Status: Acute (30) Stroke Status: Acute (31) Urinary tract infection Status: Acute Family History Father: cancer Mother: heart disease, diabetes Grandfather: heart disease, diabetes Grandmother: heart disease, diabetes Social History Smoking Status: Current Every Day Smoker Alcohol Use: none Drug Use: none Marital Status: , in relationship Housing status: lives with significant other Occupational Status: disabled Immunizations History of Influenza Vaccine: Yes Influenza Vaccine Date: Dec 07, 2012 History of Tetanus Vaccine?: Unknown Tetanus Immunization Date: Nov 13, 2010 History of Pneumococcal: Yes Pneumococcal Date: Feb 11, 2012 History of Hepatitis B Vaccine: IN PROGRESS HAS HAD 2 SHOTS Hepatitis Immunization Date: Dec 07, 2012 Allergies Coded Allergies: Cephalexin (Verified Allergy, Severe, ANAPHYLAXIS, 05/04/16) Acetaminophen (Verified Adverse Reaction, Mild, D/T LIVER, 05/04/16) Medications Albuterol Sulf (Albuterol Sulfate), 5 MG INH UD Calcium Acetate (Phoslo 667 Mg), 667 MG PO TIDM Cholecalciferol (Vitamin D3), 1,000 INTER.UNIT PO DAILY Duloxetine HCl (Cymbalta), 60 MG PO HS Fluticasone Prop/Salmeterol (Advair Diskus 500/50 60 Dose), 1 PUFF INH BID Insulin Aspart (Novolog Flexpen), 1 DOSE SQ AC Insulin Glargine (Lantus Solostar Pen), 8 UNITS SC DAILY@2100 Insulin Lispro (Human) (Humalog Kwikpen), 1 DOSE SQ DIRECTED Lactulose (Constulose), 90 ML PO TID Levothyroxine Sodium (Synthroid), 25 MG PO DAILY Midodrine Hcl (Midodrine Hcl), 10 MG PO 3XWK Nadolol (Corgard), 10 MG PO HS Omeprazole (Prilosec), 20 MG PO BID Oxycodone Ir (Roxicodone Ir), 5 MG PO Q4H PRN for Pain Pregabalin (Lyrica), 75 MG PO DAILY Rifaximin (Xifaxan), 550 MG PO BID Vitamin B Cmplx/Vitc/Folic Ac (Nephrocaps), 1 CAP PO DAILY Review of Systems Constitutional: No chills, No fever, No sweats Eyes: No discharge, No redness ENT: No hearing loss, No sore throat Respiratory: + dyspnea at rest, + shortness of breath, No cough, No sputum Cardiovascular: No chest pain, No claudication, No edema Abdomen: No constipation, No diarrhea, No nausea, No pain, No vomiting Musculoskeletal: No joint pain, No muscle pain Genitourinary - Male: No urinary frequency, No urinary urgency Neurologic: + memory loss, No paralysis Integumentary: No itch, No rash Physical Exam Vital Signs (24 Hours) Date Time Temp Pulse Resp B/P Pulse Ox O2 Delivery O2 Flow Rate FiO2 05/04/16 19:16 80 15 103/72 94 Room Air 05/04/16 17:31 80 16 95/59 98 Room Air 05/04/16 15:26 99 Room Air 05/04/16 15:24 36.8 89 16 100/61 97 Room Air General Appearance: WD/WN, no apparent distress Head: normocephalic, atraumatic Eyes: PERRL, EOMI, sclerae normal ENT: hearing grossly normal Neck: supple, no adenopathy Respiratory/Chest: chest non-tender, no respiratory distress, + wheezing ( scattered) Cardiovascular: regular rate, rhythm, no edema, no gallop, no murmur Abdomen/GI: normal bowel sounds, non tender, soft, no organomegaly, no pulsatile mass Back: normal inspection Extremities/Musculoskelatal: no calf tenderness, no pedal edema Neurologic/Psych: equalizing saw operator II-XII nml as tested, no motor/sensory deficits, + pertinent finding (Oriented to person and place, and year, but not month or day. Slow to respond to questions, often needs prompted again, Asterixis present ) Skin: no rash, + pertinent finding (evidence of stasis dermatitis bilateral lower extremities) Lymphatic: no adenopathy Diagnostics Laboratory Results Results Past 24 Hours Test 05/04/16 15:53 05/04/16 17:01 Range/Units Bedside Glucose 100 70-99 mg/dl White Blood Count 8.64 4.8-10.8 K/uL Red Blood Count 3.99 4.7-6.1 M/uL Hemoglobin 12.2 14.0-18.0 g/dL Hematocrit 36.5 42-52 % Mean Corpuscular Volume 91.5 80-100 fL Mean Corpuscular Hemoglobin 30.6 25-34 pg Mean Corpuscular Hemoglobin Concent 33.4 32-36 g/dl Platelet Count 91 130-400 K/uL Mean Platelet Volume 12.5 7.4-10.4 fL Neutrophils (%) (Auto) 73.7 % Lymphocytes (%) (Auto) 15.5 % Monocytes (%) (Auto) 8.1 % Eosinophils (%) (Auto) 2.2 % Basophils (%) (Auto) 0.3 % Neutrophils # (Auto) 6.36 1.4-6.5 K/uL Lymphocytes # (Auto) 1.34 1.2-3.4 K/uL Monocytes # (Auto) 0.70 0.11-0.59 K/uL Eosinophils # (Auto) 0.19 0-0.5 K/uL Basophils # (Auto) 0.03 0-0.2 K/uL RDW Standard Deviation 52.3 36.4-46.3 fL RDW Coefficient of Variation 15.6 11.5-14.5 % Immature Granulocyte % (Auto) 0.2 % Immature Granulocyte # (Auto) 0.02 0.00-0.02 K/uL Prothrombin Time 10.5 9.0-12.0 SECONDS Prothromb Time International Ratio 1.0 0.9-1.1 Activated Partial Thromboplast Time 30.6 21.0-31.0 SECONDS Partial Thromboplastin Ratio 1.2 Sodium Level 139 136-145 mmol/L Potassium Level 3.6 3.5-5.1 mmol/L Chloride Level 97 98-107 mmol/L Carbon Dioxide Level 32 21-32 mmol/L Anion Gap 10.0 3-11 mmol/L Blood Urea Nitrogen 13 7-18 mg/dl Creatinine 3.50 0.60-1.40 mg/dl Est Creatinine Clear Calc Drug Dose 29.5 ml/min Estimated GFR () 20.8 Estimated GFR (Non- 17.9 BUN/Creatinine Ratio 3.6 10-20 Random Glucose 103 70-99 mg/dl Calcium Level 8.0 8.5-10.1 mg/dl Total Bilirubin 1.4 0.2-1 mg/dl Direct Bilirubin 0.5 0-0.2 mg/dl Aspartate Amino Transf (AST/SGOT) 27 15-37 U/L Alanine Aminotransferase (ALT/SGPT) 15 12-78 U/L Alkaline Phosphatase 153 45-117 U/L Ammonia 39.0 11-32 umol/L Total Protein 7.3 6.4-8.2 gm/dl Albumin 2.4 3.4-5.0 gm/dl Diagnostic Radiology CXR: FINDINGS: The cardiac and mediastinal contours remain stable. There are left basilar opacities, likely atelectatic although an inflammatory process could appear similar. These remain unchanged. There is no overt failure. There are no significant pleural effusions. Old rib deformities are evident.[ IMPRESSION: Stable left basilar opacities, statistically atelectatic CT HEAD IMPRESSION: Normal noncontrast head CT for age. Impression Assessment and Plan DDx: Hypoglycemic episode, hepatic encephalopathy, electrolyte abnormalities, CVA, TIA, orthostatic hypotension, anemia, sepsis, PNA, Urinary tract Infection Assessment and Plan: Given the patient's history of having altered mental status at the end of dialysis treatment, will treat the patient for potential infection. Electrolytes , ammonia levels, and LFTs will be monitored. 1. Altered Mental Status/Potential Infection: Administer Aztreonam 250mg/ Dextrose 102.5ml and 100mls/hr Q8Hr IV. Administer Vancomycin HCl 1600mg/sodium chloride 532ml and 200mls/hour IV. Continue to monitor CBC. 2.Cirrhosis: Continue with home medications. Administer Lactulose 900 gm TID and Rifaximin 550mg PO BID. Continue to monitor, LFTs, PT/INR, and ammonia levels. 3. End stage renal disease: Continue to monitor electrolytes and kidney function labs. Administer Cholecalciferol 1000 units daily. 4. Diabetes and complications- Administer Novolog, sliding scale and Lyrica 75mg PO daily 5. Hypothyroid: Administer Levothyroxine 0.025 mcg PO daily 6. Hypertension: Administer Nadolol 10mg PO HS 7. GERD- Administer Pantoprazole 40mg BID.
[2016-05-04] MEDS ORDERED: GLUCOSE 40% GEL 15 GM TUBE PO PRN (20:30)
[2016-05-04] MEDS ORDERED: GLUCAGON FOR INJ 1 MG VIAL SQ PRN (20:30)
[2016-05-04] MEDS ORDERED: DEXTROSE 50% 50 ML SYR IV PRN (20:30)
[2016-05-04] MEDS ORDERED: ONDANSETRON INJ 2 MG/ML 2 ML VIAL IV PRN (20:30)
[2016-05-04] MEDS ORDERED: ZOLPIDEM TARTRATE 5 MG TAB PO PRN (20:30)
[2016-05-04] MEDS ORDERED: GLUCOSE 10 TABS/TUBE PO PRN (20:30)
[2016-05-04] MEDS: INSULIN ASPART 100 UNITS/ML 3 ML PEN SC SCH (21:00)
--- NOTE | 2016-05-04 21:33 | EMERGENCY ROOM VISIT NOTE ---
History Report prepared by Marisela: Meghan Lebron Under the Supervision of: Dr. Dalton Pruett M.D. First contact with patient: 15:31 Chief Complaint: ALTERED MENTAL STATUS Stated Complaint: AMS Nursing Triage Summary: Patient went to dialysis treatment today, nurses there noted at the end of treatment patient with altered mental status. Patient oriented to person and place but time and has gerneralized weakness. BSG for EMS 129 History of Present Illness The patient is a 60 year old male who presents to the Emergency Room with complaints of persistent altered mental status today. Per nursing notes, the patient went to dialysis today and towards the end of his treatment, he was not acting like his normal self. The patient states that he does remember going to dialysis this morning, but admits to feeling mildly confused. Currently, he does not have any complaints and does not feel confused. He notes that he did eat today. He was able to complete his entire dialysis treatment. Miguel fever, headache, chest pain, shortness of breath, vomiting, or other complaints. History is limited secondary to altered mental status. Source of History: patient History Limited By: AMS Onset: today Position: other (global - altered mental status) Quality: other (confusion) Timing: other (persistent) Associated Symptoms: No SOB, No chest pain, No fevers, No headache, No vomiting Review of Systems ROS limited secondary to altered mental status. Past Medical & Surgical Medical Problems: (1) Altered mental status (2) Anemia (3) Anxiety (4) Benign hypertension (5) Chronic hepatitis C (6) Chronic osteoarthritis (7) Cirrhosis of liver (8) Closed left acetabular fracture (9) COPD (chronic obstructive pulmonary disease) (10) Depression (11) Diabetes mellitus type 2 (12) Diabetic peripheral neuropathy associated with type 2 diabetes mellitus (13) End stage liver disease (14) ESRD (end stage renal disease) on dialysis (15) Foot deformity (16) GERD (gastroesophageal reflux disease) (17) Hepatic encephalopathy (18) Hepatic encephalopathy (19) History of diabetic ulcer of foot (20) HISTORY OF TOBACCO USE (21) Hypothyroid (22) Hypoxia (23) Loss of sensation (24) OTHER PANCYTOPENIA (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 (26) PORTAL HYPERTENSION (27) Pre-ulcerative corn or callous (28) Problem with dialysis access (29) Secondary hyperparathyroidism of renal origin (30) Toxic encephalopathy Surgical Problems: (1) H/O knee surgery (2) S/P cholecystectomy (3) S/P tonsillectomy Family History Cancer Diabetes mellitus Heart disease Social History Smoking Status: Current Every Day Smoker Alcohol Use: none, other Drug Use: none Marital Status: , in relationship Housing Status: lives alone Occupation Status: disabled Current/Historical Medications Scheduled Albuterol Sulf (Albuterol Sulfate), 5 MG INH UD Calcium Acetate (Phoslo 667 Mg), 667 MG PO TIDM Cholecalciferol (Vitamin D3), 1,000 INTER.UNIT PO DAILY Duloxetine HCl (Cymbalta), 60 MG PO HS Fluticasone Prop/Salmeterol (Advair Diskus 500/50 60 Dose), 1 PUFF INH BID Insulin Aspart (Novolog Flexpen), 1 DOSE SQ AC Insulin Glargine (Lantus Solostar Pen), 8 UNITS SC DAILY@2100 Insulin Lispro (Human) (Humalog Kwikpen), 1 DOSE SQ DIRECTED Lactulose (Constulose), 90 ML PO TID Levothyroxine Sodium (Synthroid), 25 MG PO DAILY Midodrine Hcl (Midodrine Hcl), 10 MG PO 3XWK Nadolol (Corgard), 10 MG PO HS Omeprazole (Prilosec), 20 MG PO BID Pregabalin (Lyrica), 75 MG PO DAILY Rifaximin (Xifaxan), 550 MG PO BID Vitamin B Cmplx/Vitc/Folic Ac (Nephrocaps), 1 CAP PO DAILY Scheduled PRN Oxycodone Ir (Roxicodone Ir), 5 MG PO Q4H PRN for Pain Allergies Coded Allergies: Cephalexin (Verified Allergy, Severe, ANAPHYLAXIS, 05/04/16) Acetaminophen (Verified Adverse Reaction, Mild, D/T LIVER, 05/04/16) Physical Exam Vital Signs Date Time Temp Pulse Resp B/P Pulse Ox O2 Delivery O2 Flow Rate FiO2 05/04/16 20:32 87 15 110/69 96 Room Air 05/04/16 19:16 80 15 103/72 94 Room Air 05/04/16 17:31 80 16 95/59 98 Room Air 05/04/16 15:26 99 Room Air 05/04/16 15:24 36.8 89 16 100/61 97 Room Air Physical Exam Constitutional: Vital signs reviewed. Eyes: Pupils are equal round reactive to light. Conjunctiva are noninjected. ENT: Pharynx is clear without erythema or exudate. Mucous membranes are moist. Neck supple without meningeal signs. Respiratory: Clear to auscultation bilaterally. Breath sounds are equal bilaterally. Cardiovascular: Regular rate and rhythm. No rubs or gallops. GI: Soft, nondistended and nontender. Bowel sounds are present. Musculoskeletal: No lower extremity tenderness. Chronic venostasis discoloration on the legs. Integumentary: No cyanosis. Neurological: The patient is awake and alert. No focal deficits. He is confused and does not follow commands. Asterixis. He is oriented to person only. Psychiatric: Unable to assess. Medical Decision & Procedures ER Provider Diagnostic Interpretation: X-ray results as stated below per interpretation by me and the radiologist. Other radiology results as stated below per my review and the radiologist's interpretation: CT HEAD WITHOUT CONTRAST (CT) CLINICAL HISTORY: Change in mental status. COMPARISON STUDY: 03/25/2016 TECHNIQUE: Axial CT of the brain is performed from the vertex to the skull base. IV contrast was not administered for this examination. CT DOSE: 687.98 mGy.cm FINDINGS: No intra or extra-axial mass lesions are visualized. There is no CT evidence of acute cortical infarction. There is no evidence of midline shift. There is no acute hemorrhage. No calvarial fractures are visualized. There is no evidence of pathologic ventricular dilatation. There is no evidence of acute sinusitis IMPRESSION: Normal noncontrast head CT for age. Electronically signed by: Griffin Colon M.D. 05/04/2016 5:25 PM Dictated Date/Time: 05/04/2016 5:24 PM CHEST 2 VIEWS ROUTINE CLINICAL HISTORY: Change in mental status. Suspected pneumonia. COMPARISON STUDY: 04/20/2016 FINDINGS: The cardiac and mediastinal contours remain stable. There are left basilar opacities, likely atelectatic although an inflammatory process could appear similar. These remain unchanged. There is no overt failure. There are no significant pleural effusions. Old rib deformities are evident.[ IMPRESSION: Stable left basilar opacities, statistically atelectatic Electronically signed by: Griffin Colon M.D. 05/04/2016 6:10 PM Dictated Date/Time: 05/04/2016 6:09 PM Laboratory Results 05/04/16 17:01 Red Blood Count 3.99, Mean Corpuscular Volume 91.5, Mean Corpuscular Hemoglobin 30.6, Mean Corpuscular Hemoglobin Concent 33.4, Mean Platelet Volume 12.5, Neutrophils (%) (Auto) 73.7, Lymphocytes (%) (Auto) 15.5, Monocytes (%) (Auto) 8.1, Eosinophils (%) (Auto) 2.2, Basophils (%) (Auto) 0.3, Neutrophils # (Auto) 6.36, Lymphocytes # (Auto) 1.34, Monocytes # (Auto) 0.70, Eosinophils # (Auto) 0.19, Basophils # (Auto) 0.03 05/04/16 17:01 Test 05/04/16 15:53 05/04/16 17:01 Bedside Glucose 100 mg/dl (70-99) White Blood Count 8.64 K/uL (4.8-10.8) Red Blood Count 3.99 M/uL (4.7-6.1) Hemoglobin 12.2 g/dL (14.0-18.0) Hematocrit 36.5 % (42-52) Mean Corpuscular Volume 91.5 fL (80-100) Mean Corpuscular Hemoglobin 30.6 pg (25-34) Mean Corpuscular Hemoglobin Concent 33.4 g/dl (32-36) Platelet Count 91 K/uL (130-400) Mean Platelet Volume 12.5 fL (7.4-10.4) Neutrophils (%) (Auto) 73.7 % Lymphocytes (%) (Auto) 15.5 % Monocytes (%) (Auto) 8.1 % Eosinophils (%) (Auto) 2.2 % Basophils (%) (Auto) 0.3 % Neutrophils # (Auto) 6.36 K/uL (1.4-6.5) Lymphocytes # (Auto) 1.34 K/uL (1.2-3.4) Monocytes # (Auto) 0.70 K/uL (0.11-0.59) Eosinophils # (Auto) 0.19 K/uL (0-0.5) Basophils # (Auto) 0.03 K/uL (0-0.2) RDW Standard Deviation 52.3 fL (36.4-46.3) RDW Coefficient of Variation 15.6 % (11.5-14.5) Immature Granulocyte % (Auto) 0.2 % Immature Granulocyte # (Auto) 0.02 K/uL (0.00-0.02) Prothrombin Time 10.5 SECONDS (9.0-12.0) Prothromb Time International Ratio 1.0 (0.9-1.1) Activated Partial Thromboplast Time 30.6 SECONDS (21.0-31.0) Partial Thromboplastin Ratio 1.2 Anion Gap 10.0 mmol/L (3-11) Est Creatinine Clear Calc Drug Dose 29.5 ml/min Estimated GFR () 20.8 Estimated GFR (Non- 17.9 BUN/Creatinine Ratio 3.6 (10-20) Calcium Level 8.0 mg/dl (8.5-10.1) Total Bilirubin 1.4 mg/dl (0.2-1) Direct Bilirubin 0.5 mg/dl (0-0.2) Aspartate Amino Transf (AST/SGOT) 27 U/L (15-37) Alanine Aminotransferase (ALT/SGPT) 15 U/L (12-78) Alkaline Phosphatase 153 U/L (45-117) Ammonia 39.0 umol/L (11-32) Total Protein 7.3 gm/dl (6.4-8.2) Albumin 2.4 gm/dl (3.4-5.0) Laboratory results as reviewed by me. Medications Administered Medications (Trade) Dose Ordered Sig/Calrice Route Start Time Stop Time Status Last Admin Dose Admin Aztreonam 1000 mg/ Dextrose 110 ml @ 110 mls/hr NOW STAT IV 05/04/16 18:52 05/04/16 19:51 DC 05/04/16 19:17 110 MLS/HR Vancomycin HCl/ Sodium Chloride (Vancomycin Inj/ Nss 500ml) 532 ml @ 200 mls/hr NOW STAT IV 05/04/16 18:54 05/04/16 21:33 05/04/16 20:30 200 MLS/HR ECG Indication: altered mental status Rate (beats per minute): 84 Rhythm: sinus rhythm Findings: PVC, no acute ischemic change ED Course 1535: The patient was evaluated in room A4. A complete history and physical exam was performed. 0: I reassessed the patient. He is still confused. He is only oriented to person. 1822: Ordered Vancomycin HCl 1000 mg/NSS 270 ml @ 125 mls/hr IV. 1824: I discussed the case with Dr. Sri GILLIAM Hospitalist. The patient will be evaluated for further management. 1829: Ordered Aztreonam 1000 mg/Dextrose 110 ml @ 100 mls/hr IV. Medical Decision This is a 60-year-old male who presents with altered mental status. Differential diagnosis includes hepatic encephalopathy, delirium, intracranial mass, intracranial hemorrhage, infection, metabolic derangement. I did perform a limited focused review of portions of the patient's old chart on the electronic medical record. He was admitted April 20 for COPD exacerbation, fever, and chills. He was placed on 7 days of Levaquin and his ammonia was 40 which is relatively low for him. I did evaluate the patient as noted above. The patient is presenting with altered mental status after dialysis today. On examination he is confused. He is only oriented to person. He does deny any specific complaints. IV access was established. The patient was placed on a continuous cardiac cath lab technologist. I did order and personally review the patient's 12-lead EKG and chest x-ray as described above. I did order and review the patient's blood work as noted in the electronic medical record. His ammonia level is 39. I did order a CT of the head. I did review the images myself as well as the radiology report as described above. There is no evidence of intracranial hemorrhage or acute process. I did reassess the patient. He remains confused. He nods off while I 'm trying to talk to him. He is only oriented to person. When asked where he is he repetitively [place] [employer] but cannot give any further details. At this time he will be hospitalized for further evaluation. I did discuss the case with Dr. Soriano and the trimming caser. Consults Time Called: 1819 Consulting Physician: Dr. Sri GILLIAM Hospitalist Returned Call: [phone] I discussed the case with her. The patient will be evaluated for further management. Impression Primary Impression: Altered mental status Scribe Attestation The scribe's documentation has been prepared under my direct and personally reviewed by me in its entirety. I confirm that the note above accurately reflects all work, treatment, procedures, and medical decision making performed by me. Departure Information Dispostion Being Evaluated By Hospitalist Referrals Alix Garza M.D. (PCP) Patient Instructions My [facility] Problem Qualifiers Primary Impression: Altered mental status
[2016-05-04 22:48] VITALS: BP 118/81; PULSE 71; TEMP 36.6; O2SAT 96; Ht 188 cm; Wt 107.4 kg
[2016-05-04] MEDS: DULOXETINE HCL 60 MG CAP PO SCH (23:51)
[2016-05-04] MEDS: PANTOprazole SOD 40 MG TAB PO SCH (23:51)
[2016-05-04] MEDS: LACTULOSE SYRUP 20 GM/30 ML UDC PO SCH (23:53)
[2016-05-04] MEDS: NADOLOL 40 MG TAB PO SCH (23:53)
[2016-05-05] MEDS: AZTREONAM IV 250 MG in DEXTROSE 5% 100ML 100 ML IV SCH ×3 (02:28→18:21)
--- NOTE | 2016-05-05 04:40 | History and Physical ---
History & Physical Date & Time of Service: May 05, 2016 at 04:33 Chief Complaint: Altered Mental Status, Esrd Primary Care Physician: Alix Garza M.D. History of Present Illness Source: patient Patient is a 60-year-old male who developed altered mental status after dialysis and was sent to the emergency department for assessment. He reports he does remember going to dialysis morning, but not much beyond that. He has not any specific complaints. He did complete his entire dialysis treatment . His history of present illness is otherwise limited secondary to altered mental status. Past Medical/Surgical History Medical Problems: (1) Altered mental status Status: Chronic (2) Anxiety Status: Chronic (3) Benign hypertension Status: Chronic (4) Chronic hepatitis C Status: Chronic (5) Chronic osteoarthritis Status: Chronic (6) Cirrhosis of liver Status: Chronic (7) Closed left acetabular fracture Status: Chronic (8) COPD (chronic obstructive pulmonary disease) Status: Chronic (9) Depression Status: Chronic (10) Diabetes mellitus type 2 Status: Chronic (11) ESRD (end stage renal disease) on dialysis Status: Chronic (12) GERD (gastroesophageal reflux disease) Status: Chronic (13) HISTORY OF TOBACCO USE Status: Chronic (14) Hypothyroid Status: Chronic (15) OTHER PANCYTOPENIA Status: Chronic (16) PERSONAL HISTORY OF PULMONARY EMBOLISM Status: Chronic (17) PORTAL HYPERTENSION Status: Chronic Surgical Problems: (1) H/O knee surgery Status: Chronic (2) S/P cholecystectomy Status: Chronic (3) S/P tonsillectomy Status: Chronic Family History Cancer Diabetes mellitus Heart disease Social History Smoking Status: Current Every Day Smoker Alcohol Use: none Drug Use: none Marital Status: , in relationship Housing status: lives with significant other Occupational Status: disabled Immunizations History of Influenza Vaccine: Yes Influenza Vaccine Date: Dec 07, 2012 History of Tetanus Vaccine?: Unknown Tetanus Immunization Date: Nov 13, 2010 History of Pneumococcal: Yes Pneumococcal Date: Feb 11, 2012 History of Hepatitis B Vaccine: IN PROGRESS HAS HAD 2 SHOTS Hepatitis Immunization Date: Dec 07, 2012 Multi-Drug Resistant Organisms History of MDRO: No Allergies Coded Allergies: Cephalexin (Verified Allergy, Severe, ANAPHYLAXIS, 05/04/16) Acetaminophen (Verified Adverse Reaction, Mild, D/T LIVER, 05/04/16) Home Medications Scheduled Albuterol Sulf (Albuterol Sulfate), 5 MG INH UD Calcium Acetate (Phoslo 667 Mg), 667 MG PO TIDM Cholecalciferol (Vitamin D3), 1,000 INTER.UNIT PO DAILY Duloxetine HCl (Cymbalta), 60 MG PO HS Fluticasone Prop/Salmeterol (Advair Diskus 500/50 60 Dose), 1 PUFF INH BID Insulin Aspart (Novolog Flexpen), 1 DOSE SQ AC Insulin Glargine (Lantus Solostar Pen), 8 UNITS SC DAILY@2100 Insulin Lispro (Human) (Humalog Kwikpen), 1 DOSE SQ DIRECTED Lactulose (Constulose), 90 ML PO TID Levothyroxine Sodium (Synthroid), 25 MG PO DAILY Midodrine Hcl (Midodrine Hcl), 10 MG PO 3XWK Nadolol (Corgard), 10 MG PO HS Omeprazole (Prilosec), 20 MG PO BID Pregabalin (Lyrica), 75 MG PO DAILY Rifaximin (Xifaxan), 550 MG PO BID Vitamin B Cmplx/Vitc/Folic Ac (Nephrocaps), 1 CAP PO DAILY Scheduled PRN Oxycodone Ir (Roxicodone Ir), 5 MG PO Q4H PRN for Pain Review of Systems Review of systems is significantly limited due to the patient's altered mental status. Physical Exam Vital Signs Date Time Temp Pulse Resp B/P Pulse Ox O2 Delivery O2 Flow Rate FiO2 05/05/16 00:05 Room Air 05/04/16 22:48 36.6 71 16 118/81 96 Room Air 05/04/16 21:49 81 16 100/65 96 05/04/16 21:35 81 16 100/65 96 Room Air 05/04/16 20:32 87 15 110/69 96 Room Air 05/04/16 19:16 80 15 103/72 94 Room Air 05/04/16 17:31 80 16 95/59 98 Room Air 05/04/16 15:26 99 Room Air 05/04/16 15:24 36.8 89 16 100/61 97 Room Air The patient is lethargic, arousable, is lying in bed and in no acute distress. HEENT--PERRL, EOMI, mucous membranes and oropharynx dry. Neck--supple, no JVD or bruits, thyroid normal, trachea midline, no adenopathy. Heart--normal S1 and S2, no extra beats, no murmurs, rubs or gallops. Lungs--clear bilaterally. no respiratory distress, no accessory muscle use. Abdomen--normal bowel sounds and soft, nontender and nondistended, no hernias or masses, no organomegaly. Extremities--no cyanosis, clubbing or edema. There are good distal pulses b/l. Dermatologic--normal skin turgor, normal color, warm and dry, no abnormal lymph nodes, no rash. Neurologic--cranial nerves II through XII grossly intact. Psychiatric--lethargic. Diagnostics Laboratory Results Results Past 24 Hours Test 05/04/16 15:53 05/04/16 17:01 05/04/16 21:34 Range/Units Bedside Glucose 100 89 70-99 mg/dl White Blood Count 8.64 4.8-10.8 K/uL Red Blood Count 3.99 4.7-6.1 M/uL Hemoglobin 12.2 14.0-18.0 g/dL Hematocrit 36.5 42-52 % Mean Corpuscular Volume 91.5 80-100 fL Mean Corpuscular Hemoglobin 30.6 25-34 pg Mean Corpuscular Hemoglobin Concent 33.4 32-36 g/dl Platelet Count 91 130-400 K/uL Mean Platelet Volume 12.5 7.4-10.4 fL Neutrophils (%) (Auto) 73.7 % Lymphocytes (%) (Auto) 15.5 % Monocytes (%) (Auto) 8.1 % Eosinophils (%) (Auto) 2.2 % Basophils (%) (Auto) 0.3 % Neutrophils # (Auto) 6.36 1.4-6.5 K/uL Lymphocytes # (Auto) 1.34 1.2-3.4 K/uL Monocytes # (Auto) 0.70 0.11-0.59 K/uL Eosinophils # (Auto) 0.19 0-0.5 K/uL Basophils # (Auto) 0.03 0-0.2 K/uL RDW Standard Deviation 52.3 36.4-46.3 fL RDW Coefficient of Variation 15.6 11.5-14.5 % Immature Granulocyte % (Auto) 0.2 % Immature Granulocyte # (Auto) 0.02 0.00-0.02 K/uL Prothrombin Time 10.5 9.0-12.0 SECONDS Prothromb Time International Ratio 1.0 0.9-1.1 Activated Partial Thromboplast Time 30.6 21.0-31.0 SECONDS Partial Thromboplastin Ratio 1.2 Sodium Level 139 136-145 mmol/L Potassium Level 3.6 3.5-5.1 mmol/L Chloride Level 97 98-107 mmol/L Carbon Dioxide Level 32 21-32 mmol/L Anion Gap 10.0 3-11 mmol/L Blood Urea Nitrogen 13 7-18 mg/dl Creatinine 3.50 0.60-1.40 mg/dl Est Creatinine Clear Calc Drug Dose 29.5 ml/min Estimated GFR () 20.8 Estimated GFR (Non- 17.9 BUN/Creatinine Ratio 3.6 10-20 Random Glucose 103 70-99 mg/dl Calcium Level 8.0 8.5-10.1 mg/dl Total Bilirubin 1.4 0.2-1 mg/dl Direct Bilirubin 0.5 0-0.2 mg/dl Aspartate Amino Transf (AST/SGOT) 27 15-37 U/L Alanine Aminotransferase (ALT/SGPT) 15 12-78 U/L Alkaline Phosphatase 153 45-117 U/L Ammonia 39.0 11-32 umol/L Total Protein 7.3 6.4-8.2 gm/dl Albumin 2.4 3.4-5.0 gm/dl Diagnostic Radiology Patient Name: FARZANEH RANDOLPH Unit Number: [id number] Dictated: 05/04/161723 Transcribed: 05/04/161723 ARG Printed Date/Time: [~ rep prt dt]/[~ rep prt tm] [~ rep ct labl] - [~ rep ct ivnm] [facility] Radiology Department [place], [place] [id number] Dictated: 05/04/161723 Transcribed: 05/04/161723 ARG Printed Date/Time: [~ rep prt dt]/[~ rep prt tm] [~ rep ct labl] - [~ rep ct ivnm] CT HEAD WITHOUT CONTRAST (CT) CLINICAL HISTORY: Change in mental status. COMPARISON STUDY: 03/25/2016 TECHNIQUE: Axial CT of the brain is performed from the vertex to the skull base. IV contrast was not administered for this examination. CT DOSE: 687.98 mGy.cm FINDINGS: No intra or extra-axial mass lesions are visualized. There is no CT evidence of acute cortical infarction. There is no evidence of midline shift. There is no acute hemorrhage. No calvarial fractures are visualized. There is no evidence of pathologic ventricular dilatation. There is no evidence of acute sinusitis IMPRESSION: Normal noncontrast head CT for age. Electronically signed by: Griffin Colon M.D. 05/04/2016 5:25 PM Dictated Date/Time: 05/04/2016 5:24 PM The status of this report is Signed. Draft = Not yet reviewed or approved by Radiologist. Signed = Reviewed and approved by Radiologist. <AttendingPhy></AttendingPhy> <FamilyPhy>Alix Garza M.D.</FamilyPhy> < PrimaryPhy>Alix Garza M.D.</PrimaryPhy> <UnitNumber>[id number]</UnitNumber> <VisitNumber>[id number]</VisitNumber> <PatientName>FARZANEH RANDOLPH</ PatientName> <DateOfBirth>1955</DateOfBirth> <Location>[facility]</Location> < ServiceDate>05/04/16</ServiceDate> <MNE>ESINDI</MNE> <OrderingPhy>Dalton Pruett MD</OrderingPhy> <OrderingPhyMNE>f rep ord dr bynum</OrderingPhyMNE> < DictatingPhyMNE>f rep dict dr bynum</DictatingPhyMNE> <CCListMNE>f rep ct fletcher</ CCListMNE> <AdmittingPhyMNE>f pt admit dr bynum</AdmittingPhyMNE> <AttendingPhyMNE >f pt attend dr bynum</AttendingPhyMNE> <ConsultingPhyMNE>f pt consult dr bynum</ConsultingPhyMNE> <FamilyPhyMNE>f pt fam dr bynum</FamilyPhyMNE> <OtherPhyMNE>f pt other dr bynum</OtherPhyMNE> < PrimaryPhyMNE>f pt prim care dr bynum</PrimaryPhyMNE> <ReferringPhyMNE>f pt referring dr bynum</ReferringPhyMNE> Patient Name: FARZANEH RANDOLPH Unit Number: [id number] Dictated: 05/04/161808 Transcribed: 05/04/161808 ARG Printed Date/Time: [~ rep prt dt]/[~ rep prt tm] [~ rep ct labl] - [~ rep ct ivnm] [facility] Radiology Department [place] [id number] Dictated: 05/04/161808 Transcribed: 05/04/161808 ARG Printed Date/Time: [~ rep prt dt]/[~ rep prt tm] [~ rep ct labl] - [~ rep ct ivnm] [~ rep ct add3]] CHEST 2 VIEWS ROUTINE CLINICAL HISTORY: Change in mental status. Suspected pneumonia. COMPARISON STUDY: 04/20/2016 FINDINGS: The cardiac and mediastinal contours remain stable. There are left basilar opacities, likely atelectatic although an inflammatory process could appear similar. These remain unchanged. There is no overt failure. There are no significant pleural effusions. Old rib deformities are evident.[ IMPRESSION: Stable left basilar opacities, statistically atelectatic Electronically signed by: Griffin Colon M.D. 05/04/2016 6:10 PM Dictated Date/Time: 05/04/2016 6:09 PM The status of this report is Signed. Draft = Not yet reviewed or approved by Radiologist. Signed = Reviewed and approved by Radiologist. <AttendingPhy></AttendingPhy> <FamilyPhy>Alix Garza M.D.</FamilyPhy> < PrimaryPhy>Alix Garza M.D.</PrimaryPhy> <UnitNumber>[id number]</UnitNumber> <VisitNumber>[id number]</VisitNumber> <PatientName>FARZANEH RANDOLPH</ PatientName> <DateOfBirth>1955</DateOfBirth> <Location>[facility]</Location> < ServiceDate>05/04/16</ServiceDate> <MNE>ESINDI</MNE> <OrderingPhy>Dalton Pruett MD</OrderingPhy> <OrderingPhyMNE>f rep ord dr bynum</OrderingPhyMNE> < DictatingPhyMNE>f rep dict dr bynum</DictatingPhyMNE> <CCListMNE>f rep ct fletcher</ CCListMNE> <AdmittingPhyMNE>f pt admit dr bynum</AdmittingPhyMNE> <AttendingPhyMNE >f pt attend dr bynum</AttendingPhyMNE> <ConsultingPhyMNE>f pt consult dr bynum</ConsultingPhyMNE> <FamilyPhyMNE>f pt fam dr bynum</FamilyPhyMNE> <OtherPhyMNE>f pt other dr bynum</OtherPhyMNE> < PrimaryPhyMNE>f pt prim care dr bynum</PrimaryPhyMNE> <ReferringPhyMNE>f pt referring dr bynum</ReferringPhyMNE> Impression Assessment and Plan Altered mental status post dialysis--differential is primarily that of urinary system infection versus excessive fluid removal. Patient admitted to the medical surgical floor, and place empirically on vancomycin IV and aztreonam IV. We'll follow urine cultures and blood cultures. End-stage renal disease on hemodialysis--just completed dialysis on Wednesday today. Hepatitis C with history of hepatic encephalopathy--relatively low ammonia level. Continue lactulose 60 mg by mouth 3 times a day baseline dose. Diabetes mellitus--hold Lantus insulin 8 units subcutaneous daily until patient has good oral intake. Place on Accu-Cheks before meals and at bedtime with NovoLog coverage. Hypothyroidism continue levothyroxine sodium 25 g by mouth daily. Depression--continue duloxetine 60 mg by mouth at bedtime. Asthma--continue Advair discus 500/50 one inhalation twice a day, and albuterol HFA 2 puffs 4 times a day when necessary. Level of Care Med/Surg Advanced Directives Existing Advance Directive: Yes Existing Living Will: Yes Existing Power of Back Tender Cylinder: Yes Resuscitation Status FULL RESUSCITATION VTE Prophylaxis VTE Risk Assessment Done? Y/N: Yes Risk Level: Moderate Given or contraindicated: SCD's
[2016-05-05 05:40] LABS: HEMATOCRIT 34.7 % (42-52); MEAN CORPUSCULAR HEMOGLOBIN 29.4 pg (25-34); MEAN PLATELET VOLUME 12.2 fL (7.4-10.4); PLATELET COUNT 104 K/uL (130-400); RED BLOOD COUNT 3.77 M/uL (4.7-6.1); WHITE BLOOD COUNT 6.97 K/uL (4.8-10.8)
[2016-05-05 05:43] LABS: PARTIAL THROMBOPLASTIN RATIO 1.2; PROTHROMBIN TIME (PATIENT) 11.2 SECONDS (9.0-12.0)
[2016-05-05 05:54] LABS: BASO % 0.6 %; BASO ABS # 0.04 K/uL (0-0.2); COMPLETE YES; IG% 0.3 %; LYMPH % 20.2 %; LYMPH ABS # 1.41 K/uL (1.2-3.4); NEUT % 67.9 %
[2016-05-05] MEDS: LEVOTHYROXINE 25 MCG TAB PO SCH (05:54)
[2016-05-05 06:13] LABS: BUN/CREATININE RATIO 4.3 (10-20); CALCIUM 8.1 mg/dl (8.5-10.1); CREATININE 4.5 mg/dl (0.60-1.40); MAGNESIUM 2.3 mg/dl (1.8-2.4)
[2016-05-05] MEDS: INSULIN ASPART 100 UNITS/ML 3 ML PEN SC SCH ×4 (06:30→19:56)
[2016-05-05 07:45] VITALS: O2SAT 96
[2016-05-05 07:56] VITALS: BP 90/58; PULSE 74; TEMP 36.7; O2SAT 93
[2016-05-05] MEDS: CHOLECALCIFEROL 1000 INTER.UNIT TAB PO SCH (08:00)
[2016-05-05] MEDS: NEPHROCAPS PO SCH (08:01)
[2016-05-05] MEDS: CALCIUM ACETATE 667MG GELCAP PO SCH ×3 (08:01→18:17)
[2016-05-05] MEDS: PANTOprazole SOD 40 MG TAB PO SCH ×2 (08:01→19:52)
[2016-05-05] MEDS: RIFAXIMIN TAB 550 MG TAB PO SCH ×2 (08:01→19:52)
[2016-05-05] MEDS: LACTULOSE SYRUP 20 GM/30 ML UDC PO SCH ×3 (08:02→19:52)
[2016-05-05] MEDS: PREGABALIN 75 MG CAP PO SCH (08:04)
--- NOTE | 2016-05-05 08:50 | Progress Note ---
Subjective Date of Service: May 05, 2016. Subjective Pt evaluation today including: conversation w/ patient, conversation w/ family , physical exam, chart review, lab review, review of studies, conversation w/ documentum consultant, review of inpatient medication list lethargic, however, he is awake and alert and orientated, know name birthday and place, and 's name, no other complaining Problem List Medical Problems: (1) Acute kidney injury Status: Acute (2) Acute renal failure Status: Acute (3) Altered mental status Status: Chronic (4) Anemia Status: Acute (5) CHF (congestive heart failure) Status: Acute (6) Chronic kidney disease Status: Acute (7) Confusion Status: Acute (8) COPD exacerbation Status: Acute (9) Drowsiness Status: Acute (10) Elevated bilirubin Status: Acute (11) End stage renal disease Status: Acute (12) Fall Status: Acute (13) Headache Status: Acute (14) Hyperammonemia Status: Acute (15) Hyperammonemia Status: Acute (16) Hyperammonemia Status: Acute (17) Hyperammonemia Status: Acute (18) Hypotension Status: Acute (19) Increased ammonia level Status: Acute (20) Increased ammonia level Status: Acute (21) Increased ammonia level Status: Acute (22) Left acetabular fracture Status: Acute (23) Metabolic encephalopathy Status: Acute (24) Opacity of lung on imaging study Status: Acute (25) Opioid overdose Status: Acute (26) Pleural effusion Status: Acute (27) Pneumonia Status: Acute (28) Renal failure Status: Acute (29) Sepsis Status: Acute (30) Severe sepsis with acute organ dysfunction Status: Acute (31) Stroke Status: Acute (32) Urinary tract infection Status: Acute Review of Systems Constitutional: + fatigue, + problem reported (is limited because of a little bit lethargic and drowsy), + weakness, No chills, No fever, No see HPI, No sweats, No weight loss Eyes: No diplopia, No discharge, No eye pain, No problem reported, No redness, No see HPI, No worsening of vision ENT: No dental problems, No hearing loss, No nasal symptoms, No problem reported, No see HPI, No sore throat, No tinnitus, No trouble swallowing, No unusual epistaxis Respiratory: + cough, + shortness of breath, + wheezing Cardiac: No PND, No chest pain, No claudication, No edema, No orthopnea, No palpitations, No problem reported, No see HPI Breast: No breast lump, No breast pain, No change in shape, No nipple discharge , No problem reported, No see HPI Abdomen: No GI bleeding, No constipation, No diarrhea, No nausea, No pain, No problem reported, No see HPI, No vomiting Musculoskeletal: No calf pain, No joint pain, No muscle pain, No problem reported, No see HPI, No swelling Male : No dysuria, No hematuria, No incontinence, No nocturia more than once/ night, No problem reported, No see HPI, No sexual dysfunction, No slowing stream , No urinary frequency Neurologic: + see HPI, No weakness Psychiatric: No anhedonism, No anxiety, No depression symptoms, No insomnia, No problem reported, No see HPI, No substance abuse Heme: No abnormal bleeding/bruising, No clotting problems, No night sweats, No problem reported, No see HPI, No swollen lymph nodes Skin: No bleeding, No color change, No itch, No new/changing skin lesions, No problem reported, No rash, No see HPI Objective Vital Signs Date Time Temp Pulse Resp B/P Pulse Ox O2 Delivery O2 Flow Rate FiO2 05/05/16 07:56 36.7 74 18 90/58 93 Room Air 05/05/16 00:05 Room Air 05/04/16 22:48 36.6 71 16 118/81 96 Room Air 05/04/16 21:49 81 16 100/65 96 05/04/16 21:35 81 16 100/65 96 Room Air 05/04/16 20:32 87 15 110/69 96 Room Air 05/04/16 19:16 80 15 103/72 94 Room Air 05/04/16 17:31 80 16 95/59 98 Room Air 05/04/16 15:26 99 Room Air 05/04/16 15:24 36.8 89 16 100/61 97 Room Air Physical Exam General Appearance: + obese, + pertinent finding (chronic ill-looking) Eyes: normal inspection, PERRL, EOMI, sclerae normal ENT: normal ENT inspection, hearing grossly normal, pharynx normal Neck: supple, no adenopathy, thyroid normal, no JVD, no carotid bruits, trachea midline Respiratory/Chest: + decreased breath sounds, + wheezing (mild) Cardiovascular: regular rate, rhythm, no edema, no gallop, no JVD, no murmur Abdomen: normal bowel sounds, non tender, soft, no organomegaly, no pulsatile mass Extremities: normal range of motion, non-tender, normal inspection, no pedal edema, no calf tenderness, normal capillary refill, pelvis stable Neurologic/Psychiatric: engineer technical staff II-XII nml as tested, no motor/sensory deficits, alert, normal mood/affect, oriented x 3 Skin: normal color, warm/dry, no rash Laboratory Results Last 24 Hours Test 05/04/16 15:53 05/04/16 17:01 05/04/16 21:34 05/05/16 05:05 Bedside Glucose 100 mg/dl 89 mg/dl White Blood Count 8.64 K/uL 6.97 K/uL Red Blood Count 3.99 M/uL 3.77 M/uL Hemoglobin 12.2 g/dL 11.1 g/dL Hematocrit 36.5 % 34.7 % Mean Corpuscular Volume 91.5 fL 92.0 fL Mean Corpuscular Hemoglobin 30.6 pg 29.4 pg Mean Corpuscular Hemoglobin Concent 33.4 g/dl 32.0 g/dl Platelet Count 91 K/uL 104 K/uL Mean Platelet Volume 12.5 fL 12.2 fL Neutrophils (%) (Auto) 73.7 % 67.9 % Lymphocytes (%) (Auto) 15.5 % 20.2 % Monocytes (%) (Auto) 8.1 % 8.0 % Eosinophils (%) (Auto) 2.2 % 3.0 % Basophils (%) (Auto) 0.3 % 0.6 % Neutrophils # (Auto) 6.36 K/uL 4.73 K/uL Lymphocytes # (Auto) 1.34 K/uL 1.41 K/uL Monocytes # (Auto) 0.70 K/uL 0.56 K/uL Eosinophils # (Auto) 0.19 K/uL 0.21 K/uL Basophils # (Auto) 0.03 K/uL 0.04 K/uL RDW Standard Deviation 52.3 fL 53.1 fL RDW Coefficient of Variation 15.6 % 16.0 % Immature Granulocyte % (Auto) 0.2 % 0.3 % Immature Granulocyte # (Auto) 0.02 K/uL 0.02 K/uL Prothrombin Time 10.5 SECONDS 11.2 SECONDS Prothromb Time International Ratio 1.0 1.0 Activated Partial Thromboplast Time 30.6 SECONDS 31.0 SECONDS Partial Thromboplastin Ratio 1.2 1.2 Sodium Level 139 mmol/L 141 mmol/L Potassium Level 3.6 mmol/L 4.0 mmol/L Chloride Level 97 mmol/L 100 mmol/L Carbon Dioxide Level 32 mmol/L 29 mmol/L Anion Gap 10.0 mmol/L 12.0 mmol/L Blood Urea Nitrogen 13 mg/dl 20 mg/dl Creatinine 3.50 mg/dl 4.50 mg/dl Est Creatinine Clear Calc Drug Dose 29.5 ml/min 22.9 ml/min Estimated GFR () 20.8 15.3 Estimated GFR (Non- 17.9 13.2 BUN/Creatinine Ratio 3.6 4.3 Random Glucose 103 mg/dl 129 mg/dl Calcium Level 8.0 mg/dl 8.1 mg/dl Total Bilirubin 1.4 mg/dl 1.3 mg/dl Direct Bilirubin 0.5 mg/dl 0.4 mg/dl Aspartate Amino Transf (AST/SGOT) 27 U/L 25 U/L Alanine Aminotransferase (ALT/SGPT) 15 U/L 15 U/L Alkaline Phosphatase 153 U/L 138 U/L Ammonia 39.0 umol/L Total Protein 7.3 gm/dl 6.2 gm/dl Albumin 2.4 gm/dl 2.1 gm/dl Magnesium Level 2.3 mg/dl Random Vancomycin Level 22.9 mcg/ml Test 05/05/16 07:45 Bedside Glucose 117 mg/dl Assessment and Plan 60-year-old admitted because of altered mental status post dialysis on 05/04/2016 Altered mental status, differential is primarily that of urinary system infection versus excessive fluid removal. Possible has sepsis Continue empirically on vancomycin IV and aztreonam IV. We'll follow urine cultures and blood cultures. He has a known end-stage liver disease, liver cirrhosis, he has multiple admissions because of hepatic encephalopathy, however the ammonia level is within normal range upon admission He has history of COPD, in the physical exam he has no difficulty breathing, do not need oxygen, but in the lung examination has some wheezing and decreased breathing sounds, I will check ABG and to see his oxygen levels and go from there, start nebulizer treatment End-stage renal disease on hemodialysis, renal consulted Hepatitis C with history of hepatic encephalopathy--relatively low ammonia level. Continue lactulose 60 mg by mouth 3 times a day baseline dose. Diabetes mellitus--hold Lantus insulin 8 units subcutaneous daily until patient has good oral intake. Place on Accu-Cheks before meals and at bedtime with NovoLog coverage. Hypothyroidism continue levothyroxine sodium 25 g by mouth daily. Depression--continue duloxetine 60 mg by mouth at bedtime. Asthma--continue Advair discus 500/50 one inhalation twice a day, and albuterol HFA 2 puffs 4 times a day when necessary. DVT ppx: heparin, Teds, scds CODE STATUS: DNR, I called to patient's , updated her conditions and confirm that she is do not resuscitation Continued [facility] stay due to: multiple IV medications needed Discharge planning: home
[2016-05-05 09:35] LABS: ALLEN TEST POS (POS); O2 ADMINISTRATION ROOM AIR
[2016-05-05 09:40] LABS: ARTERIAL BLD GAS O2 SATURATION 90.7 % (90-95); ARTERIAL BLOOD GAS BASE EXCESS 5.1 mEq/L (-9-1.8); ARTERIAL BLOOD GAS HCO3 28 mmol/L (19-24); ARTERIAL BLOOD GAS PO2 62 mm/Hg (80-95); ARTERIAL BLOOD GAS pH 7.51 (7.35-7.45)
[2016-05-05] MEDS: ALBUT/IPRATROP 3MG/0.5MG NEB 3 ML VIAL INH SCH ×3 (12:00→18:59)
--- NOTE | 2016-05-05 13:33 | Nephrology Consultation ---
Nephrology Consultation Date & Providers Date of Consultation: May 05, 2016. Primary Care Provider: Alix Garza M.D. Referring Provider: History of Present Illness Loyd is a 60-year-old gentlemen with past medical history significant for end- stage renal disease on hemodialysis Wednesday med, history of end- stage liver disease, hypertension and recurrent hospital admission for hepatic / metabolic encephalopathy admitted to the hospital with an episode of altered mental status. Nephrology consult was requested to manage hemodialysis while inpatient. Electronic medical records including labs and imaging are reviewed in the patient's visit. Loyd has end-stage renal disease, on hemodialysis Wednesday, Wednesday, Wednesday at [facility] dialysis unit. His last dialysis was yesterday, had if will treatment as far that dialysis unit nurse. However, after dialysis he was found to have change in mental status, was lethargic and and brought to the emergency room for further evaluation. No leukocytosis or significant hypotension. He was admitted with a diagnosis of possible pneumonia and started on vancomycin and aztreonam. Has history of end-stage liver pre and recurrent hospital admission for hepatic encephalopathy. On admission his ammonia level was 39. CT head was negative for any acute intracranial process. Chest x-ray showed possible atelectasis. Currently he seems still lethargic and drowsy but he wakes up easily and answers question appropriately. Allergies Coded Allergies: Cephalexin (Verified Allergy, Severe, ANAPHYLAXIS, 05/04/16) Acetaminophen (Verified Adverse Reaction, Mild, D/T LIVER, 05/04/16) Inpatient Medications Current Inpatient Medications Medications (Trade) Dose Ordered Sig/Clarice Route Start Time Stop Time Status Last Admin Dose Admin Aztreonam/Dextrose (Azactam IV/D5 100ml) 102.5 ml @ 100 mls/hr Q8H IV 05/05/16 02:00 05/15/16 01:59 05/05/16 02:28 100 MLS/HR Vancomycin HCl (Consult) 1 ea UD PRN N/A 05/04/16 19:15 06/03/16 19:14 Aztreonam (Consult) 1 ea UD PRN N/A 05/04/16 19:15 06/03/16 19:14 Zolpidem Tartrate (Ambien Tab) 5 mg HSZ PRN PO 05/04/16 20:30 06/03/16 20:29 05/04/16 23:51 5 MG Calcium Acetate (Phoslo Cap) 667 mg TIDM PO 05/05/16 08:00 06/04/16 07:59 05/05/16 08:01 667 MG Cholecalciferol (Vitamin D Tab) 1,000 inter.unit DAILY PO 05/05/16 08:00 06/04/16 08:59 05/05/16 08:00 1,000 INTER.UNIT Duloxetine HCl (Cymbalta Cap) 60 mg HS PO 05/04/16 21:00 06/03/16 20:59 05/04/16 23:51 60 MG Lactulose (Chronulac Syrup) 60 gm TID PO 05/04/16 22:00 06/03/16 21:59 05/05/16 08:02 60 GM Levothyroxine Sodium (Synthroid Tab) 25 mcg DAILYBB PO 05/05/16 06:30 06/04/16 06:29 05/05/16 05:54 25 MCG Nadolol (Corgard Tab) 10 mg HS PO 05/04/16 21:00 06/03/16 20:59 05/04/16 23:53 10 MG Oxycodone HCl (Roxicodone Immediate Rel Tab) 5 mg Q4H PRN PO 05/04/16 20:30 05/18/16 20:29 Pregabalin (Lyrica Cap) 75 mg DAILY PO 05/05/16 08:00 06/04/16 08:59 05/05/16 08:04 75 MG Rifaximin (Xifaxan Tab) 550 mg BID PO 05/04/16 21:00 06/03/16 20:59 05/05/16 08:01 550 MG Vitamin B Complex/ Vit C/Folic Acid (Nephrocaps) 1 cap DAILY PO 05/05/16 08:00 06/04/16 08:59 05/05/16 08:01 1 CAP Pantoprazole Sodium (Protonix Tab) 40 mg BID PO 05/04/16 22:00 06/03/16 21:59 05/05/16 08:01 40 MG Ondansetron HCl (Zofran Inj) 4 mg Q6H PRN IV 05/04/16 20:30 06/03/16 20:29 Insulin Aspart (novoLOG ASPART) SLIDING SCALE If C... ACHS SC 05/04/16 21:00 06/03/16 20:59 Glucose (Glucose 40% Gel) UD PRN PO 05/04/16 20:30 06/03/16 20:29 Glucose (Glucose Chew Tab) 1 tabs UD PRN PO 05/04/16 20:30 06/03/16 20:29 Dextrose (Dextrose 50% 50ML Syringe) 50 ml UD PRN IV 05/04/16 20:30 06/03/16 20:29 Glucagon (Glucagon Inj) 1 mg UD PRN SQ 05/04/16 20:30 06/03/16 20:29 Albuterol/ Ipratropium (Duoneb) 3 ml QIDR INH 05/05/16 12:00 06/04/16 11:59 Family History Cancer Diabetes mellitus Heart disease Social History Smoking Status: Current Every Day Smoker Alcohol Use: none Drug Use: none Marital Status: , in relationship Housing Status: lives with significant other Occupation: disabled Review of Systems A complete review of systems was performed. Pertinent positives are noted above. All other systems are negative. Physical Exam Date Time Temp Pulse Resp B/P Pulse Ox O2 Delivery O2 Flow Rate FiO2 05/05/16 07:56 36.7 74 18 90/58 93 Room Air 05/05/16 07:45 96 Room Air 05/05/16 00:05 Room Air 05/04/16 22:48 36.6 71 16 118/81 96 Room Air 05/04/16 21:49 81 16 100/65 96 05/04/16 21:35 81 16 100/65 96 Room Air 05/04/16 20:32 87 15 110/69 96 Room Air 05/04/16 19:16 80 15 103/72 94 Room Air 05/04/16 17:31 80 16 95/59 98 Room Air 05/04/16 15:26 99 Room Air 05/04/16 15:24 36.8 89 16 100/61 97 Room Air GENERAL: Middle-aged male AAA x 3, drowsy, lethargic and chronic ill-appearing , not in any distress. HEENT: Atraumatic, normocephalic. NECK: Supple, no JVD, no carotid bruit appreciated. ENT: No sinus tenderness MOUTH and THROAT: Moist oral mucosa, no oral ulcer or pharyngeal erythema RESPIRATORY: Normal breathing efforts, no accessory muscle use, clear to auscultation bilaterally, no wheezes or rales. CARDIOVASCULAR: S1, S2 normal, rate rhythm regular. ABDOMEN: Soft, nontender, positive bowel sound. MUSCULOSKELETAL: No joint swelling, erythema or tenderness. Normal range of motion. SKIN: No skin rash EXTREMITY: No lower extremity edema NEURO: No gross focal neurological deficit, speech fluent. Laboratory Results Last 24 Hours Test 05/04/16 15:53 05/04/16 17:01 05/04/16 21:34 05/05/16 05:05 Bedside Glucose 100 mg/dl 89 mg/dl White Blood Count 8.64 K/uL 6.97 K/uL Red Blood Count 3.99 M/uL 3.77 M/uL Hemoglobin 12.2 g/dL 11.1 g/dL Hematocrit 36.5 % 34.7 % Mean Corpuscular Volume 91.5 fL 92.0 fL Mean Corpuscular Hemoglobin 30.6 pg 29.4 pg Mean Corpuscular Hemoglobin Concent 33.4 g/dl 32.0 g/dl Platelet Count 91 K/uL 104 K/uL Mean Platelet Volume 12.5 fL 12.2 fL Neutrophils (%) (Auto) 73.7 % 67.9 % Lymphocytes (%) (Auto) 15.5 % 20.2 % Monocytes (%) (Auto) 8.1 % 8.0 % Eosinophils (%) (Auto) 2.2 % 3.0 % Basophils (%) (Auto) 0.3 % 0.6 % Neutrophils # (Auto) 6.36 K/uL 4.73 K/uL Lymphocytes # (Auto) 1.34 K/uL 1.41 K/uL Monocytes # (Auto) 0.70 K/uL 0.56 K/uL Eosinophils # (Auto) 0.19 K/uL 0.21 K/uL Basophils # (Auto) 0.03 K/uL 0.04 K/uL RDW Standard Deviation 52.3 fL 53.1 fL RDW Coefficient of Variation 15.6 % 16.0 % Immature Granulocyte % (Auto) 0.2 % 0.3 % Immature Granulocyte # (Auto) 0.02 K/uL 0.02 K/uL Prothrombin Time 10.5 SECONDS 11.2 SECONDS Prothromb Time International Ratio 1.0 1.0 Activated Partial Thromboplast Time 30.6 SECONDS 31.0 SECONDS Partial Thromboplastin Ratio 1.2 1.2 Sodium Level 139 mmol/L 141 mmol/L Potassium Level 3.6 mmol/L 4.0 mmol/L Chloride Level 97 mmol/L 100 mmol/L Carbon Dioxide Level 32 mmol/L 29 mmol/L Anion Gap 10.0 mmol/L 12.0 mmol/L Blood Urea Nitrogen 13 mg/dl 20 mg/dl Creatinine 3.50 mg/dl 4.50 mg/dl Est Creatinine Clear Calc Drug Dose 29.5 ml/min 22.9 ml/min Estimated GFR () 20.8 15.3 Estimated GFR (Non- 17.9 13.2 BUN/Creatinine Ratio 3.6 4.3 Random Glucose 103 mg/dl 129 mg/dl Calcium Level 8.0 mg/dl 8.1 mg/dl Total Bilirubin 1.4 mg/dl 1.3 mg/dl Direct Bilirubin 0.5 mg/dl 0.4 mg/dl Aspartate Amino Transf (AST/SGOT) 27 U/L 25 U/L Alanine Aminotransferase (ALT/SGPT) 15 U/L 15 U/L Alkaline Phosphatase 153 U/L 138 U/L Ammonia 39.0 umol/L Total Protein 7.3 gm/dl 6.2 gm/dl Albumin 2.4 gm/dl 2.1 gm/dl Magnesium Level 2.3 mg/dl Random Vancomycin Level 22.9 mcg/ml Test 05/05/16 07:45 05/05/16 09:06 Bedside Glucose 117 mg/dl Raudel Harp is a 60-year-old gentlemen with end-stage renal disease on hemodialysis Wednesday, Wednesday, Wednesday, end-stage liver disease, recurrent hospital admission for hepatic encephalopathy admitted to the hospital with change in mental status possibly secondary to pneumonia and started on Vancomycin and aztreonam. He had full dialysis treatment yesterday at outpatient unit as his regular schedule. Currently blood pressure volume status and electrolyte acceptable. He has history of recurrent hospital admission with hepatitic versus us metabolic encephalopathy, history of end-stage liver disease. On admission ammonia level was 39. No leukocytosis. CT scan of head was unremarkable. Recommendations --currently he is electrolyte, volume status and blood pressure acceptable, no indication for acute dialysis. Will Scheduled for dialysis tomorrow as his regular schedule. --hemoglobin stable, hold off on SUE for now -- continue on Nephrocaps daily --dose all medications for GFR less than 10 --avoid nephrotoxic medications Thank you for allowing me to participate in your patient's care. It was a pleasure to see Loyd This chart was completed utilizing AddThis Speech and voice recognition software. Grammatical errors, random word insertions, pronoun errors and incomplete sentences are occasional consequences of this system. Any questions or concerns about the content, text or information contained within the body of this dictation should be addressed directly to the physician for clarification.
[2016-05-05 15:05] VITALS: PULSE 89; O2SAT 93
[2016-05-05 15:09] VITALS: BP 104/65; PULSE 85; TEMP 36.7; O2SAT 93
--- NOTE | 2016-05-05 16:00 | Pharmacy Progress Note ---
Pharmacy Antibiotic Prog Note Date of Service: May 05, 2016. Subjective: The patient is currently receiving Vancomycin per pharmacy consult. The patient is currently on day # 2 of Vancomycin IV therapy. Objective: Height (Feet): 6 Height (Inches): 2.00 Weight (Kilograms): 109.000 Lab Results (24hrs): Laboratory Tests Test 05/04/16 17:01 05/05/16 05:05 BUN/Creatinine Ratio 3.6 4.3 Blood Urea Nitrogen 13 mg/dl 20 mg/dl Creatinine 3.50 mg/dl 4.50 mg/dl White Blood Count 8.64 K/uL 6.97 K/uL Red Blood Count 3.99 M/uL 3.77 M/uL Hemoglobin 12.2 g/dL 11.1 g/dL Hematocrit 36.5 % 34.7 % Mean Corpuscular Volume 91.5 fL 92.0 fL Mean Corpuscular Hemoglobin 30.6 pg 29.4 pg Mean Corpuscular Hemoglobin Concent 33.4 g/dl 32.0 g/dl Platelet Count 91 K/uL 104 K/uL Mean Platelet Volume 12.5 fL 12.2 fL Neutrophils (%) (Auto) 73.7 % 67.9 % Lymphocytes (%) (Auto) 15.5 % 20.2 % Monocytes (%) (Auto) 8.1 % 8.0 % Eosinophils (%) (Auto) 2.2 % 3.0 % Basophils (%) (Auto) 0.3 % 0.6 % Neutrophils # (Auto) 6.36 K/uL 4.73 K/uL Lymphocytes # (Auto) 1.34 K/uL 1.41 K/uL Monocytes # (Auto) 0.70 K/uL 0.56 K/uL Eosinophils # (Auto) 0.19 K/uL 0.21 K/uL Basophils # (Auto) 0.03 K/uL 0.04 K/uL Micro Results: Item Value Date Time Est Creatinine Clear Calc Drug Dose 34.6 ml/min 02/28/15 1831 Random Vancomycin Level 22.9 mcg/ml 05/05/16 0505 Recent Pertinent Medications: Item Value Date Time Aztreonam 250 mg/ 102.5 ml @ 100 mls/hr 05/05/16 0200 Dextrose Q8H/IV 05/05/16 0911 Assessment & Plan: Patient is ESRD patient on Hemodialysis. He was given a loading dose of Vancomycin 1600mg IV upon admission and this mornings random level was 22.9mcg/ ml. He has HD session scheduled for tomorrow. I ordered another random Vancomycin level with AM labs tomorrow. We will assess based on this level and him receiving HD tomorrow. Pharmacy will continue to follow and will adjust dose/frequency as necessary. Thank you
[2016-05-05 19:01] VITALS: PULSE 77; O2SAT 94
[2016-05-05] MEDS: NADOLOL 40 MG TAB PO SCH (19:52)
[2016-05-05] MEDS: DULOXETINE HCL 60 MG CAP PO SCH (19:52)
[2016-05-06] VITALS (25 sets, daily range): BP systolic 77–104; BP diastolic 39–74; PULSE 41–79; TEMP 36.3–36.7; O2SAT 94–96
[2016-05-06] MEDS: AZTREONAM IV 250 MG in DEXTROSE 5% 100ML 100 ML IV SCH ×3 (02:01→19:31)
[2016-05-06] MEDS: LEVOTHYROXINE 25 MCG TAB PO SCH (05:47)
[2016-05-06 06:16] LABS: MEAN CELL VOLUME 93.1 fL (80-100); MEAN CORPUSCULAR HEMOGLOBIN 29.5 pg (25-34); MEAN CORPUSCULAR HGB CONC 31.7 g/dl (32-36); PLATELET COUNT 102 K/uL (130-400); RED BLOOD COUNT 3.76 M/uL (4.7-6.1); WHITE BLOOD COUNT 8.43 K/uL (4.8-10.8)
[2016-05-06 06:29] LABS: PARTIAL THROMBOPLASTIN RATIO 1.2
[2016-05-06 06:39] LABS: BASO % 0.5 %; BASO ABS # 0.04 K/uL (0-0.2); COMPLETE YES; EOS % 3.3 %; IG% 0.2 %; LYMPH % 19.8 %; LYMPH ABS # 1.67 K/uL (1.2-3.4); MONO % 8.3 %; NEUT % 67.9 %
[2016-05-06 06:56] LABS: BUN/CREATININE RATIO 5.8 (10-20); CALCIUM 7.9 mg/dl (8.5-10.1); MAGNESIUM 2.7 mg/dl (1.8-2.4); POTASSIUM 4.1 mmol/L (3.5-5.1)
[2016-05-06] MEDS: OXYCODONE HCL IR 5 MG TAB (IMMEDIATE RELEASE) PO PRN ×2 (07:21→22:23)
[2016-05-06] MEDS: ALBUT/IPRATROP 3MG/0.5MG NEB 3 ML VIAL INH SCH ×4 (07:24→19:29)
[2016-05-06] MEDS: PANTOprazole SOD 40 MG TAB PO SCH ×2 (08:22→19:33)
[2016-05-06] MEDS: NEPHROCAPS PO SCH (08:23)
[2016-05-06] MEDS: LACTULOSE SYRUP 20 GM/30 ML UDC PO SCH ×3 (08:23→19:31)
[2016-05-06] MEDS: CALCIUM ACETATE 667MG GELCAP PO SCH ×3 (08:23→19:31)
[2016-05-06] MEDS: CHOLECALCIFEROL 1000 INTER.UNIT TAB PO SCH (08:23)
[2016-05-06] MEDS: RIFAXIMIN TAB 550 MG TAB PO SCH ×2 (08:23→19:32)
[2016-05-06] MEDS: PREGABALIN 75 MG CAP PO SCH (08:29)
[2016-05-06] MEDS: INSULIN ASPART 100 UNITS/ML 3 ML PEN SC SCH ×4 (08:33→21:02)
--- NOTE | 2016-05-06 09:00 | Progress Note ---
Subjective Date of Service: May 06, 2016. Subjective Pt evaluation today including: conversation w/ patient, conversation w/ family , physical exam, chart review, lab review, review of studies, review of inpatient medication list Totally back to normal, he talks , speak full sentence, eating breakfast, conversation with his family over the phone, no more confusion No other complaining Problem List Medical Problems: (1) Acute kidney injury Status: Acute (2) Acute renal failure Status: Acute (3) Altered mental status Status: Chronic (4) Anemia Status: Acute (5) CHF (congestive heart failure) Status: Acute (6) Chronic kidney disease Status: Acute (7) Confusion Status: Acute (8) COPD exacerbation Status: Acute (9) Drowsiness Status: Acute (10) Elevated bilirubin Status: Acute (11) End stage renal disease Status: Acute (12) Fall Status: Acute (13) Headache Status: Acute (14) Hyperammonemia Status: Acute (15) Hyperammonemia Status: Acute (16) Hyperammonemia Status: Acute (17) Hyperammonemia Status: Acute (18) Hypotension Status: Acute (19) Increased ammonia level Status: Acute (20) Increased ammonia level Status: Acute (21) Increased ammonia level Status: Acute (22) Left acetabular fracture Status: Acute (23) Metabolic encephalopathy Status: Acute (24) Opacity of lung on imaging study Status: Acute (25) Opioid overdose Status: Acute (26) Pleural effusion Status: Acute (27) Pneumonia Status: Acute (28) Renal failure Status: Acute (29) Sepsis Status: Acute (30) Severe sepsis with acute organ dysfunction Status: Acute (31) Stroke Status: Acute (32) Urinary tract infection Status: Acute Review of Systems Constitutional: + fatigue, + weakness, No chills, No fever, No problem reported , No sweats, No weight loss Eyes: No diplopia, No discharge, No eye pain, No redness, No worsening of vision ENT: No dental problems, No hearing loss, No nasal symptoms, No sore throat, No tinnitus, No trouble swallowing, No unusual epistaxis Respiratory: + cough (occasional dry cough), No dyspnea at rest, No dyspnea on exertion, No hemoptysis, No shortness of breath, No sputum, No wheezing Cardiac: No PND, No chest pain, No claudication, No edema, No orthopnea, No palpitations Abdomen: No constipation, No diarrhea, No nausea, No pain, No vomiting Musculoskeletal: No calf pain, No joint pain, No muscle pain, No swelling Male : No dysuria, No hematuria, No incontinence, No nocturia more than once/ night, No slowing stream, No urinary frequency Neurologic: No balance problems, No memory loss, No numbness/tingling, No paralysis, No vertigo, No weakness Psychiatric: No anhedonism, No anxiety, No depression symptoms, No insomnia, No substance abuse Heme: No abnormal bleeding/bruising, No clotting problems, No night sweats, No swollen lymph nodes Endo: No excessive thirst, No excessive urination, No fatigue Skin: No bleeding, No color change, No itch, No new/changing skin lesions, No rash Objective Vital Signs Date Time Temp Pulse Resp B/P Pulse Ox O2 Delivery O2 Flow Rate FiO2 05/06/16 07:45 36.3 66 18 96/59 96 Room Air 05/06/16 07:24 66 18 95 Room Air 05/06/16 01:02 36.7 79 18 94/63 95 Room Air 05/06/16 00:20 Room Air 05/05/16 19:01 77 18 94 Room Air 05/05/16 16:00 Room Air 05/05/16 15:09 36.7 85 18 104/65 93 Room Air 05/05/16 15:05 89 18 93 Room Air Physical Exam General Appearance: WD/WN, no apparent distress, + pertinent finding (chronic ill-looking, but is in his baseline) Eyes: normal inspection, PERRL, EOMI, sclerae normal ENT: normal ENT inspection, hearing grossly normal, pharynx normal Neck: supple, no adenopathy, thyroid normal, no JVD, no carotid bruits, trachea midline Respiratory/Chest: chest non-tender, lungs clear, normal breath sounds, no respiratory distress, no accessory muscle use Cardiovascular: regular rate, rhythm, no edema, no gallop, no JVD, no murmur Abdomen: normal bowel sounds, non tender, soft, no organomegaly, no pulsatile mass Extremities: normal range of motion, non-tender, normal inspection, no pedal edema, no calf tenderness, normal capillary refill, pelvis stable, + swelling (1 +) Neurologic/Psychiatric: secretary specialist II-XII nml as tested, no motor/sensory deficits, alert, normal mood/affect, oriented x 3 Skin: normal color, warm/dry, no rash Lymphatic: no adenopathy Laboratory Results Last 24 Hours Test 05/05/16 09:25 05/05/16 11:22 05/05/16 16:45 05/05/16 19:39 Arterial Blood pH 7.51 Arterial Blood Partial Pressure CO2 37 mmHg Arterial Blood Partial Pressure O2 62 mm/Hg Arterial Blood HCO3 28 mmol/L Arterial Blood Oxygen Saturation 90.7 % Arterial Blood Base Excess 5.1 mEq/L Arterial Blood Gas Delivery ROOM AIR Salo Test POS Bedside Glucose 125 mg/dl 146 mg/dl 179 mg/dl Test 05/06/16 05:45 05/06/16 07:39 White Blood Count 8.43 K/uL Red Blood Count 3.76 M/uL Hemoglobin 11.1 g/dL Hematocrit 35.0 % Mean Corpuscular Volume 93.1 fL Mean Corpuscular Hemoglobin 29.5 pg Mean Corpuscular Hemoglobin Concent 31.7 g/dl Platelet Count 102 K/uL Mean Platelet Volume 12.0 fL Neutrophils (%) (Auto) 67.9 % Lymphocytes (%) (Auto) 19.8 % Monocytes (%) (Auto) 8.3 % Eosinophils (%) (Auto) 3.3 % Basophils (%) (Auto) 0.5 % Neutrophils # (Auto) 5.72 K/uL Lymphocytes # (Auto) 1.67 K/uL Monocytes # (Auto) 0.70 K/uL Eosinophils # (Auto) 0.28 K/uL Basophils # (Auto) 0.04 K/uL RDW Standard Deviation 54.4 fL RDW Coefficient of Variation 16.4 % Immature Granulocyte % (Auto) 0.2 % Immature Granulocyte # (Auto) 0.02 K/uL Red Blood Cell Morphology Unremarkable Prothrombin Time 11.0 SECONDS Prothromb Time International Ratio 1.0 Activated Partial Thromboplast Time 31.8 SECONDS Partial Thromboplastin Ratio 1.2 Sodium Level 141 mmol/L Potassium Level 4.1 mmol/L Chloride Level 101 mmol/L Carbon Dioxide Level 29 mmol/L Anion Gap 11.0 mmol/L Blood Urea Nitrogen 41 mg/dl Creatinine 7.00 mg/dl Est Creatinine Clear Calc Drug Dose 14.8 ml/min Estimated GFR () 9.0 Estimated GFR (Non- 7.7 BUN/Creatinine Ratio 5.8 Random Glucose 112 mg/dl Calcium Level 7.9 mg/dl Magnesium Level 2.7 mg/dl Total Bilirubin 1.6 mg/dl Direct Bilirubin 0.5 mg/dl Aspartate Amino Transf (AST/SGOT) 24 U/L Alanine Aminotransferase (ALT/SGPT) 15 U/L Alkaline Phosphatase 142 U/L Total Protein 6.3 gm/dl Albumin 2.2 gm/dl Random Vancomycin Level 17.9 mcg/ml Bedside Glucose 94 mg/dl Assessment and Plan 60-year-old admitted because of altered mental status post dialysis on 05/04/2016 Altered mental status, differential is primarily that of urinary system infection versus excessive fluid removal. Possible has sepsis Has been on empirically on vancomycin IV and aztreonam IV. urine cultures and blood cultures were not sent upon admission He has a known end-stage liver disease, liver cirrhosis, he has multiple admissions because of hepatic encephalopathy, however the ammonia level is within normal range upon admission He has history of COPD, in the physical exam he has no difficulty breathing, do not need oxygen, but in the lung examination has some wheezing and decreased breathing sounds, checked ABG yesterday, was no obvious hypoxia , or hypercapnia Continue to will nap as ordered End-stage renal disease on hemodialysis, renal consulted Hepatitis C with history of hepatic encephalopathy--relatively low ammonia level. Continue lactulose 60 mg by mouth 3 times a day baseline dose. Diabetes mellitus--hold Lantus insulin 8 units subcutaneous daily until patient has good oral intake. Continue Accu-Cheks before meals and at bedtime with NovoLog coverage. Hypothyroidism continue levothyroxine sodium 25 g by mouth daily. Depression--continue duloxetine 60 mg by mouth at bedtime. Asthma--continue Advair discus 500/50 one inhalation twice a day, and albuterol HFA 2 puffs 4 times a day when necessary. Discharge plan We'll continue IV antibiotics for today, continue dialysis in the afternoon Possible can discharge home tomorrow morning Patient has multiple medical conditions, two end-stage organ failure which include kidney failure and the liver failure, he has significant medicine noncompliance issues, he has refused multiple times of recommendation to rehabilitation or [facility], He is in high risk of readmission, I talked to patient and his again today about recommendation to [facility] or rehabilitation if needed, they totally declined. I know he is high risk of readmission but I cannot do anything better to prevent his readmission. I did told them to follow up with family doctors more closely, I did counseling him about his medical conditions, which need to take all medicine with compliance, and doing the dialysis as ordered. DVT ppx: heparin, Teds, scds CODE STATUS: DNR, Continued [facility] stay due to: multiple IV medications needed Discharge planning: home
--- NOTE | 2016-05-06 10:14 | Nephrology Progress Note ---
Nephrology Progress Note Date of Service May 06, 2016. Chief Complaint F/U for ESRD Vamshi Harp was seen and examined this am. He was awake, alert , asymptomatic and answers questions appropriately. Review of Systems A complete review of systems was performed. Pertinent positives are noted above. All other systems are negative. Vital Signs Last 8 Hrs Date Time Temp Pulse Resp B/P Pulse Ox O2 Delivery O2 Flow Rate FiO2 05/06/16 07:45 36.3 66 18 96/59 96 Room Air 05/06/16 07:24 66 18 95 Room Air 05/06/16 01:02 36.7 79 18 94/63 95 Room Air 05/06/16 00:20 Room Air I & O 24-Hour Column 05/06/16 08:00 Intake Total 310 ml Balance 310 ml Last Recorded Weight Weight (Kilograms): 110.100 Physical Exam GENERAL: middle aged male, lethagric, ill-appearing, not in any distress. NECK: Supple, no JVD. RESPIRATORY: Normal breathing efforts, no accessory muscle use, clear to auscultation bilaterally, no wheezes or rales. CARDIOVASCULAR: S1, S2 normal, rate rhythm regular. EXTREMITY: No lower extremity edema NEURO: speech fluent. PSYCHIATRY: Normal mood and judgment Family History Cancer Diabetes mellitus Heart disease Social History Smoking Status: Current every day smoker Alcohol Use: none Drug Use: none Marital Status: , in relationship Housing Status: lives with significant other Occupation: disabled Laboratory Results Past 24 Hours 05/06/16 05:45 Red Blood Count 3.76, Mean Corpuscular Volume 93.1, Mean Corpuscular Hemoglobin 29.5, Mean Corpuscular Hemoglobin Concent 31.7, Mean Platelet Volume 12.0, Neutrophils (%) (Auto) 67.9, Lymphocytes (%) (Auto) 19.8, Monocytes (%) (Auto) 8.3, Eosinophils (%) (Auto) 3.3, Basophils (%) (Auto) 0.5, Neutrophils # (Auto) 5.72, Lymphocytes # (Auto) 1.67, Monocytes # (Auto) 0.70, Eosinophils # (Auto) 0.28, Basophils # (Auto) 0.04 05/06/16 05:45 Test 05/05/16 09:25 05/05/16 11:22 05/05/16 16:45 05/05/16 19:39 Arterial Blood pH 7.51 (7.35-7.45) Arterial Blood Partial Pressure CO2 37 mmHg (35-46) Arterial Blood Partial Pressure O2 62 mm/Hg (80-95) Arterial Blood HCO3 28 mmol/L (19-24) Arterial Blood Oxygen Saturation 90.7 % (90-95) Arterial Blood Base Excess 5.1 mEq/L (-9-1.8) Arterial Blood Gas Delivery ROOM AIR Salo Test POS (POS) Bedside Glucose 125 mg/dl (70-99) 146 mg/dl (70-99) 179 mg/dl (70-99) Test 05/06/16 05:45 05/06/16 07:39 White Blood Count 8.43 K/uL (4.8-10.8) Red Blood Count 3.76 M/uL (4.7-6.1) Hemoglobin 11.1 g/dL (14.0-18.0) Hematocrit 35.0 % (42-52) Mean Corpuscular Volume 93.1 fL (80-100) Mean Corpuscular Hemoglobin 29.5 pg (25-34) Mean Corpuscular Hemoglobin Concent 31.7 g/dl (32-36) Platelet Count 102 K/uL (130-400) Mean Platelet Volume 12.0 fL (7.4-10.4) Neutrophils (%) (Auto) 67.9 % Lymphocytes (%) (Auto) 19.8 % Monocytes (%) (Auto) 8.3 % Eosinophils (%) (Auto) 3.3 % Basophils (%) (Auto) 0.5 % Neutrophils # (Auto) 5.72 K/uL (1.4-6.5) Lymphocytes # (Auto) 1.67 K/uL (1.2-3.4) Monocytes # (Auto) 0.70 K/uL (0.11-0.59) Eosinophils # (Auto) 0.28 K/uL (0-0.5) Basophils # (Auto) 0.04 K/uL (0-0.2) RDW Standard Deviation 54.4 fL (36.4-46.3) RDW Coefficient of Variation 16.4 % (11.5-14.5) Immature Granulocyte % (Auto) 0.2 % Immature Granulocyte # (Auto) 0.02 K/uL (0.00-0.02) Red Blood Cell Morphology Unremarkable Prothrombin Time 11.0 SECONDS (9.0-12.0) Prothromb Time International Ratio 1.0 (0.9-1.1) Activated Partial Thromboplast Time 31.8 SECONDS (21.0-31.0) Partial Thromboplastin Ratio 1.2 Anion Gap 11.0 mmol/L (3-11) Est Creatinine Clear Calc Drug Dose 14.8 ml/min Estimated GFR () 9.0 Estimated GFR (Non- 7.7 BUN/Creatinine Ratio 5.8 (10-20) Calcium Level 7.9 mg/dl (8.5-10.1) Magnesium Level 2.7 mg/dl (1.8-2.4) Total Bilirubin 1.6 mg/dl (0.2-1) Direct Bilirubin 0.5 mg/dl (0-0.2) Aspartate Amino Transf (AST/SGOT) 24 U/L (15-37) Alanine Aminotransferase (ALT/SGPT) 15 U/L (12-78) Alkaline Phosphatase 142 U/L (45-117) Total Protein 6.3 gm/dl (6.4-8.2) Albumin 2.2 gm/dl (3.4-5.0) Random Vancomycin Level 17.9 mcg/ml Bedside Glucose 94 mg/dl (70-99) Allergies Coded Allergies: Cephalexin (Verified Allergy, Severe, ANAPHYLAXIS, 05/04/16) Acetaminophen (Verified Adverse Reaction, Mild, D/T LIVER, 05/04/16) Medications Current Inpatient Medications Medications (Trade) Dose Ordered Sig/Clarice Route Start Time Stop Time Status Last Admin Dose Admin Aztreonam/Dextrose (Azactam IV/D5 100ml) 102.5 ml @ 100 mls/hr Q8H IV 05/05/16 02:00 05/15/16 01:59 05/06/16 02:01 100 MLS/HR Vancomycin HCl (Consult) 1 ea UD PRN N/A 05/04/16 19:15 06/03/16 19:14 Aztreonam (Consult) 1 ea UD PRN N/A 05/04/16 19:15 06/03/16 19:14 Zolpidem Tartrate (Ambien Tab) 5 mg HSZ PRN PO 05/04/16 20:30 06/03/16 20:29 05/04/16 23:51 5 MG Calcium Acetate (Phoslo Cap) 667 mg TIDM PO 05/05/16 08:00 06/04/16 07:59 05/05/16 18:17 667 MG Cholecalciferol (Vitamin D Tab) 1,000 inter.unit DAILY PO 05/05/16 08:00 06/04/16 08:59 05/05/16 08:00 1,000 INTER.UNIT Duloxetine HCl (Cymbalta Cap) 60 mg HS PO 05/04/16 21:00 06/03/16 20:59 05/05/16 19:52 60 MG Lactulose (Chronulac Syrup) 60 gm TID PO 05/04/16 22:00 06/03/16 21:59 05/05/16 19:52 60 GM Levothyroxine Sodium (Synthroid Tab) 25 mcg DAILYBB PO 05/05/16 06:30 06/04/16 06:29 05/06/16 05:47 25 MCG Nadolol (Corgard Tab) 10 mg HS PO 05/04/16 21:00 06/03/16 20:59 05/05/16 19:52 10 MG Oxycodone HCl (Roxicodone Immediate Rel Tab) 5 mg Q4H PRN PO 05/04/16 20:30 05/18/16 20:29 05/06/16 07:21 5 MG Pregabalin (Lyrica Cap) 75 mg DAILY PO 05/05/16 08:00 06/04/16 08:59 05/05/16 08:04 75 MG Rifaximin (Xifaxan Tab) 550 mg BID PO 05/04/16 21:00 06/03/16 20:59 05/05/16 19:52 550 MG Vitamin B Complex/ Vit C/Folic Acid (Nephrocaps) 1 cap DAILY PO 05/05/16 08:00 06/04/16 08:59 05/05/16 08:01 1 CAP Pantoprazole Sodium (Protonix Tab) 40 mg BID PO 05/04/16 22:00 06/03/16 21:59 05/05/16 19:52 40 MG Ondansetron HCl (Zofran Inj) 4 mg Q6H PRN IV 05/04/16 20:30 06/03/16 20:29 Insulin Aspart (novoLOG ASPART) SLIDING SCALE If C... ACHS SC 05/04/16 21:00 06/03/16 20:59 05/05/16 19:56 1 UNITS Glucose (Glucose 40% Gel) UD PRN PO 05/04/16 20:30 06/03/16 20:29 Glucose (Glucose Chew Tab) 1 tabs UD PRN PO 05/04/16 20:30 06/03/16 20:29 Dextrose (Dextrose 50% 50ML Syringe) 50 ml UD PRN IV 05/04/16 20:30 06/03/16 20:29 Glucagon (Glucagon Inj) 1 mg UD PRN SQ 05/04/16 20:30 06/03/16 20:29 Albuterol/ Ipratropium (Duoneb) 3 ml QIDR INH 05/05/16 12:00 06/04/16 11:59 05/06/16 07:24 3 ML Impression Loyd is a 60-year-old gentlemen with end-stage renal disease on hemodialysis Wednesday, Wednesday, Wednesday, end-stage liver disease, recurrent hospital admission for hepatic encephalopathy admitted to the hospital with change in mental status possibly secondary to pneumonia and started on Vancomycin and aztreonam. He had full dialysis treatment yesterday at outpatient unit as his regular schedule. Currently blood pressure volume status and electrolyte acceptable. He has history of recurrent hospital admission with hepatitic versus us metabolic encephalopathy, history of end-stage liver disease. On admission ammonia level was 39. No leukocytosis. CT scan of head was unremarkable. Recommendations --hemodialysis as his regular schedule this afternoon. --hemoglobin stable, hold off on SUE for now -- continue on Nephrocaps daily --dose all medications for GFR less than 10 --avoid nephrotoxic medications This chart was completed utilizing [employer] Speech and voice recognition software. Grammatical errors, random word insertions, pronoun errors and incomplete sentences are occasional consequences of this system. Any questions or concerns about the content, text or information contained within the body of this dictation should be addressed directly to the physician for clarification.
[2016-05-06 15:22] LABS: HEPATITIS B AB POS
[2016-05-06] MEDS: NADOLOL 40 MG TAB PO SCH (19:32)
[2016-05-06] MEDS: DULOXETINE HCL 60 MG CAP PO SCH (19:33)
[2016-05-07] MEDS: AZTREONAM IV 250 MG in DEXTROSE 5% 100ML 100 ML IV SCH ×2 (02:04→11:05)
[2016-05-07] MEDS: OXYCODONE HCL IR 5 MG TAB (IMMEDIATE RELEASE) PO PRN (03:39)
[2016-05-07 06:00] LABS: HEMATOCRIT 36.2 % (42-52); MEAN CELL VOLUME 92.6 fL (80-100); MEAN CORPUSCULAR HEMOGLOBIN 29.4 pg (25-34); MEAN CORPUSCULAR HGB CONC 31.8 g/dl (32-36); MEAN PLATELET VOLUME 12.5 fL (7.4-10.4); PLATELET COUNT 105 K/uL (130-400); RED BLOOD COUNT 3.91 M/uL (4.7-6.1); WHITE BLOOD COUNT 7.52 K/uL (4.8-10.8)
[2016-05-07 06:07] LABS: PARTIAL THROMBOPLASTIN RATIO 1.2; PROTHROMBIN TIME (PATIENT) 10.8 SECONDS (9.0-12.0)
[2016-05-07 06:26] LABS: BASO % 0.7 %; BASO ABS # 0.05 K/uL (0-0.2); COMPLETE YES; EOS % 4.5 %; IG% 0.3 %; LYMPH % 20.7 %; LYMPH ABS # 1.56 K/uL (1.2-3.4); MONO % 8.4 %; NEUT % 65.4 %; POLYCHROMASIA 1+
[2016-05-07] MEDS: LEVOTHYROXINE 25 MCG TAB PO SCH (06:29)
[2016-05-07 06:34] LABS: BUN/CREATININE RATIO 4.5 (10-20); CREATININE 4.6 mg/dl (0.60-1.40); MAGNESIUM 2.4 mg/dl (1.8-2.4); POTASSIUM 3.9 mmol/L (3.5-5.1)
[2016-05-07 07:36] VITALS: PULSE 78; O2SAT 93
[2016-05-07] MEDS: ALBUT/IPRATROP 3MG/0.5MG NEB 3 ML VIAL INH SCH ×2 (07:36→11:25)
[2016-05-07 07:47] VITALS: BP 93/59; PULSE 73; TEMP 36.6; O2SAT 91
[2016-05-07] MEDS: LACTULOSE SYRUP 20 GM/30 ML UDC PO SCH (08:10)
[2016-05-07] MEDS: NEPHROCAPS PO SCH (08:10)
[2016-05-07] MEDS: RIFAXIMIN TAB 550 MG TAB PO SCH (08:10)
[2016-05-07] MEDS: CHOLECALCIFEROL 1000 INTER.UNIT TAB PO SCH (08:10)
[2016-05-07] MEDS: CALCIUM ACETATE 667MG GELCAP PO SCH (08:10)
[2016-05-07] MEDS: PANTOprazole SOD 40 MG TAB PO SCH (08:10)
[2016-05-07] MEDS: PREGABALIN 75 MG CAP PO SCH (08:22)
[2016-05-07] MEDS ORDERED: LEVO250T47 PO (08:44)
--- NOTE | 2016-05-07 08:44 | Discharge Instructions ---
Discharge Instructions Admission Reason for Admission: Altered Mental Status, Esrd Discharge Discharge Diagnosis / Problem: possible metabolic encephalopathy, secondary to pneumonia or UTI Discharge Goals Goal(s): Decrease discomfort, Improve function, Increase independence, Improve disease control, Improve nutritional status, Learn about illness, Diagnostic testing, Therapeutic intervention, Prevent Disease Progression, Specific goals Activity Recommendations Activity Limitations: resume your previous activity Lifting Limitations: none Exercise/Sports Limitations: none May Resume Sexual Activity: when tolerated Shower/Bathe: no limitations . Instructions / Follow-Up Instructions / Follow-Up you was admitted because of Altered mental status, possible secondary to pneumonia or UTI , or else such as excessive fluid removal. Possible has sepsis upon admission Has been on empirically treated on vancomycin IV and aztreonam IV, you are improving significantly I will give you Levaquin for 7 days more for possible pneumonia You may have other reasons cause altered mental status and confusion such as : end-stage liver disease, liver cirrhosis, hepatic encephalopathy, however the ammonia level is within normal range upon admission You have history of COPD, You need to take medication as instructed, and DuoNeb treatment as instructed the left ventral part of the fore-foot has 5x5mm skin opening and it is chronic wound, with minimal clean drainage, I recommend you to continue follow- up with wound care - you need to follow up with your primary care physician in 1 week, - take medication as instructed, never overdose or any misuse, or take with alcohol, because misuse of medicine may cause organ damage or , call your primary care physician if have questions of medicaitons. - call your primary care physician OR go to local emergency room if has any fever/chill, chest pain, shortness of breathing, nausea/vomiting/abdominal pain , facial droop/slurry speech/local weakness, or if has any questions. - fall precaution - diet as instructed - you need to follow up with your subspecialist , such as continue dialysis with dough mixer - you should understand that it is important to follow up the above instruction , and "not following the above instruction" may cause delayed or missed care of your medical conditions which may cause permanent organ damage and even . Current Hospital Diet Patient's current hospital diet: Renal Diet, Diabetes Type 2 Diet Discharge Diet Recommended Diet: Diabetes Type 2 Diet Pending Studies Studies pending at discharge: no Medical Emergencies . Who to Call and When: Medical Emergencies: If at any time you feel your situation is an emergency, please call 911 immediately. . Non-Emergent Contact Non-Emergency issues call your: Primary Care Provider, Neurologist . . "Provider Documentation" section prepared by [employer] VTE Core Measure Inpt VTE Proph given/why not?: SCD's, Contraindicated (no heparin product because of chronic thrombocytopenia)
--- NOTE | 2016-05-07 09:11 | Discharge Summary ---
Discharge Summary Admission Date: May 04, 2016 at 20:22 Discharge Date: May 07, 2016 Principal Diagnosis: ltered mental status possible from pneumonia Problems/Secondary Diagnoses: Possible has sepsis end-stage liver disease, liver cirrhosis, history of hepatic encephalopathy, h history of COPD, chronic left for foot wound no infection possible pneumonia (1) Altered mental status Status: Chronic Immunizations: Have You Had Influenza Vaccine: Yes Influenza Vaccine Date: Dec 07, 2012 History of Tetanus Vaccine?: Unknown Tetanus Immunization Date: Nov 13, 2010 History of Pneumococcal: Yes Pneumococcal Date: Feb 11, 2012 History of Hepatitis B Vaccine: IN PROGRESS HAS HAD 2 SHOTS Hepatitis Immunization Date: Dec 07, 2012 Consultations: Nephrology Medication Reconciliation New Medications: Levofloxacin (Levaquin) 250 Mg Tab 250 MG PO DAILY for 7 Days, TAB Continued Medications: Albuterol Sulf (Albuterol Sulfate) 2.5 Mg/0.5 Ml Nebu 5 MG INH UD LIST STATES 5MG/ML DIRECTED Calcium Acetate (Phoslo 667 Mg) 667 Mg Cap 667 MG PO TIDM Cholecalciferol (Vitamin D3) 1,000 Inter.unit Tab 1000 INTER.UNIT PO DAILY Duloxetine HCl (Cymbalta) 60 Mg Cap 60 MG PO HS Fluticasone Prop/Salmeterol (Advair Diskus 500/50 60 Dose) 1 Ea Aerp 1 PUFF INH BID, INHALER Insulin Aspart (Novolog Flexpen) Unknown Strength Inj 1 DOSE SQ AC Insulin Glargine (Lantus Solostar Pen) 100 Unit/ Inj 8 UNITS SC DAILY@2100 Insulin Lispro (Human) (Humalog Kwikpen) 200 Unit/Ml Inj 1 DOSE SQ DIRECTED Lactulose (Constulose) 10 Gm/15 Ml Mena 90 ML PO TID Levothyroxine Sodium (Synthroid) 25 Mcg Tab 25 MG PO DAILY Midodrine Hcl (Midodrine Hcl) 10 Mg Tab 10 MG PO 3XWK BEFORE DIALYSIS Nadolol (Corgard) 20 Mg Tab 10 MG PO HS, TAB Omeprazole (Prilosec) 20 Mg Cap 20 MG PO BID Oxycodone Ir (Roxicodone Ir) 5 Mg Tab 5 MG PO Q4H PRN for Pain Pregabalin (Lyrica) 75 Mg Cap 75 MG PO DAILY Rifaximin (Xifaxan) 550 Mg Tab 550 MG PO BID, TAB Vitamin B Cmplx/Vitc/Folic Ac (Nephrocaps) Cap 1 CAP PO DAILY, CAP Discharge Exam Sitting up in chair, conversational, pleasant, no complaining, reported the left forefoot wound has been follow-up with the wound care Review of Systems: Constitutional: + fatigue, + weakness, No chills, No fever, No problem reported, No sweats, No weight loss Eyes: No diplopia, No discharge, No eye pain, No problem reported, No redness, No worsening of vision ENT: No dental problems, No hearing loss, No nasal symptoms, No problem reported, No sore throat, No tinnitus, No trouble swallowing, No unusual epistaxis Respiratory: + cough (occasional), No dyspnea at rest, No dyspnea on exertion, No hemoptysis, No problem reported, No shortness of breath, No sputum , No wheezing Cardiovascular: No PND, No chest pain, No claudication, No edema, No orthopnea, No palpitations, No problem reported Abdomen: No GI bleeding, No constipation, No diarrhea, No nausea, No pain, No problem reported, No vomiting Musculoskeletal: No calf pain, No joint pain, No muscle pain, No problem reported, No swelling Genitourinary - Male: No dysuria, No hematuria, No impotence, No lesions, No penile discharge, No problem reported, No urinary frequency, No urinary hesitancy, No urinary incontinence, No urinary retention, No urinary urgency Neurologic: No balance problems, No memory loss, No numbness/tingling, No paralysis, No problem reported, No vertigo, No weakness Psychiatric: No anhedonism, No anxiety, No depression symptoms, No insomnia , No problem reported, No substance abuse Endocrine: + fatigue Hematologic / Lymphatic: No abnormal bleeding/bruising, No clotting problems , No night sweats, No problem reported, No swollen lymph nodes Integumentary: + problem reported (see above) Physical Exam: General Appearance: WD/WN, no apparent distress, + pertinent finding (in baseline) Eyes: normal inspection, PERRL, EOMI ENT: normal ENT inspection, hearing grossly normal Neck: supple, no adenopathy Respiratory/Chest: chest non-tender, + decreased breath sounds, + wheezing ( sporatic) Cardiovascular: regular rate, rhythm, no edema, no gallop, no JVD Abdomen / GI: normal bowel sounds, non tender, soft, no organomegaly Extremities: normal inspection, no calf tenderness, normal capillary refill Neurologic/Psychiatric: adjuster piano action II-XII nml as tested, no motor/sensory deficits , alert, normal mood/affect, normal reflexes, oriented x 3 Skin: + pertinent finding (left ventral part of the fore-foot has 5x5mm skin opening and it is chronic wound, with minimal clean drainage, it is a chronci wound, the area has no swelling, red, or tender) Hospital Course 60-year-old admitted because of altered mental status post dialysis on 05/04/2016 : Stable, improved every day, now is totally resolved, mentally in his baseline Altered mental status, resolved differential is primarily possible pneumonia , or urinary system infection versus excessive fluid removal., He used to be in lower side of blood pressure after dialysis Possible has sepsis Has been on empirically on vancomycin IV and aztreonam IV upon admission urine cultures and blood cultures were not sent upon admission, it is no meaning for me to send them after patient was admitted and he has been on antibiotics He has a known end-stage liver disease, liver cirrhosis, he has multiple admissions because of hepatic encephalopathy, however the ammonia level is within normal range upon admission, is continue to be stable He has history of COPD, in the physical exam he has no difficulty breathing, do not need oxygen, but in the lung examination has some wheezing and decreased breathing sounds, I feel he is in his baseline of this conditions checked ABG , no obvious hypoxia or hypercapnia, End-stage renal disease on hemodialysis, renal consulted, stable Hepatitis C with history of hepatic encephalopathy--relatively low ammonia level. Continue lactulose 60 mg by mouth 3 times a day baseline dose. Continue to stable Diabetes mellitus--hold Lantus insulin 8 units subcutaneous daily until patient has good oral intake. Continue stable Continue Accu-Cheks before meals and at bedtime with NovoLog coverage. Hypothyroidism continue levothyroxine sodium 25 g by mouth daily. Continue stable Depression--continue duloxetine 60 mg by mouth at bedtime. Continue stable Asthma--continue Advair discus 500/50 one inhalation twice a day, and albuterol HFA 2 puffs 4 times a day when necessary. Continue stable Discharge plan has been on IV antibiotics for 3 days since admission, he continues no fever and chill, no mental status changes, blood pressure stable, no any other complaint, continue dialysis I feel his mental status changes is because of possible pneumonia (most likely) , is improved and resolving, will give 7 days more of Levaquin, the reason I give Levaquin is because he is allergic to Keflex discharge home today Patient has multiple medical conditions, two end-stage organ failure which include kidney failure and the liver failure, he has significant medicine noncompliance issues, he has refused multiple times of recommendation to rehabilitation or [facility], He is in high risk of readmission, I talked to patient and his again today about recommendation to [facility] or rehabilitation if needed, they totally declined. I know he is high risk of readmission but I cannot do anything better to prevent his readmission. I told him again to follow up with family doctors more closely, I did counseling him about his medical conditions, which need to take all medicine with compliance, and doing the dialysis as ordered. DVT ppx: No heparin per duct because of chronic thrombocytopenia CODE STATUS: DNR, this was confirmed with the again Instructions / Follow-Up you was admitted because of Altered mental status, possible secondary to pneumonia or UTI , or else such as excessive fluid removal. Possible has sepsis upon admission Has been on empirically treated on vancomycin IV and aztreonam IV, you are improving significantly I will give you Levaquin for 7 days more for possible pneumonia You may have other reasons cause altered mental status and confusion such as : end-stage liver disease, liver cirrhosis, hepatic encephalopathy, however the ammonia level is within normal range upon admission You have history of COPD, You need to take medication as instructed, and DuoNeb treatment as instructed the left ventral part of the fore-foot has 5x5mm skin opening and it is chronic wound, with minimal clean drainage, I recommend you to continue follow- up with wound care - you need to follow up with your primary care physician in 1 week, - take medication as instructed, never overdose or any misuse, or take with alcohol, because misuse of medicine may cause organ damage or , call your primary care physician if have questions of medicaitons. - call your primary care physician OR go to local emergency room if has any fever/chill, chest pain, shortness of breathing, nausea/vomiting/abdominal pain , facial droop/slurry speech/local weakness, or if has any questions. - fall precaution - diet as instructed - you need to follow up with your subspecialist , such as continue dialysis with industrial psychology teacher - you should understand that it is important to follow up the above instruction , and "not following the above instruction" may cause delayed or missed care of your medical conditions which may cause permanent organ damage and even . This includes examination of the patient, discharge planning, medication reconciliation, and communication with other providers. Discharge Instructions Please refer to the electronic Patient Visit Report (Discharge Instructions) for additional information. Additional Copies To Alix Garza M.D.; Deangelo Hart M.D.
[2016-05-07] MEDS: INSULIN ASPART 100 UNITS/ML 3 ML PEN SC SCH (09:30)
--- NOTE | 2016-05-07 09:36 | Nephrology Progress Note ---
Nephrology Progress Note Date of Service May 07, 2016. Chief Complaint F/U for ESRD Vamshi Harp was seen and examined this am. asymptomatic, BP, volume status stable. Review of Systems A complete review of systems was performed. Pertinent positives are noted above. All other systems are negative. Vital Signs Last 8 Hrs Date Time Temp Pulse Resp B/P Pulse Ox O2 Delivery O2 Flow Rate FiO2 05/07/16 07:47 36.6 73 18 93/59 91 Room Air 05/07/16 07:36 78 16 93 Room Air 05/07/16 00:00 Room Air I & O 24-Hour Column 05/07/16 08:00 Intake Total 1431 ml Output Total 2300 ml Balance -869 ml Last Recorded Weight Weight (Kilograms): 107.400 Physical Exam GENERAL: middle aged male, lethagric, ill-appearing, not in any distress. NECK: Supple, no JVD. RESPIRATORY: Normal breathing efforts, no accessory muscle use, clear to auscultation bilaterally, no wheezes or rales. CARDIOVASCULAR: S1, S2 normal, rate rhythm regular. EXTREMITY: No lower extremity edema NEURO: speech fluent. PSYCHIATRY: Normal mood and judgment Family History Cancer Diabetes mellitus Heart disease Social History Smoking Status: Current every day smoker Alcohol Use: none Drug Use: none Marital Status: , in relationship Housing Status: lives with significant other Occupation: disabled Laboratory Results Past 24 Hours 05/07/16 05:02 Red Blood Count 3.91, Mean Corpuscular Volume 92.6, Mean Corpuscular Hemoglobin 29.4, Mean Corpuscular Hemoglobin Concent 31.8, Mean Platelet Volume 12.5, Neutrophils (%) (Auto) 65.4, Lymphocytes (%) (Auto) 20.7, Monocytes (%) (Auto) 8.4, Eosinophils (%) (Auto) 4.5, Basophils (%) (Auto) 0.7, Neutrophils # (Auto) 4.92, Lymphocytes # (Auto) 1.56, Monocytes # (Auto) 0.63, Eosinophils # (Auto) 0.34, Basophils # (Auto) 0.05 05/07/16 05:25 Test 05/06/16 10:18 05/06/16 11:02 05/06/16 19:19 05/07/16 05:02 Hepatitis B Surface Antigen NEG (NEG) Hepatitis B Surface Antibody POS Bedside Glucose 245 mg/dl (70-99) 108 mg/dl (70-99) White Blood Count 7.52 K/uL (4.8-10.8) Red Blood Count 3.91 M/uL (4.7-6.1) Hemoglobin 11.5 g/dL (14.0-18.0) Hematocrit 36.2 % (42-52) Mean Corpuscular Volume 92.6 fL (80-100) Mean Corpuscular Hemoglobin 29.4 pg (25-34) Mean Corpuscular Hemoglobin Concent 31.8 g/dl (32-36) Platelet Count 105 K/uL (130-400) Mean Platelet Volume 12.5 fL (7.4-10.4) Neutrophils (%) (Auto) 65.4 % Lymphocytes (%) (Auto) 20.7 % Monocytes (%) (Auto) 8.4 % Eosinophils (%) (Auto) 4.5 % Basophils (%) (Auto) 0.7 % Neutrophils # (Auto) 4.92 K/uL (1.4-6.5) Lymphocytes # (Auto) 1.56 K/uL (1.2-3.4) Monocytes # (Auto) 0.63 K/uL (0.11-0.59) Eosinophils # (Auto) 0.34 K/uL (0-0.5) Basophils # (Auto) 0.05 K/uL (0-0.2) RDW Standard Deviation 54.7 fL (36.4-46.3) RDW Coefficient of Variation 16.9 % (11.5-14.5) Immature Granulocyte % (Auto) 0.3 % Immature Granulocyte # (Auto) 0.02 K/uL (0.00-0.02) Polychromasia 1+ Test 05/07/16 05:25 Prothrombin Time 10.8 SECONDS (9.0-12.0) Prothromb Time International Ratio 1.0 (0.9-1.1) Activated Partial Thromboplast Time 31.0 SECONDS (21.0-31.0) Partial Thromboplastin Ratio 1.2 Anion Gap 14.0 mmol/L (3-11) Est Creatinine Clear Calc Drug Dose 22.3 ml/min Estimated GFR () 14.9 Estimated GFR (Non- 12.9 BUN/Creatinine Ratio 4.5 (10-20) Calcium Level 8.0 mg/dl (8.5-10.1) Magnesium Level 2.4 mg/dl (1.8-2.4) Total Bilirubin 1.4 mg/dl (0.2-1) Direct Bilirubin 0.4 mg/dl (0-0.2) Aspartate Amino Transf (AST/SGOT) 27 U/L (15-37) Alanine Aminotransferase (ALT/SGPT) 15 U/L (12-78) Alkaline Phosphatase 144 U/L (45-117) Total Protein 6.3 gm/dl (6.4-8.2) Albumin 2.2 gm/dl (3.4-5.0) Allergies Coded Allergies: Cephalexin (Verified Allergy, Severe, ANAPHYLAXIS, 05/04/16) Acetaminophen (Verified Adverse Reaction, Mild, D/T LIVER, 05/04/16) Medications Current Inpatient Medications Medications (Trade) Dose Ordered Sig/Clarice Route Start Time Stop Time Status Last Admin Dose Admin Aztreonam/Dextrose (Azactam IV/D5 100ml) 102.5 ml @ 100 mls/hr Q8H IV 05/05/16 02:00 05/15/16 01:59 05/07/16 02:04 100 MLS/HR Vancomycin HCl (Consult) 1 ea UD PRN N/A 05/04/16 19:15 06/03/16 19:14 Aztreonam (Consult) 1 ea UD PRN N/A 05/04/16 19:15 06/03/16 19:14 Zolpidem Tartrate (Ambien Tab) 5 mg HSZ PRN PO 05/04/16 20:30 06/03/16 20:29 05/04/16 23:51 5 MG Calcium Acetate (Phoslo Cap) 667 mg TIDM PO 05/05/16 08:00 06/04/16 07:59 05/06/16 19:31 667 MG Cholecalciferol (Vitamin D Tab) 1,000 inter.unit DAILY PO 05/05/16 08:00 06/04/16 08:59 05/06/16 08:23 1,000 INTER.UNIT Duloxetine HCl (Cymbalta Cap) 60 mg HS PO 05/04/16 21:00 06/03/16 20:59 05/06/16 19:33 60 MG Lactulose (Chronulac Syrup) 60 gm TID PO 05/04/16 22:00 06/03/16 21:59 05/06/16 19:31 60 GM Levothyroxine Sodium (Synthroid Tab) 25 mcg DAILYBB PO 05/05/16 06:30 06/04/16 06:29 05/07/16 06:29 25 MCG Nadolol (Corgard Tab) 10 mg HS PO 05/04/16 21:00 06/03/16 20:59 05/06/16 19:32 10 MG Oxycodone HCl (Roxicodone Immediate Rel Tab) 5 mg Q4H PRN PO 05/04/16 20:30 05/18/16 20:29 05/07/16 03:39 5 MG Pregabalin (Lyrica Cap) 75 mg DAILY PO 05/05/16 08:00 06/04/16 08:59 05/06/16 08:29 75 MG Rifaximin (Xifaxan Tab) 550 mg BID PO 05/04/16 21:00 06/03/16 20:59 05/06/16 19:32 550 MG Vitamin B Complex/ Vit C/Folic Acid (Nephrocaps) 1 cap DAILY PO 05/05/16 08:00 06/04/16 08:59 05/06/16 08:23 1 CAP Pantoprazole Sodium (Protonix Tab) 40 mg BID PO 05/04/16 22:00 06/03/16 21:59 05/06/16 19:33 40 MG Ondansetron HCl (Zofran Inj) 4 mg Q6H PRN IV 05/04/16 20:30 06/03/16 20:29 Insulin Aspart (novoLOG ASPART) SLIDING SCALE If C... ACHS SC 05/04/16 21:00 06/03/16 20:59 05/06/16 21:02 8 UNITS Glucose (Glucose 40% Gel) UD PRN PO 05/04/16 20:30 06/03/16 20:29 Glucose (Glucose Chew Tab) 1 tabs UD PRN PO 05/04/16 20:30 06/03/16 20:29 Dextrose (Dextrose 50% 50ML Syringe) 50 ml UD PRN IV 05/04/16 20:30 06/03/16 20:29 Glucagon (Glucagon Inj) 1 mg UD PRN SQ 05/04/16 20:30 06/03/16 20:29 Albuterol/ Ipratropium (Duoneb) 3 ml QIDR INH 05/05/16 12:00 06/04/16 11:59 05/07/16 07:36 3 ML Impression Loyd is a 60-year-old gentlemen with end-stage renal disease on hemodialysis Wednesday, Wednesday, Wednesday, end-stage liver disease, recurrent hospital admission for hepatic encephalopathy admitted to the hospital with change in mental status possibly secondary to pneumonia and started on Vancomycin and aztreonam. He had full dialysis treatment yesterday at outpatient unit as his regular schedule. Currently blood pressure volume status and electrolyte acceptable. He has history of recurrent hospital admission with hepatitic versus us metabolic encephalopathy, history of end-stage liver disease. On admission ammonia level was 39. No leukocytosis. CT scan of head was unremarkable. Recommendations --Had hemodialysis yesterday afternoon, currently BP, volume status and electrolyte stable -- continue on Nephrocaps daily --dose all medications for GFR less than 10 --avoid nephrotoxic medications --OK to be discharged as he seems medically stable. --Pt has spot for out pt dialysis tomorrow.
[2016-05-07 11:19] VITALS: BP 106/70; PULSE 79; TEMP 36.3; O2SAT 92
[2016-05-07 11:25] VITALS: PULSE 89; O2SAT 93
[2016-05-07 12:00] VITALS: BP 106/70; PULSE 89; TEMP 36.3; O2SAT 93
== END 2016-05-07 13:30 | disposition home health service (06) | DRG 871 ==
LOC: ENRESERVTM → ENRESERVDT → EDBD 15:15 → C.EDA 15:16 → C.4E 20:22
PROVIDERS: ADMIT Hospitalist; ATTEND Hospitalist
DX: A41.9 Sepsis, unspecified organism (principal); J18.9 Pneumonia, unspecified organism; N18.6 End stage renal disease; K76.6 Portal hypertension; I13.2 Hypertensive heart and chronic kidney disease with heart failure and with stage 5 chronic kidney disease, or end stage renal disease; M19.90 Unspecified osteoarthritis, unspecified site; K74.60 Unspecified cirrhosis of liver; B18.2 Chronic viral hepatitis C; F41.9 Anxiety disorder, unspecified; J44.9 Chronic obstructive pulmonary disease, unspecified; F32.9 Major depressive disorder, single episode, unspecified; E11.22 Type 2 diabetes mellitus with diabetic chronic kidney disease; Z99.2 Dependence on renal dialysis; E03.9 Hypothyroidism, unspecified; K21.9 Gastro-esophageal reflux disease without esophagitis; Z86.711 Personal history of pulmonary embolism; Z90.49 Acquired absence of other specified parts of digestive tract; Z80.9 Family history of malignant neoplasm, unspecified; Z83.3 Family history of diabetes mellitus; Z82.49 Family history of ischemic heart disease and other diseases of the circulatory system; F17.210 Nicotine dependence, cigarettes, uncomplicated; Z88.8 Allergy status to other drugs, medicaments and biological substances; Z79.899 Other long term (current) drug therapy; Z79.4 Long term (current) use of insulin; J45.909 Unspecified asthma, uncomplicated; E66.9 Obesity, unspecified; Z68.30 Body mass index [BMI] 30.0-30.9, adult; Z66 Do not resuscitate; Z91.19 Patient's noncompliance with other medical treatment and regimen; D69.6 Thrombocytopenia, unspecified

== ENCOUNTER 2016-05-10 08:16 | Emergency (ER) | payer OTHER ==
[~2016-05-10] VITALS: Ht 188 cm; Wt 111.4 kg
[~2016-05-10 08:16] MED LIST changes: +INSU1INJ31 SQ; +LEVO250T47 PO
[2016-05-10 08:32] VITALS: TEMP 36.6; Ht 188 cm; Wt 111.4 kg
[2016-05-10 08:36] VITALS: O2SAT 90
[2016-05-10] MEDS ORDERED: NVLGI/PEN SQ (08:58)
[2016-05-10] MEDS ORDERED: MoRPHine SULFATE 4 MG/ML 1 ML CARP\\VIAL IM STA (09:09)
--- NOTE | 2016-05-10 10:10 | DIAGNOSTIC IMAGING REPORT ---
RIGHT PELVIS/UNILATERAL HIP 2-3VIEWS CLINICAL HISTORY: rt hip pain fall Right pain COMPARISON: None. DISCUSSION: Acetabular protrusion left hip. This appears to be pre-existing. Significant degenerative changes of the left as well as right hip. No well-defined acute bony abnormality of the right hip by plain film criteria. There is no evidence for soft tissue swelling. IMPRESSION: Degenerative change. Left hip acetabular protrusion considered chronic. No acute process Electronically signed by: Gilbert Wu M.D. 05/10/2016 10:08 AM Dictated Date/Time: 05/10/2016 10:07 AM
--- NOTE | 2016-05-10 10:13 | DIAGNOSTIC IMAGING REPORT ---
LEFT RIBS UNILATERAL WITH PA CHEST CLINICAL HISTORY: left rib pain fall trauma. Pain. COMPARISON STUDY: Chest dated 05/04/2016 FINDINGS: Acute cortical fractures left third through eighth ribs. No evidence pneumothorax. Minimal atelectasis left base. IMPRESSION: Acute cortical fractures midaxillary line left third through eighth ribs. No evidence pneumothorax. Minimal atelectasis left base. Electronically signed by: Gilbert Wu M.D. 05/10/2016 10:12 AM Dictated Date/Time: 05/10/2016 10:10 AM
[2016-05-10 10:41] VITALS: BP 95/56; PULSE 53; O2SAT 90
[2016-05-10] MEDS ORDERED: OXYC1TAB3 PO (10:50)
[2016-05-10] MEDS ORDERED: MoRPHine SULFATE 4 MG/ML 1 ML CARP\\VIAL IV STA (10:53)
--- NOTE | 2016-05-10 10:53 | EMERGENCY ROOM VISIT NOTE ---
History Report prepared by Marisela: Leon Blake Under the Supervision of: Brianda CramerO. First contact with patient: 08:49 Chief Complaint: FALL Stated Complaint: FALL, LEFT RIB & CHEST PAIN, R HIP PAIN History of Present Illness The patient is a 60 year old male who presents to the Emergency Room with complaints of persistent right hip and left rib pain s/p falling earlier this morning. He notes movement worsens his symptoms, and reports hearing a pop near his ribs when he fell. He denies losing consciousness. The patient states he broke his left leg over a year ago. He admits to smoking. Source of History: patient Onset: earlier this morning Position: other (left ribs, right hip) Quality: other (rib and hip pain) Timing: other (persistent) Modifying Factors (Worsening): movement Associated Symptoms: No LOC Review of Systems See HPI for pertinent positives & negatives. A total of 10 systems reviewed and were otherwise negative. Past Medical & Surgical Medical Problems: (1) Altered mental status (2) Anemia (3) Anxiety (4) Benign hypertension (5) Chronic hepatitis C (6) Chronic osteoarthritis (7) Cirrhosis of liver (8) Closed left acetabular fracture (9) COPD (chronic obstructive pulmonary disease) (10) Depression (11) Diabetes mellitus type 2 (12) Diabetic peripheral neuropathy associated with type 2 diabetes mellitus (13) End stage liver disease (14) ESRD (end stage renal disease) on dialysis (15) Foot deformity (16) GERD (gastroesophageal reflux disease) (17) Hepatic encephalopathy (18) Hepatic encephalopathy (19) History of diabetic ulcer of foot (20) HISTORY OF TOBACCO USE (21) Hypothyroid (22) Hypoxia (23) Loss of sensation (24) OTHER PANCYTOPENIA (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 (26) PORTAL HYPERTENSION (27) Pre-ulcerative corn or callous (28) Problem with dialysis access (29) Secondary hyperparathyroidism of renal origin (30) Toxic encephalopathy Surgical Problems: (1) H/O knee surgery (2) S/P cholecystectomy (3) S/P tonsillectomy Family History Cancer Diabetes mellitus Heart disease Social History Smoking Status: Current Every Day Smoker Alcohol Use: none, other Drug Use: none Marital Status: , in relationship Housing Status: lives alone Occupation Status: disabled Current/Historical Medications Scheduled Albuterol Sulf (Albuterol Sulfate), 5 MG INH UD Calcium Acetate (Phoslo 667 Mg), 667 MG PO TIDM Cholecalciferol (Vitamin D3), 1,000 INTER.UNIT PO DAILY Duloxetine HCl (Cymbalta), 60 MG PO HS Fluticasone Prop/Salmeterol (Advair Diskus 500/50 60 Dose), 1 PUFF INH BID Insulin Aspart (Novolog Flexpen), 5 UNITS SQ AC Insulin Glargine (Lantus Solostar Pen), 8 UNITS SC BID Lactulose (Constulose), 90 ML PO TID Levofloxacin (Levaquin), 250 MG PO DAILY Levothyroxine Sodium (Synthroid), 25 MG PO DAILY Midodrine Hcl (Midodrine Hcl), 10 MG PO 3XWK Nadolol (Corgard), 10 MG PO HS Omeprazole (Prilosec), 20 MG PO BID Pregabalin (Lyrica), 75 MG PO DAILY Rifaximin (Xifaxan), 550 MG PO BID Vitamin B Cmplx/Vitc/Folic Ac (Nephrocaps), 1 CAP PO DAILY Scheduled PRN Oxycodone Ir (Roxicodone Ir), 5 MG PO Q4H PRN for Pain Oxycodone Ir (Roxicodone Ir), 5 MG PO Q6H PRN for Pain Allergies Coded Allergies: Cephalexin (Verified Allergy, Severe, ANAPHYLAXIS, 05/10/16) Acetaminophen (Verified Adverse Reaction, Mild, D/T LIVER, 05/10/16) Physical Exam Vital Signs Date Time Temp Pulse Resp B/P Pulse Ox O2 Delivery O2 Flow Rate FiO2 05/10/16 10:41 53 18 95/56 90 Room Air 05/10/16 08:41 86 05/10/16 08:36 90 Room Air 05/10/16 08:32 36.6 89 20 104/68 90 Room Air Physical Exam CONSTITUTIONAL/VITAL SIGNS: Reviewed / noted above. GENERAL: Non-toxic in appearance. INTEGUMENTARY: Warm, dry, and [place]. HEAD: Normocephalic. EYES: without scleral icterus or trauma. ENT/OROPHARYNX: clear and moist. LYMPHADENOPATHY/NECK: Is supple without lymphadenopathy or meningismus. RESPIRATORY: Lungs clear and equal. CARDIOVASCULAR: Regular rate and rhythm. CHEST: Tenderness to palpation of the left lateral chest wall. GI/ABDOMEN: Soft and nontender. No organomegaly or pulsatile mass. No rebound or guarding. Normal bowel sounds. EXTREMITIES: Warm and well perfused. Discomfort in right hip with movement. BACK: No CVA tenderness. NEUROLOGICAL: Intact without focal deficits. PSYCHIATRIC: normal affect. MUSCULOSKELETAL: Normally developed with good muscle tone. Medical Decision & Procedures ER Provider Diagnostic Interpretation: X ray results and stated below per my interpretation and radiology interpretation. LEFT RIBS UNILATERAL WITH PA CHEST FINDINGS: Acute cortical fractures left third through eighth ribs. No evidence pneumothorax. Minimal atelectasis left base. IMPRESSION: Acute cortical fractures midaxillary line left third through eighth ribs. No evidence pneumothorax. Minimal atelectasis left base. Electronically signed by: Gilbert Wu M.D. 05/10/2016 10:12 AM Dictated Date/Time: 05/10/2016 10:10 AM RIGHT PELVIS/UNILATERAL HIP 2-3VIEWS DISCUSSION: Acetabular protrusion left hip. This appears to be pre-existing. Significant degenerative changes of the left as well as right hip. No well-defined acute bony abnormality of the right hip by plain film criteria. There is no evidence for soft tissue swelling. IMPRESSION: Degenerative change. Left hip acetabular protrusion considered chronic. No acute process Electronically signed by: Gilbert Wu M.D. 05/10/2016 10:08 AM Dictated Date/Time: 05/10/2016 10:07 AM Medications Administered Medications (Trade) Dose Ordered Sig/Clarice Route Start Time Stop Time Status Last Admin Dose Admin Morphine Sulfate (MoRPHine SULFATE INJ) 4 mg NOW STAT IM 05/10/16 09:09 05/10/16 09:12 DC 05/10/16 09:34 4 MG ED Course 0859: Previous medical records were reviewed. The patient was evaluated in room A3. A complete history and physical examination was performed. 0909: Ordered Morphine Sulfate 4 mg IM. 1100: On reevaluation, the patient is doing well. I discussed the results and findings with the patient. He verbalized agreement of the treatment plan. The patient was discharged home. Medical Decision Differential includes close head injury, intracranial bleed, facial trauma, cervical spine trauma, chest and thoracic trauma, abdominal and intra-abdominal trauma, spine neurologic trauma, extremity trauma. This is a 60-year-old male who presents to the ED with a chief complaint of a sided rib pain and right hip pain. The patient fell at home. Denies loss of consciousness or striking his head. He states that he fell onto his left side. His left hip does not bother him. He did not hit his right hip, a chest hurts. He denies any other symptoms. His physical exam reveals tenderness to palpation left chest wall as well as some discomfort in the right hip with movement. X-ray of the pelvis and right hip did not show any fractures. Chest x-ray reveals rib fractures 3 through 8 laterally. The patient was treated with IV morphine. His pain did improve with this. He will be discharged with OxyIR. He did not want to stay in the hospital or go to rehabilitation. Impression Primary Impression: Multiple fractures of ribs, left side, initial encounter for closed fracture Scribe Attestation The scribe's documentation has been prepared under my direction and personally reviewed by me in its entirety. I confirm that the note above accurately reflects all work, treatment, procedures, and medical decision making performed by me. Departure Information Dispostion Home / Self-Care Prescriptions Oxycodone Ir (Roxicodone Ir) 5 Mg Tab 5 MG PO Q6H Y for Pain, #30 TAB Prov: Patrick Plata D.O. 05/10/16 Referrals Alix Garza M.D. (PCP) Patient Instructions ED Fx Rib, My [facility] Additional Instructions OxyIR as prescribed for pain. No driving within 6 hours of use. May cause drowsiness and constipation. Use your lactulose.
[2016-05-10] MEDS ORDERED: OXYCODONE IR HOME PACK PO ONE (11:00)
== END 2016-05-10 11:40 | disposition home or self-care (01) ==
LOC: EDBD 08:16 → C.EDA 08:18
DX: S22.42XA Multiple fractures of ribs, left side, initial encounter for closed fracture (principal); W19.XXXA Unspecified fall, initial encounter; M24.7 Protrusio acetabuli; F17.200 Nicotine dependence, unspecified, uncomplicated; I10 Essential (primary) hypertension; B18.2 Chronic viral hepatitis C; M19.90 Unspecified osteoarthritis, unspecified site; K74.60 Unspecified cirrhosis of liver; J44.9 Chronic obstructive pulmonary disease, unspecified; F41.9 Anxiety disorder, unspecified; F32.9 Major depressive disorder, single episode, unspecified; E11.43 Type 2 diabetes mellitus with diabetic autonomic (poly)neuropathy; K21.9 Gastro-esophageal reflux disease without esophagitis; E03.9 Hypothyroidism, unspecified; N25.81 Secondary hyperparathyroidism of renal origin; Z86.711 Personal history of pulmonary embolism; Z79.4 Long term (current) use of insulin